=== PATIENT | male | born 1965 | race Hispanic/Latino ===

== ENCOUNTER 2018-08-10 11:51 | Inpatient (IN) | payer BC, OTHER ==
--- NOTE | 2018-08-10 12:36 | ED PDOC ---
Arrival/HPI - General Chief Complaint: Altered Mental Status Historian: Patient, Family - History of Present Illness Narrative History of Present Illness (Text): 08/10/18 12:31 A 53 year old male whose past medical history includes a severe head injury from a fall on May 23, 2017 presents to the emergency room accompanied by family complaining of weakness and progression of mental status changes over the past week. Family states that at the time of the incident, the fall caused the patient to have hemorrhaging to the brain and he was treated at [facility], the closest facility to his injury. Patient then had surgery to place a bone flap on the injury and was placed in the [facility] ICU for 2 months. Patient's family reports patient was then placed in another center called [facility] for 2-3 months where patient still exhibited speech issues and right sided weakness but was able to recover in ambulating and feeding himself. Patient's family notes patient then went home to his family and continued to go to [facility] for regular check ups. Family reports noticing oozing from patient's surgical stitches since March and reports patient had a CT scan performed this past July where doctors noticed an infection prompting the patient to have surgery in [facility] to remove the infection last month. Per family, patient stayed in [facility] for 1 week and was then placed in a [facility] facility where he was administered an IV antibiotic. Family notes that over the past week the patient has been weaker than typical. They feel at times his speech is not at his typical baseline. Patient reports he has had frequent diarrhea and decreased appetite. He denies any abdominal pain. Denies bloody stool. Denies chest pain or shortness of breath. Denies scalp rash or redness. No shakes or chills. Surgeon: Dr. Rodriguez phone #[phone] 08/10/18 14:56 Time/Duration: 1 week Symptom Onset: Gradual Symptom Course: Unchanged Activities at Onset: Light Context: Home Past Medical History - Provider Review Nursing Documentation Reviewed: Yes - Infectious Disease Hx of Infectious Diseases: None - Cardiac Hx Hypertension: Yes - Neurological Other/Comment: BRAIN SUGERY - Psychiatric Hx Substance Use: No - Surgical History Other/Comment: BRAIN SURGERY - Anesthesia Hx Anesthesia: No Hx Anesthesia Reactions: No Hx Malignant Hyperthermia: No Family/Social History - Physician Review Nursing Documentation Reviewed: Yes Family/Social History: Unknown Family HX Smoking Status: Never Smoked Hx Alcohol Use: No Hx Substance Use: No Allergies/Home Meds Allergies/Adverse Reactions: Allergies No Known Allergies Allergy (Verified 08/10/18 12:04) Home Medications: Home Meds Medication Instructions Recorded Confirmed Acetaminophen [Tylenol] 650 mg PO PRN PRN 08/10/18 08/10/18 Atorvastatin [Lipitor] 20 mg PO DAILY 08/10/18 08/10/18 Levetiracetam [Roweepra] 1,000 mg PO 08/10/18 Lisinopril [Zestril] 10 mg PO DAILY 08/10/18 08/10/18 Review of Systems - Review of Systems Systems not reviewed;Unavailable: Other (hx supplemented by family) Constitutional: Fatigue Eyes: absent: Vision Changes ENT: absent: Hearing Changes Respiratory: absent: SOB Cardiovascular: absent: Chest Pain Gastrointestinal: Diarrhea, Appetite Changes (decreased appetite). absent: Abdominal Pain, Nausea, Vomiting, Hematemesis Genitourinary Male: absent: Frequency, Hematuria Musculoskeletal: absent: Back Pain, Neck Pain Skin: absent: Rash Neurological: Focal Weakness (chronic weakness to right upper extremity). absent: Headache Endocrine: absent: Polyuria Hemo/Lymphatic: absent: Easy Bleeding, Easy Bruising Psychiatric: absent: Suicidal Ideation Physical Exam - Physical Exam Narrative Physical Exam (Text): 08/10/18 12:33 Head: Craniotomy deformity chornic to skull. NO erythema or bleeding or drainage noted from scalp. Eyes: PERRL. EOMI. Conjunctivae are not pale. Visual acuity at baseline as reported. ENT: Mucous membranes are dry. No pharyngeal erythema or exudates. Neck: Supple. Full ROM. No JVD. No lymphadenopathy. No meningeal signs. Cardiovascular: Regular rate. Regular rhythm. Systolic murmur. Distal pulses are 2+ and symmetric. Pulmonary/Chest: No evidence of respiratory distress. Clear to auscultation bilaterally. No wheezing, rales or rhonchi. Abdominal: Soft and non-distended. There is no tenderness. No rebound, guarding, or rigidity. No organomegaly. Good bowel sounds. Rectal: foul smelling, brown, hemoccult positive stool Back: No CVA tenderness. Extremities: No edema. No cyanosis. No clubbing. No calf edema. Skin: Skin is warm and dry. No petechiae. No purpura. Neurological: Alert, awake, answers questions. Mild aphasia. Right upper extremity weakness at baseline. Good strength in left upper and bilateral lower extremities. No meningeal signs. Vital Signs Reviewed: Yes Vital Signs Temp Pulse Resp BP Pulse Ox 08/10/18 11:59 97.7 F 71 18 124/59 L 99 Temperature: Afebrile Blood Pressure: Normal Pulse: Regular Respiratory Rate: Normal Appearance: Positive for: Comfortable Pain Distress: None Mental Status: Positive for: other (alert, answers questions appropriately, answers questions) Medical Decision Making ED Course and Treatment: 08/10/18 12:34 Impression: 53 year old male presenting to the emergency room for weakness and gradual change in mental status over the past week. Plan: -- VBG -- Head CT without contrast -- EKG -- Labs -- CBC -- COAGs -- Chest X-ray -- Blood culture -- Urine culture -- Urinalysis -- Reassess and disposition Progress Notes: History obtained from daughter and family members as well as patient. Patient baseline has history of right upper extremity weakness and aphasia. With current neuro exam on stretcher with family present, patient is at baseline. I communicated with patient's covering physician at [facility], Dr. Blunt, and initial treatment plan and history reviewed. On re-exam, patient is noted to deny any pain or discomfort. He is resting comfortably. He notes several episodes of diarrhea "six-seven times a day" for the past several days. He denies abdominal pain although family states that occasionally the patient expresses discomfort. Currently abdomen is soft and nontender. He has been on iv antibiotics recently, differential diagnosis includes colitis, c.diff, dehydration. Cr is elevated. Family and patient unaware of baseline labs. Suspect component of dehydration. IV fluids ordered and patient monitored. As patient's physician is at [facility], patient and family request transfer to [facility]. I discussed labs and imaging with Dr. Blunt, accepts patient for transfer. Discussed with transfer service at [facility] at this time awaiting bed to open for transfer. At 1620 patient noted to have episode of diarrhea that was brown but foul smelling, appeared blood tinged. Hemoccult positive. Initial Hgb noted to be unremarkable although suspect possible component of GI bleeding. CT abdomen/pelvis ordered. Abdomen soft and nontender. Patient with no change in initial mental status. IV fluids continued. 08/10/18 19:[address] Blunt regarding patient's CT and patient's bowel movements and vitals. Given patient's bloody stool and renal failure, as well as currently no beds at [facility], Dr. Blunt recommends admission to [facility]. I discussed this with the patient's power of senior attorney, her daughter, via cell phone and disc ussed patient's ct scan, bloody bowel movements, and communication with Dr. Blunt from [facility]. She is agreeable to admission to [facility]. I discussed case with Dr. Silvestre Armstrong, oncall physician, who accepts admission and requests ICU admission. I have consulted and discussed ct and case with neurology healthcare management consultant Dr. Boston. I have discussed case with gi consult covering for Dr. Evangelista, and po vancomycin and iv metronidazole ordered. Heart rate 90, blood pressure improved to 108/70. - RAD Interpretation Narrative RAD Interpretations (Text): 08/10/18 14:54 Procedure: Head CT Dictator: Cj Marin Impression: Status post large left craniectomy with craniotomy. There is mass effect with midline shift by 11 mm towards the right side but without evidence of downward herniation. No intracranial mass or hemorrhage. Please note that there is no prior examination available for comparison at this time. 08/10/18 15:50 Procedure: Chest X-ray Dictator: Cj Marin Impression: No active disease. Cellar Packer: Radiologist - EKG Interpretation EKG Interpretation (Text): 08/10/18 12:34 EKG: Ordered, reviewed, and independently interpreted the EKG. Rate : 80 BPM Rhythm : NSR Interpretation : No ST-segment elevations or depressions, no T-wave inversions, normal intervals. Interpreted by ED Physician: Yes Type: 12 lead EKG - Scribe Statement The provider has reviewed the documentation as recorded by the An Pascual All medical record entries made by the An were at my direction and personally dictated by me. I have reviewed the chart and agree that the record accurately reflects my personal performance of the history, physical exam, medical decision making, and the department course for this patient. I have also personally directed, reviewed, and agree with the discharge instructions and disposition. Disposition/Present on Arrival - Present on Arrival Any Indicators Present on Arrival: No History of DVT/PE: No History of Uncontrolled Diabetes: No Urinary Catheter: No History of Decub. Ulcer: No History Surgical Site Infection Following: None - Disposition Have Diagnosis and Disposition been Completed?: Yes Diagnosis: Acute renal failure, Altered mental status, Diarrhea, Gastrointestinal bleeding Disposition: HOSPITALIZED Disposition Time: 15:00 Patient Plan: Admission Patient Problems: Current Active Problems Problem Status Onset Acute renal failure Acute Altered mental status Acute Diarrhea Acute Gastrointestinal bleeding Acute Toxic metabolic encephalopathy Acute Traumatic brain injury Chronic Condition: SERIOUS
[2018-08-10 13:00] LABS: VENOUS BLOOD GAS BASE EXCESS -5.1 mmol/L (0.0-2.0); VENOUS BLOOD GAS PO2 27 mm/Hg (30-55); VENOUS BLOOD PH 7.27 (7.32-7.43)
[2018-08-10 13:12] LABS: INR 1.06; PARTIAL THROMBOPLASTIN TIME 34.6 Seconds (26.9-38.3)
[2018-08-10 13:13] LABS: BASO # 0.01 K/mm3 (0.0-2.0); BASO % 0.2 % (0.0-3.0); HEMOGLOBIN 14.4 g/dL (14.0-18.0); LYMPH # 1.1 (1.2-3.4); LYMPH % 18.8 % (22.0-35.0); MEAN CELL VOLUME 81.8 fl (80.0-105.0); MEAN PLATELET VOLUME 10.4 fl (7.0-11.0); MONO # 1.4 (0.1-0.6); MONO % 23.2 % (1.0-6.0); PLATELET COUNT 344 10^3/uL (120.0-450.0); RBC 5.34 10^6/uL (3.5-6.1); RED CELL DISTRIBUTION WIDTH 13.4 % (11.5-14.5); WHITE BLOOD COUNT 5.9 10^3/uL (4.5-11.0)
[2018-08-10 13:19] LABS: ALB/GLOB RATIO 1.4 (1.1-1.8); ALT/SGPT 29 U/L (7-56); AST/SGOT 25 U/L (17-59); BLOOD UREA NITROGEN 33 mg/dL (7-21); CALCIUM 9.6 mg/dL (8.4-10.5); GFR NON-AFRICAN AMERICAN 16
[2018-08-10] MEDS ORDERED: Sodium Chloride 0.9% 500 ML IV STA ×2 (13:27→14:40)
[2018-08-10 13:31] LABS: TROPONIN I < 0.01 ng/mL
[2018-08-10 14:11] LABS: ATYPICAL LYMPHOCYTE 1 % (0.0-0.0); BAND 5 % (0-2); LYMPHOCYTE 20 % (22.0-35.0); MONOCYTE 18 % (1.0-6.0); NEUTROPHIL 54 % (50.0-70.0)
--- NOTE | 2018-08-10 14:16 | CT ---
Date of service: 08/10/2018 PROCEDURE: CT HEAD WITHOUT CONTRAST. HISTORY: ams, hx of brain surgery one year ago COMPARISON: None available. TECHNIQUE: Axial computed tomography images were obtained through the head/brain without intravenous contrast. Radiation dose: Total exam DLP = 841.82 mGy-cm. This CT exam was performed using one or more of the following dose reduction techniques: Automated exposure control, adjustment of the mA and/or kV according to patient size, and/or use of iterative reconstruction technique. FINDINGS: HEMORRHAGE: No intracranial hemorrhage. BRAIN: Status post resection of large portion of left frontal and temporal lobes and small portion of the left parietal lobe. There is encephalomalacia at the edge of the surgical bed. No intracranial mass identified. There is mass effect with resulting midline shift towards the right by approximately 11 mm, consistent with subfalcine herniation. The basilar cisterns are preserved. There is no cerebellar tonsillar herniation. VENTRICLES: No hydrocephalus. CALVARIUM: Large left craniotomy PARANASAL SINUSES: Unremarkable as visualized. No significant inflammatory changes. MASTOID AIR CELLS: Unremarkable as visualized. No inflammatory changes. OTHER FINDINGS: None. IMPRESSION: Status post large left craniectomy with craniotomy. There is mass effect with midline shift by 11 mm towards the right side but without evidence of downward herniation. No intracranial mass or hemorrhage. Please note that there is no prior examination available for comparison at this time.
[2018-08-10] MEDS ORDERED: Sodium Chloride 0.9% 1,000 ML IV SCH (15:30)
--- NOTE | 2018-08-10 15:38 | RAD ---
Date of service: 08/10/2018 PROCEDURE: CHEST RADIOGRAPH, 1 VIEW HISTORY: weakness COMPARISON: None available. FINDINGS: LUNGS: Clear. PLEURA: No pneumothorax or pleural fluid seen. CARDIOVASCULAR: No aortic atherosclerotic calcification present. Normal. OSSEOUS STRUCTURES: No significant abnormalities. VISUALIZED UPPER ABDOMEN: Normal. OTHER FINDINGS: None. IMPRESSION: No active disease.
[2018-08-10 17:15] LABS: PH,URINE 5.5 (4.7-8.0); URINE BILIRUBIN SMALL (NEGATIVE); URINE BLOOD MODERATE (NEGATIVE); URINE GLUCOSE (UA) NEGATIVE (NEGATIVE); URINE LEUKOCYTE ESTERASE NEGATIVE Leu/uL (NEGATIVE); URINE PROTEIN 30 mg/dL (<30 mg/dL); URINE UROBILINOGEN 0.2 E.U./dL (<1 E.U./dL)
--- NOTE | 2018-08-10 17:15 | CT ---
Date of service: 08/10/2018 PROCEDURE: CT Abdomen and Pelvis without intravenous contrast HISTORY: renal failure, hx of abdominal pain, diarrhea COMPARISON: None. TECHNIQUE: Without contrast.. Contrast dose: 0 Radiation dose: Total exam DLP = 677.55 mGy-cm. This CT exam was performed using one or more of the following dose reduction techniques: Automated exposure control, adjustment of the mA and/or kV according to patient size, and/or use of iterative reconstruction technique. FINDINGS: LOWER THORAX: Unremarkable. LIVER: Unremarkable. No gross lesion or ductal dilatation. GALLBLADDER AND BILE DUCTS: Unremarkable. PANCREAS: Unremarkable. No gross lesion or ductal dilatation. SPLEEN: Unremarkable. ADRENALS: Unremarkable. No mass. KIDNEYS AND URETERS: Unremarkable. No hydronephrosis. No solid mass. VASCULATURE: Unremarkable. No aortic aneurysm. There is atherosclerotic calcification of the abdominal aorta. BOWEL: There is mural thickening involving the cecum, ascending colon and hepatic flexure and proximal transverse colon, consistent with nonspecific colitis. This may be infectious or inflammatory etiology. There is no global colitis. No other abnormal bowel loops are identified. There is no bowel obstruction. APPENDIX: Unremarkable. Normal appendix. PERITONEUM: Unremarkable. No free fluid. No free air. LYMPH NODES: Unremarkable. No enlarged lymph nodes. BLADDER: Nondistended REPRODUCTIVE: Normal prostate BONES: No acute fracture. OTHER FINDINGS: None. IMPRESSION: Mural thickening of the right: Including hepatic flexure and proximal transverse colon. Consistent with nonspecific colitis. No additional abnormality.
[2018-08-10 17:16] LABS: URINE APPEARANCE SLIGHT-CLOUDY (CLEAR); URINE COLOR YELLOW (YELLOW)
[2018-08-10 17:25] LABS: URINE CALCIUM OXALATE CRYSTALS FEW /hpf
[2018-08-10] MEDS ORDERED: Sodium Chloride 0.9% 1,000 ML IV STA (17:30)
[2018-08-10] MEDS ORDERED: metroNIDAZOLE IV 500 mg/100 ml 500 MG/100 ML BAG IV ONE (17:59)
[2018-08-10] MEDS ORDERED: Vancomycin 25 MG/ML PO STA (18:55)
--- NOTE | 2018-08-10 20:11 | CARD ---
APPROVED REPORT Date of service: 08/10/2018 EKG Measurement Heart [id number] <Conclusion> Normal sinus rhythm Normal ECG
--- NOTE | 2018-08-10 20:17 | CP.PCM.CON ---
<JoiGuillaume - Last Filed: 08/10/18 21:21> History of Present Illness - History of Present Illness History of Present Illness: Guillaume Tamez PGY2 ICU Consult Note for Dr. Rodriguez Reason for consult: bloody BM and vasovagal Mr. Birch is a 53 year old male whose past medical history includes a severe head injury from a fall (2018) w/ residual expressive aphasia and right side weakness who presented to the emergency room accompanied by family complaining of weakness and progression of mental status changes over the past week. Family notes that over the past week the patient has been weaker than typical. They feel at times his speech is not at his typical baseline. Patient reports he has had frequent diarrhea and decreased appetite. In ED, patient was arranged to be transported to [place] as ED MD discussed with [place]'s neurosurgeon, however, the patient had a large BM that was brown w/ maroon blood streaks while in the ED and became hypotensive, tachycardic and dizzy. At that time, it was decided to keep the patient at [facility] [place] [facility], and ICU was consulted. At the time of our evaluation, the patient's family is not bedside. Patient is a poor historian. He states that at his baseline, he has 6-7 BMs everyday. He has been on antibiotics due to recent hospital admissions, but was not on any at home. He lives at home with his daughter/SHERLEY Valadez in [place]. He denies any abdominal pain, fevers/chills, nausea/vomiting. 12-pt ROS was reviewed and is otherwise unremarkable. PMH: as above PSH: cranial surgeries x2 Meds: reviewed, as per MAR Allergies: NKDA SHx: could not be obtained FHx: unremarkable Review of Systems - Review of Systems All systems: reviewed and no additional remarkable complaints except (as per HPI) Past Patient History - Infectious Disease Hx of Infectious Diseases: None - Past Social History Smoking Status: Never Smoked - CARDIAC Hx Hypertension: Yes - NEUROLOGICAL Other/Comment: BRAIN SUGERY - PSYCHIATRIC Hx Substance Use: No - SURGICAL HISTORY Other/Comment: BRAIN SURGERY - ANESTHESIA Hx Anesthesia: No Hx Anesthesia Reactions: No Hx Malignant Hyperthermia: No Meds Allergies/Adverse Reactions: Allergies Allergy/AdvReac Type Severity Reaction Status Date / Time No Known Allergies Allergy Verified 05/04/19 12:04 - Medications Medications: Current Medications Metronidazole (Flagyl) 500 mg in 100 mls @ 100 mls/hr IVPB Q8 [facility]; Protocol Sodium Chloride (Sodium Chloride 0.9%) 1,000 mls @ 125 mls/hr IV .Q8H [facility] Pantoprazole Sodium (Protonix Inj) 40 mg IVP Q12 [facility] Vancomycin HCl (Vancocin 25 Mg/Ml (Oral Use)) 125 mg PO QID [facility]; Protocol Physical Exam - Constitutional Appears: Non-toxic, No Acute Distress - Head Exam Additional comments: helmet to protect head ED MD evaluated w/o helmet - Eye Exam Eye Exam: Normal appearance, PERRL - ENT Exam ENT Exam: Mucous Membranes Moist, Normal Exam - Neck Exam Neck exam: Positive for: Normal Inspection. Negative for: Tenderness - Respiratory Exam Respiratory Exam: NORMAL BREATHING PATTERN. absent: Respiratory Distress, Stridor - Cardiovascular Exam Cardiovascular Exam: RRR, +S1, +S2 - GI/Abdominal Exam GI & Abdominal Exam: Normal Bowel Sounds, Soft. absent: Distended, Tenderness - Rectal Exam Rectal Exam: Deferred - Extremities Exam Extremities exam: Positive for: normal inspection. Negative for: pedal edema - Neurological Exam Neurological exam: Alert Additional comments: oriented x2 (person and place) - Skin Skin Exam: Normal Color, Warm Results - Vital Signs Recent Vital Signs: Last Vital Signs Temp 97.7 F 08/10/18 11:59 Pulse 72 08/10/18 19:48 Resp 15 08/10/18 19:48 BP 95/56 L 08/10/18 19:48 Pulse Ox 100 08/10/18 19:48 - Labs Result Diagrams: 08/10/18 12:45 08/10/18 12:45 Labs: Laboratory Results - last 24 hr 08/10/18 08/10/18 08/10/18 12:14 12:45 12:45 WBC 5.9 RBC 5.34 Hgb 14.4 Hct 43.7 MCV 81.8 MCH 27.0 MCHC 33.0 RDW 13.4 Plt Count 344 MPV 10.4 Neut % (Auto) 57.8 Lymph % (Auto) 18.8 L [place] % (Auto) 23.2 H Eos % (Auto) 0.0 L Baso % (Auto) 0.2 Lymph # (Auto) 1.1 L [place] # (Auto) 1.4 H Eos # (Auto) 0.0 Baso # (Auto) 0.01 Absolute Neuts (auto) 3.39 Neutrophils % (Manual) 54 Band Neutrophils % 5 H Lymphocytes % (Manual) 20 L Atypical Lymphs % 1 H Monocytes % (Manual) 18 H PT INR APTT pO2 VBG pH VBG pCO2 VBG HCO3 VBG Total CO2 VBG O2 Sat (Calc) VBG Base Excess VBG Potassium Glucose Lactate FiO2 Sodium 143 Potassium 4.7 Chloride 105 Carbon Dioxide 21 Anion Gap 21 H BUN 33 H Creatinine 4.0 H Est GFR ( Amer) 19 Est GFR (Non-Af Amer) 16 POC Glucose (mg/dL) 116 H Random Glucose 98 Calcium 9.6 Magnesium 2.3 H Total Bilirubin 0.3 AST 25 ALT 29 Alkaline Phosphatase 105 Lactate Dehydrogenase 372 Total Creatine Kinase 61 Troponin I < 0.01 Total Protein 8.5 H Albumin 5.0 H Globulin 3.5 Albumin/Globulin Ratio 1.4 Venous Blood Potassium Urine Color Urine Appearance Urine pH Ur Specific [place] Urine Protein Urine Glucose (UA) Urine Ketones Urine Blood Urine Nitrate Urine Bilirubin Urine Urobilinogen Ur Leukocyte Esterase Urine RBC Urine WBC Ur Epithelial Cells Calcium Oxalate Crystal 08/10/18 08/10/18 08/10/18 12:45 12:55 16:30 WBC RBC Hgb Hct MCV MCH MCHC RDW Plt Count MPV Neut % (Auto) Lymph % (Auto) [place] % (Auto) Eos % (Auto) Baso % (Auto) Lymph # (Auto) [place] # (Auto) Eos # (Auto) Baso # (Auto) Absolute Neuts (auto) Neutrophils % (Manual) Band Neutrophils % Lymphocytes % (Manual) Atypical Lymphs % Monocytes % (Manual) PT 12.0 INR 1.06 APTT 34.6 pO2 27 L VBG pH 7.27 L VBG pCO2 48.0 VBG HCO3 22.0 VBG Total CO2 23.5 VBG O2 Sat (Calc) 47.9 VBG Base Excess -5.1 L VBG Potassium 5.1 Glucose 95 Lactate 0.9 FiO2 21.0 Sodium 137.0 Potassium Chloride 108.0 H Carbon Dioxide Anion Gap BUN Creatinine Est GFR ( Amer) Est GFR (Non-Af Amer) POC Glucose (mg/dL) Random Glucose Calcium Magnesium Total Bilirubin AST ALT Alkaline Phosphatase Lactate Dehydrogenase Total Creatine Kinase Troponin I Total Protein Albumin Globulin Albumin/Globulin Ratio Venous Blood Potassium 5.1 Urine Color Yellow Urine Appearance Slight-cloudy Urine pH 5.5 Ur Specific [place] >= 1.030 Urine Protein 30 H Urine Glucose (UA) Negative Urine Ketones Trace H Urine Blood Moderate H Urine Nitrate Negative Urine Bilirubin Small H Urine Urobilinogen 0.2 Ur Leukocyte Esterase Negative Urine RBC 5 - 10 H Urine WBC None Ur Epithelial Cells None Calcium Oxalate Crystal Few 08/10/18 16:41 WBC RBC Hgb Hct MCV MCH MCHC RDW Plt Count MPV Neut % (Auto) Lymph % (Auto) [place] % (Auto) Eos % (Auto) Baso % (Auto) Lymph # (Auto) [place] # (Auto) Eos # (Auto) Baso # (Auto) Absolute Neuts (auto) Neutrophils % (Manual) Band Neutrophils % Lymphocytes % (Manual) Atypical Lymphs % Monocytes % (Manual) PT INR APTT pO2 VBG pH VBG pCO2 VBG HCO3 VBG Total CO2 VBG O2 Sat (Calc) VBG Base Excess VBG Potassium Glucose Lactate FiO2 Sodium Potassium Chloride Carbon Dioxide Anion Gap BUN Creatinine Est GFR ( Amer) Est GFR (Non-Af Amer) POC Glucose (mg/dL) 121 H Random Glucose Calcium Magnesium Total Bilirubin AST ALT Alkaline Phosphatase Lactate Dehydrogenase Total Creatine Kinase Troponin I Total Protein Albumin Globulin Albumin/Globulin Ratio Venous Blood Potassium Urine Color Urine Appearance Urine pH Ur Specific [place] Urine Protein Urine Glucose (UA) Urine Ketones Urine Blood Urine Nitrate Urine Bilirubin Urine Urobilinogen Ur Leukocyte Esterase Urine RBC Urine WBC Ur Epithelial Cells Calcium Oxalate Crystal Assessment & Plan - Assessment and Plan (Free Text) Assessment: 53 year old male whose past medical history includes a severe head injury from a fall (2018) w/ residual expressive aphasia and right side weakness who is admitted for diarrhea and colitis. CT reviewed showing diffuse colitis, likely indicating c.diff colitis given history of extensive recent antibiotic use. Patient is having hypotensive so patient is also at risk for ischemic colitis. Urine is concentrated, so patient's elevated Cr likely indicated pre-renal TONO and Hgb is probably hemoconcentrated. Plan: Neuro - Head CT reviewed; ED discussed findings w/ Dr. [place]'s neurosurgery - at baseline - neurochecks - admit to ICU for monitoring - awaiting neuro recs - cont home dose Keppra Cardio - holding home BP meds - NS @ 125 - maintain MAP > 65 Pulm - O2 PRN - maintain SaO2> 90 GI - CT abd/pelvis reviewed; showing diffuse colitis - cont Protonix IVP q12 - c.diff labs ordered; started empirically on Vanco PO and Flagyl - celiac disease comprehensive panel ordered, which includes ANCA and ASCA to r/o IBD - GI consulted, recs appreciated - NPO Renal - TONO noted, unknown baseline - continue NS for IVF @ 125 - f/u CMP - holding ACEi - avoid nephrotoxins Heme - will repeat CBC to monitor for hematochezia - currently no signs of symptomatic anemia ID - will start empirically on PO vanc and Flagyl - Blood, urine and c.diff cultures sent - maintain normothermia Endo - maintain euglycemia DVT ppx: SCDs GI ppx: protonix Case was reviewed with Dr. Rodriguez <Alycia Rodriguez - Last Filed: 08/11/18 18:44> Meds - Medications Medications: Current Medications Atorvastatin Calcium (Lipitor) 20 mg PO DIN [facility] Last Admin: 08/11/18 17:37 Dose: 20 mg Sodium Chloride (Sodium Chloride 0.9%) 1,000 mls @ 125 mls/hr IV .Q8H [facility] Last Admin: 08/11/18 15:36 Dose: 125 mls/hr Levetiracetam (Keppra) 1,000 mg PO BID [facility] Last Admin: 08/11/18 17:36 Dose: 1,000 mg Lisinopril (Zestril) 10 mg PO DAILY [facility] Last Admin: 08/11/18 09:21 Dose: 10 mg Pantoprazole Sodium (Protonix Inj) 40 mg IVP Q12 [facility] Last Admin: 08/11/18 09:20 Dose: 40 mg Results - Vital Signs Recent Vital Signs: Last Vital Signs Temp 97.2 F L 08/11/18 16:00 Pulse 81 08/11/18 17:40 Resp 21 08/11/18 17:40 BP 98/75 L 08/11/18 17:00 Pulse Ox 100 08/11/18 17:40 - Labs Result Diagrams: 08/11/18 04:40 08/11/18 04:40 Labs: Laboratory Results - last 24 hr 08/10/18 08/10/18 08/10/18 22:00 23:45 23:45 WBC 4.2 L D RBC 4.69 Hgb 12.4 L D Hct 38.4 L MCV 81.9 MCH 26.4 MCHC 32.3 RDW 13.5 Plt Count 260 MPV 10.0 Neut % (Auto) 36.3 L Lymph % (Auto) 30.5 [place] % (Auto) 32.5 H Eos % (Auto) 0.2 L Baso % (Auto) 0.5 Lymph # (Auto) 1.3 [place] # (Auto) 1.4 H Eos # (Auto) 0.0 Baso # (Auto) 0.02 Absolute Neuts (auto) 1.51 PT INR Sodium Potassium Chloride Carbon Dioxide Anion Gap BUN Creatinine Est GFR ( Amer) Est GFR (Non-Af Amer) Random Glucose Hemoglobin A1c Calcium Phosphorus Magnesium Iron 65 TIBC 313 % Saturation 21 Transferrin Ferritin Total Bilirubin AST ALT Alkaline Phosphatase Total Protein Albumin Globulin Albumin/Globulin Ratio Triglycerides Cholesterol LDL Cholesterol Direct HDL Cholesterol Vitamin B12 Folate TSH 3rd Generation Blood Type O POSITIVE Blood Type Confirm Antibody Screen Negative BBK History Checked No verified bt 08/10/18 08/11/18 08/11/18 23:45 04:40 04:40 WBC RBC Hgb Hct MCV MCH MCHC RDW Plt Count MPV Neut % (Auto) Lymph % (Auto) [place] % (Auto) Eos % (Auto) Baso % (Auto) Lymph # (Auto) [place] # (Auto) Eos # (Auto) Baso # (Auto) Absolute Neuts (auto) PT INR Sodium 141 Potassium 4.8 Chloride 111 H Carbon Dioxide 20 L Anion Gap 16 BUN 30 H Creatinine 3.0 H Est GFR ( Amer) 27 Est GFR (Non-Af Amer) 22 Random Glucose 87 Hemoglobin A1c 5.5 Calcium 9.0 Phosphorus Magnesium Iron TIBC % Saturation Transferrin 181.92 L Ferritin Total Bilirubin 0.3 AST 15 L D ALT 21 Alkaline Phosphatase 90 Total Protein 6.8 Albumin 4.0 Globulin 2.9 Albumin/Globulin Ratio 1.4 Triglycerides Cholesterol LDL Cholesterol Direct HDL Cholesterol Vitamin B12 Folate TSH 3rd Generation 2.09 Blood Type Blood Type Confirm Antibody Screen BBK History Checked 08/11/18 08/11/18 08/11/18 04:40 04:40 04:40 WBC 4.0 L RBC 4.75 Hgb 12.7 L Hct 39.1 L MCV 82.3 MCH 26.7 MCHC 32.5 RDW 13.5 Plt Count 250 MPV 10.4 Neut % (Auto) Lymph % (Auto) [place] % (Auto) Eos % (Auto) Baso % (Auto) Lymph # (Auto) [place] # (Auto) Eos # (Auto) Baso # (Auto) Absolute Neuts (auto) PT INR Sodium 143 Potassium 5.0 Chloride 113 H Carbon Dioxide 19 L Anion Gap 17 BUN 29 H Creatinine 2.6 H Est GFR ( Amer) 31 Est GFR (Non-Af Amer) 26 Random Glucose 85 Hemoglobin A1c Calcium 9.0 Phosphorus 4.0 Magnesium 2.2 Iron TIBC % Saturation Transferrin Ferritin 312.0 Total Bilirubin 0.3 AST 15 L ALT 25 Alkaline Phosphatase 92 Total Protein 7.0 Albumin 4.1 Globulin 2.9 Albumin/Globulin Ratio 1.4 Triglycerides 158 Cholesterol 86 L LDL Cholesterol Direct 35 HDL Cholesterol 27 L Vitamin B12 289 Folate 9.3 TSH 3rd Generation Blood Type Blood Type Confirm O POSITIVE Antibody Screen BBK History Checked 08/11/18 04:40 WBC RBC Hgb Hct MCV MCH MCHC RDW Plt Count MPV Neut % (Auto) Lymph % (Auto) [place] % (Auto) Eos % (Auto) Baso % (Auto) Lymph # (Auto) [place] # (Auto) Eos # (Auto) Baso # (Auto) Absolute Neuts (auto) PT 12.7 H INR 1.14 Sodium Potassium Chloride Carbon Dioxide Anion Gap BUN Creatinine Est GFR ( Amer) Est GFR (Non-Af Amer) Random Glucose Hemoglobin A1c Calcium Phosphorus Magnesium Iron TIBC % Saturation Transferrin Ferritin Total Bilirubin AST ALT Alkaline Phosphatase Total Protein Albumin Globulin Albumin/Globulin Ratio Triglycerides Cholesterol LDL Cholesterol Direct HDL Cholesterol Vitamin B12 Folate TSH 3rd Generation Blood Type Blood Type Confirm Antibody Screen BBK History Checked Attending/Attestation - Attestation I have personally seen and examined this patient.: Yes I have fully participated in the care of the patient.: Yes I have reviewed all pertinent clinical information: Yes Notes (Text): 08/11/18 18:43 Seen and examined. Discussed with resident. A&P as above. GIB 2/2 colitis R/ C diff TONO Mgmt as above
[2018-08-10] MEDS: Sodium Chloride 0.9% 1,000 ML IV SCH (22:00)
[2018-08-10] MEDS: metroNIDAZOLE IV 500 mg/100 ml 500 MG/100 ML BAG IVPB SCH (22:57)
[2018-08-10] MEDS: Vancomycin 25 MG/ML PO SCH (23:04)
[2018-08-10 23:16] LABS: IRON 65 ug/dL (45-180)
[2018-08-10 23:25] LABS: % IRON SATURATION 21 % (20-55); TOTAL IRON BINDING CAPACITY 313 ug/dL (261-462)
[2018-08-10 23:43] VITALS: BMI 22.9
[2018-08-10 23:53] LABS: BASO # 0.02 K/mm3 (0.0-2.0); BASO % 0.5 % (0.0-3.0); EOS % 0.2 % (1.5-5.0); LYMPH # 1.3 (1.2-3.4); LYMPH % 30.5 % (22.0-35.0); MEAN CELL VOLUME 81.9 fl (80.0-105.0); MEAN CORPUSCULAR HEMOGLOBIN 26.4 pg (25.0-35.0); MEAN CORPUSCULAR HGB CONC 32.3 g/dl (31.0-37.0); MONO # 1.4 (0.1-0.6); MONO % 32.5 % (1.0-6.0); RBC 4.69 10^6/uL (3.5-6.1); RED CELL DISTRIBUTION WIDTH 13.5 % (11.5-14.5); WHITE BLOOD COUNT 4.2 10^3/uL (4.5-11.0)
[2018-08-11 00:03] LABS: HEMOGLOBIN 12.4 g/dL (14.0-18.0)
[2018-08-11 00:06] LABS: ALB/GLOB RATIO 1.4 (1.1-1.8)
--- NOTE | 2018-08-11 03:30 | HP ---
DATE OF EXAM: 08/10/2018 HISTORY OF PRESENT ILLNESS: I was called down to the ER to see him this evening. He is a 53-year-old white man who comes in to the emergency room complaining of weakness, change in mental status over the past week. He had a past medical history of a severe head injury from a fall which caused him to have a hemorrhagic bleed at [place]. They put a bone flap in. He is still having speech issues, right-sided weakness and there was oozing coming from the surgical stitches in the head, had infection, went back to [place], on IV antibiotics. I believe take out the brain area which is infected and brain surgery. Hypertensive. FAMILY HISTORY: Unknown family history. SOCIAL HISTORY: Nonsmoker, nondrinker, no drugs. ALLERGIES: NO KNOWN DRUG ALLERGIES. MEDICATIONS: He is on Tylenol, Lipitor, levetiracetam 1000 mg, and Zestril. REVIEW OF SYSTEMS: Supplemented by family; he is tired. No acute vision or hearing changes. No shortness of breath. No chest pain. He had some diarrhea. Decreased appetite. No abdominal pain, just weird in the stomach. No problems urinating. No back pain, no neck pain, no rashes. He is just focally weak, chronic weakness in right upper extremity. No problems urinating. No easy bleeding, no easy bruising. No suicidal thoughts. PHYSICAL EXAMINATION: VITAL SIGNS: 97.7 temperature, 71 pulse, 18 respiratory rate, 124/59 blood pressure, 99% O2 sat. HEENT: His head is not normocephalic. 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 He wears a skullcap. Extraocular muscles are intact. Throat is moist. NECK: Supple. No lymphadenopathy. No meningeal signs. HEART: Regular rate. There is systolic murmur 2/6. LUNGS: Decreased breath sounds bilaterally, but clear to auscultation. No wheezes, no rhonchi, no rales. ABDOMEN: Soft, nontender, positive bowel sounds. No guarding, no rebound, no CVA tenderness. Hemoccult positive stool. We will have GI take a look at him. EXTREMITIES: No CVA tenderness. No edema of the extremities. SKIN: Warm and dry. No apparent rashes or ulcers. NEUROLOGIC: He is alert and awake, answers questions, mild aphasia. Good strength in bilateral lower extremities. DIAGNOSTIC DATA: He had multiple tests done. He had a CT scan of the abdomen and pelvis, which showed mural thickening of the right, nonspecific colitis. CT scan of the head shows a surgery, post large left craniectomy with craniotomy. There was a mass effect with midline shift without herniation. No bleed at this time. Chest x-ray: No active disease. EKG is normal sinus rhythm. He had lab tests. Sodium 143, potassium 4.7, BUN is 33, creatinine is 4, quite elevated. GFR 16, sugar is 121, calcium is 9.6. Magnesium 2.3, total bili is 0.3. AST is 25, ALT is 29, alk phos 105. Lactate dehydrogenase is 372. Troponin I is less than 0.01, total protein is 8.5. Lactate is 0.9. He has 1.06 INR, 5.9 white count, 14.4 hemoglobin, 43.7 hematocrit with 344 platelets. The plan was supposed to be transferring him to [facility]. They do not have any beds. We had to put him to intensive care unit. He has a GI bleed, colitis, history of brain surgery, and acute kidney injury versus renal failure. Admitted to intensive care unit. He will have consults with GI, Neuro, Infectious Disease, and Renal. IV fluids, put back on his medications. He will be on vancomycin and metronidazole. He is n.p.o. We will check his labs in the morning. Arvind Armstrong DO MTDJulissa
[2018-08-11 05:02] LABS: INR 1.14; PROTHROMBIN TIME 12.7 SECONDS (9.4-12.5)
[2018-08-11 05:08] LABS: ALB/GLOB RATIO 1.4 (1.1-1.8); ALBUMIN 4.1 g/dL (3.0-4.8)
[2018-08-11] MEDS: Sodium Chloride 0.9% 1,000 ML IV SCH ×3 (05:08→23:30)
[2018-08-11] MEDS: metroNIDAZOLE IV 500 mg/100 ml 500 MG/100 ML BAG IVPB SCH ×2 (05:09→14:19)
[2018-08-11 05:13] LABS: HEMOGLOBIN 12.7 g/dL (14.0-18.0); MEAN CELL VOLUME 82.3 fl (80.0-105.0); MEAN CORPUSCULAR HEMOGLOBIN 26.7 pg (25.0-35.0); MEAN CORPUSCULAR HGB CONC 32.5 g/dl (31.0-37.0); MEAN PLATELET VOLUME 10.4 fl (7.0-11.0); RBC 4.75 10^6/uL (3.5-6.1); RED CELL DISTRIBUTION WIDTH 13.5 % (11.5-14.5)
[2018-08-11] MEDS: Vancomycin 25 MG/ML PO SCH ×2 (09:21→14:20)
--- NOTE | 2018-08-11 10:04 | CP.PCM.CON ---
History of Present Illness - History of Present Illness History of Present Illness: Asked by Dr. Armstrong for a GI consultation on this patient. 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 He reports having multiple (up to 5 episodes) of loose, non-bloody bowel movements daily during this time period with associated mild 3/10 intensity epigastric pain. As a result he feels fatigued and came to hospital for further evaluation, was found to be hypotensive in ER and sent to intensive care unit. He denies nausea, vomiting, fever/chills, weight loss, rectal bleeding, recent travel, sick contacts, or antibiotic use. As per nursing staff, no bowel movements overnight, he had one soft bowel movement this morning. He claims to have had a colonoscopy 4 years ago which was normal as per patient, though he cannot recall where it was performed. Social history: non-smoker, social ETOH use Family history: father (unknown cancer) Review of Systems - Review of Systems Review of Systems: - All other comprehensive 12 point review of systems performed, negative - Constitutional Constitutional: Fatigue, Lethargy - Cardiovascular Cardiovascular: absent: Acrocyanosis, Chest Pain, Chest Pain at Rest, Chest Pain with Activity, Claudication, Diaphoresis, Dyspnea, Dyspnea on Exertion, Edema, Irregular Heart Rhythm, Pain Radiating to Arm/Neck/Jaw, Leg Edema, Leg Ulcers, Lightheadedness, Orthopnea, Palpitations, Paroxysmal Nocturnal Dyspnea, Pedal Edema, Radiating Pain, Rapid Heart Rate, Slow Heart Rate, Syncope, Other - Respiratory Respiratory: absent: Cough, Dyspnea, Hemoptysis, Dyspnea on Exertion, Wheezing, Snoring, Stridor, Pain on Inspiration, Chest Congestion, Excessive Mucous Production, Change in Mucous Color, Pain with Coughing, Other - Gastrointestinal Gastrointestinal: Abdominal Pain, Diarrhea - Musculoskeletal Musculoskeletal: absent: Abnormal Gait, Arthralgias, Atrophy, Back Pain, Deformity, Joint Swelling, Limited Range of Motion, Loss of Height, Muscle Cramps, Muscle Weakness, Myalgias, Neck Pain, Numbness, Radiating Pain into Limb, Stiffness, Tingling, Other - Neurological Neurological: absent: Abnormal Gait, Abnormal Hearing, Abnormal Movements, Abnormal Speech, Behavioral Changes, Burning Sensations, Confusion, Convulsions, Disequilibrium, Dizziness, Numbness, Focal Weakness, Frequent Falls, Headaches, Lack of Coordination, Loss of Vision, Memory Loss, Paresthesias, Radicular Pain, Restless Legs, Sensory Deficit, Syncope, Tingling, Tremor, Vertigo, Weakness, Other Visual Disturbances, Other Past Patient History - Infectious Disease Hx of Infectious Diseases: None - Past Social History Smoking Status: Never Smoked - CARDIAC Hx Hypertension: Yes - PULMONARY Hx Respiratory Disorders: No - NEUROLOGICAL Other/Comment: .traumatic brain injury.BRAIN SUGERY - HEENT Hx HEENT Problems: No - RENAL Hx Chronic Kidney Disease: No - ENDOCRINE/METABOLIC Hx Endocrine Disorders: No - HEMATOLOGICAL/ONCOLOGICAL Hx Blood Disorders: No - INTEGUMENTARY Hx Dermatological Problems: No - MUSCULOSKELETAL/RHEUMATOLOGICAL Hx Falls: Yes - GASTROINTESTINAL Hx Gastrointestinal Disorders: No - GENITOURINARY/GYNECOLOGICAL Hx Genitourinary Disorders: No - PSYCHIATRIC Hx Psychophysiologic Disorder: No Hx Substance Use: No - SURGICAL HISTORY Hx Surgeries: Yes Other/Comment: craniectomy,craniotomy.BRAIN SURGERY - ANESTHESIA Hx Anesthesia: No Hx Anesthesia Reactions: No Hx Malignant Hyperthermia: No Meds Allergies/Adverse Reactions: Allergies Allergy/AdvReac Type Severity Reaction Status Date / Time No Known Allergies Allergy Verified 08/10/18 12:04 - Medications Medications: Current Medications Atorvastatin Calcium (Lipitor) 20 mg PO DIN HARIS Metronidazole (Flagyl) 500 mg in 100 mls @ 100 mls/hr IVPB Q8 [facility]; Protocol Last Admin: 08/11/18 05:09 Dose: 100 mls/hr Sodium Chloride (Sodium Chloride 0.9%) 1,000 mls @ 125 mls/hr IV .Q8H [facility] Last Admin: 08/11/18 05:08 Dose: 125 mls/hr Levetiracetam (Keppra) 1,000 mg PO BID [facility] Last Admin: 08/11/18 09:21 Dose: 1,000 mg Lisinopril (Zestril) 10 mg PO DAILY [facility] Last Admin: 08/11/18 09:21 Dose: 10 mg Pantoprazole Sodium (Protonix Inj) 40 mg IVP Q12 [facility] Last Admin: 08/11/18 09:20 Dose: 40 mg Vancomycin HCl (Vancocin 25 Mg/Ml (Oral Use)) 125 mg PO QID [facility]; Protocol Last Admin: 08/11/18 09:21 Dose: 125 mg Physical Exam - Constitutional Appears: Non-toxic, No Acute Distress - Head Exam Additional comments: + helmet intact - Eye Exam Eye Exam: EOMI, Normal appearance - ENT Exam ENT Exam: Mucous Membranes Moist - Respiratory Exam Respiratory Exam: Clear to Auscultation Bilateral - Cardiovascular Exam Cardiovascular Exam: REGULAR RHYTHM, +S1, +S2 - GI/Abdominal Exam GI & Abdominal Exam: Normal Bowel Sounds, Soft Additional comments: non tender to palpation in four quadrants no palpable hepato/splenomegaly - Extremities Exam Extremities exam: Positive for: normal inspection - Neurological Exam Neurological exam: Alert, CN II-XII Intact, Oriented x3, Reflexes Normal Additional comments: RUE strength 1/5 - Psychiatric Exam Psychiatric exam: Normal Affect, Normal Mood - Skin Skin Exam: Dry, Intact, Normal Color, Warm Results - Vital Signs Recent Vital Signs: Last Vital Signs Temp 97.9 F 08/11/18 08:00 Pulse 78 08/11/18 09:21 Resp 15 08/11/18 05:59 BP 112/60 08/11/18 09:21 Pulse Ox 99 08/11/18 05:59 - Labs Result Diagrams: 08/11/18 04:40 08/11/18 04:40 Labs: Laboratory Results - last 24 hr 08/10/18 08/10/18 08/10/18 12:14 12:45 12:45 WBC 5.9 RBC 5.34 Hgb 14.4 Hct 43.7 MCV 81.8 MCH 27.0 MCHC 33.0 RDW 13.4 Plt Count 344 MPV 10.4 Neut % (Auto) 57.8 Lymph % (Auto) 18.8 L [place] % (Auto) 23.2 H Eos % (Auto) 0.0 L Baso % (Auto) 0.2 Lymph # (Auto) 1.1 L [place] # (Auto) 1.4 H Eos # (Auto) 0.0 Baso # (Auto) 0.01 Absolute Neuts (auto) 3.39 Neutrophils % (Manual) 54 Band Neutrophils % 5 H Lymphocytes % (Manual) 20 L Atypical Lymphs % 1 H Monocytes % (Manual) 18 H PT INR APTT pO2 VBG pH VBG pCO2 VBG HCO3 VBG Total CO2 VBG O2 Sat (Calc) VBG Base Excess VBG Potassium Glucose Lactate FiO2 Sodium 143 Potassium 4.7 Chloride 105 Carbon Dioxide 21 Anion Gap 21 H BUN 33 H Creatinine 4.0 H Est GFR ( Amer) 19 Est GFR (Non-Af Amer) 16 POC Glucose (mg/dL) 116 H Random Glucose 98 Calcium 9.6 Phosphorus Magnesium 2.3 H Iron TIBC % Saturation Total Bilirubin 0.3 AST 25 ALT 29 Alkaline Phosphatase 105 Lactate Dehydrogenase 372 Total Creatine Kinase 61 Troponin I < 0.01 Total Protein 8.5 H Albumin 5.0 H Globulin 3.5 Albumin/Globulin Ratio 1.4 Triglycerides Cholesterol LDL Cholesterol Direct HDL Cholesterol TSH 3rd Generation Venous Blood Potassium Urine Color Urine Appearance Urine pH Ur Specific [place] Urine Protein Urine Glucose (UA) Urine Ketones Urine Blood Urine Nitrate Urine Bilirubin Urine Urobilinogen Ur Leukocyte Esterase Urine RBC Urine WBC Ur Epithelial Cells Calcium Oxalate Crystal Blood Type Blood Type Confirm Antibody Screen BBK History Checked 08/10/18 08/10/18 08/10/18 12:45 12:55 16:30 WBC RBC Hgb Hct MCV MCH MCHC RDW Plt Count MPV Neut % (Auto) Lymph % (Auto) [place] % (Auto) Eos % (Auto) Baso % (Auto) Lymph # (Auto) [place] # (Auto) Eos # (Auto) Baso # (Auto) Absolute Neuts (auto) Neutrophils % (Manual) Band Neutrophils % Lymphocytes % (Manual) Atypical Lymphs % Monocytes % (Manual) PT 12.0 INR 1.06 APTT 34.6 pO2 27 L VBG pH 7.27 L VBG pCO2 48.0 VBG HCO3 22.0 VBG Total CO2 23.5 VBG O2 Sat (Calc) 47.9 VBG Base Excess -5.1 L VBG Potassium 5.1 Glucose 95 Lactate 0.9 FiO2 21.0 Sodium 137.0 Potassium Chloride 108.0 H Carbon Dioxide Anion Gap BUN Creatinine Est GFR ( Amer) Est GFR (Non-Af Amer) POC Glucose (mg/dL) Random Glucose Calcium Phosphorus Magnesium Iron TIBC % Saturation Total Bilirubin AST ALT Alkaline Phosphatase Lactate Dehydrogenase Total Creatine Kinase Troponin I Total Protein Albumin Globulin Albumin/Globulin Ratio Triglycerides Cholesterol LDL Cholesterol Direct HDL Cholesterol TSH 3rd Generation Venous Blood Potassium 5.1 Urine Color Yellow Urine Appearance Slight-cloudy Urine pH 5.5 Ur Specific [place] >= 1.030 Urine Protein 30 H Urine Glucose (UA) Negative Urine Ketones Trace H Urine Blood Moderate H Urine Nitrate Negative Urine Bilirubin Small H Urine Urobilinogen 0.2 Ur Leukocyte Esterase Negative Urine RBC 5 - 10 H Urine WBC None Ur Epithelial Cells None Calcium Oxalate Crystal Few Blood Type Blood Type Confirm Antibody Screen BBK History Checked 08/10/18 08/10/18 08/10/18 16:41 22:00 23:45 WBC RBC Hgb Hct MCV MCH MCHC RDW Plt Count MPV Neut % (Auto) Lymph % (Auto) [place] % (Auto) Eos % (Auto) Baso % (Auto) Lymph # (Auto) [place] # (Auto) Eos # (Auto) Baso # (Auto) Absolute Neuts (auto) Neutrophils % (Manual) Band Neutrophils % Lymphocytes % (Manual) Atypical Lymphs % Monocytes % (Manual) PT INR APTT pO2 VBG pH VBG pCO2 VBG HCO3 VBG Total CO2 VBG O2 Sat (Calc) VBG Base Excess VBG Potassium Glucose Lactate FiO2 Sodium Potassium Chloride Carbon Dioxide Anion Gap BUN Creatinine Est GFR ( Amer) Est GFR (Non-Af Amer) POC Glucose (mg/dL) 121 H Random Glucose Calcium Phosphorus Magnesium Iron 65 TIBC 313 % Saturation 21 Total Bilirubin AST ALT Alkaline Phosphatase Lactate Dehydrogenase Total Creatine Kinase Troponin I Total Protein Albumin Globulin Albumin/Globulin Ratio Triglycerides Cholesterol LDL Cholesterol Direct HDL Cholesterol TSH 3rd Generation Venous Blood Potassium Urine Color Urine Appearance Urine pH Ur Specific [place] Urine Protein Urine Glucose (UA) Urine Ketones Urine Blood Urine Nitrate Urine Bilirubin Urine Urobilinogen Ur Leukocyte Esterase Urine RBC Urine WBC Ur Epithelial Cells Calcium Oxalate Crystal Blood Type O POSITIVE Blood Type Confirm Antibody Screen Negative BBK History Checked No verified bt 08/10/18 08/10/18 08/11/18 23:45 23:45 04:40 WBC 4.2 L D RBC 4.69 Hgb 12.4 L D Hct 38.4 L MCV 81.9 MCH 26.4 MCHC 32.3 RDW 13.5 Plt Count 260 MPV 10.0 Neut % (Auto) 36.3 L Lymph % (Auto) 30.5 [place] % (Auto) 32.5 H Eos % (Auto) 0.2 L Baso % (Auto) 0.5 Lymph # (Auto) 1.3 [place] # (Auto) 1.4 H Eos # (Auto) 0.0 Baso # (Auto) 0.02 Absolute Neuts (auto) 1.51 Neutrophils % (Manual) Band Neutrophils % Lymphocytes % (Manual) Atypical Lymphs % Monocytes % (Manual) PT INR APTT pO2 VBG pH VBG pCO2 VBG HCO3 VBG Total CO2 VBG O2 Sat (Calc) VBG Base Excess VBG Potassium Glucose Lactate FiO2 Sodium 141 Potassium 4.8 Chloride 111 H Carbon Dioxide 20 L Anion Gap 16 BUN 30 H Creatinine 3.0 H Est GFR ( Amer) 27 Est GFR (Non-Af Amer) 22 POC Glucose (mg/dL) Random Glucose 87 Calcium 9.0 Phosphorus Magnesium Iron TIBC % Saturation Total Bilirubin 0.3 AST 15 L D ALT 21 Alkaline Phosphatase 90 Lactate Dehydrogenase Total Creatine Kinase Troponin I Total Protein 6.8 Albumin 4.0 Globulin 2.9 Albumin/Globulin Ratio 1.4 Triglycerides Cholesterol LDL Cholesterol Direct HDL Cholesterol TSH 3rd Generation 2.09 Venous Blood Potassium Urine Color Urine Appearance Urine pH Ur Specific [place] Urine Protein Urine Glucose (UA) Urine Ketones Urine Blood Urine Nitrate Urine Bilirubin Urine Urobilinogen Ur Leukocyte Esterase Urine RBC Urine WBC Ur Epithelial Cells Calcium Oxalate Crystal Blood Type Blood Type Confirm Antibody Screen BBK History Checked 08/11/18 08/11/18 08/11/18 04:40 04:40 04:40 WBC 4.0 L RBC 4.75 Hgb 12.7 L Hct 39.1 L MCV 82.3 MCH 26.7 MCHC 32.5 RDW 13.5 Plt Count 250 MPV 10.4 Neut % (Auto) Lymph % (Auto) [place] % (Auto) Eos % (Auto) Baso % (Auto) Lymph # (Auto) [place] # (Auto) Eos # (Auto) Baso # (Auto) Absolute Neuts (auto) Neutrophils % (Manual) Band Neutrophils % Lymphocytes % (Manual) Atypical Lymphs % Monocytes % (Manual) PT INR APTT pO2 VBG pH VBG pCO2 VBG HCO3 VBG Total CO2 VBG O2 Sat (Calc) VBG Base Excess VBG Potassium Glucose Lactate FiO2 Sodium 143 Potassium 5.0 Chloride 113 H Carbon Dioxide 19 L Anion Gap 17 BUN 29 H Creatinine 2.6 H Est GFR ( Amer) 31 Est GFR (Non-Af Amer) 26 POC Glucose (mg/dL) Random Glucose 85 Calcium 9.0 Phosphorus 4.0 Magnesium 2.2 Iron TIBC % Saturation Total Bilirubin 0.3 AST 15 L ALT 25 Alkaline Phosphatase 92 Lactate Dehydrogenase Total Creatine Kinase Troponin I Total Protein 7.0 Albumin 4.1 Globulin 2.9 Albumin/Globulin Ratio 1.4 Triglycerides 158 Cholesterol 86 L LDL Cholesterol Direct 35 HDL Cholesterol 27 L TSH 3rd Generation Venous Blood Potassium Urine Color Urine Appearance Urine pH Ur Specific [place] Urine Protein Urine Glucose (UA) Urine Ketones Urine Blood Urine Nitrate Urine Bilirubin Urine Urobilinogen Ur Leukocyte Esterase Urine RBC Urine WBC Ur Epithelial Cells Calcium Oxalate Crystal Blood Type Blood Type Confirm O POSITIVE Antibody Screen BBK History Checked 08/11/18 04:40 WBC RBC Hgb Hct MCV MCH MCHC RDW Plt Count MPV Neut % (Auto) Lymph % (Auto) [place] % (Auto) Eos % (Auto) Baso % (Auto) Lymph # (Auto) [place] # (Auto) Eos # (Auto) Baso # (Auto) Absolute Neuts (auto) Neutrophils % (Manual) Band Neutrophils % Lymphocytes % (Manual) Atypical Lymphs % Monocytes % (Manual) PT 12.7 H INR 1.14 APTT pO2 VBG pH VBG pCO2 VBG HCO3 VBG Total CO2 VBG O2 Sat (Calc) VBG Base Excess VBG Potassium Glucose Lactate FiO2 Sodium Potassium Chloride Carbon Dioxide Anion Gap BUN Creatinine Est GFR ( Amer) Est GFR (Non-Af Amer) POC Glucose (mg/dL) Random Glucose Calcium Phosphorus Magnesium Iron TIBC % Saturation Total Bilirubin AST ALT Alkaline Phosphatase Lactate Dehydrogenase Total Creatine Kinase Troponin I Total Protein Albumin Globulin Albumin/Globulin Ratio Triglycerides Cholesterol LDL Cholesterol Direct HDL Cholesterol TSH 3rd Generation Venous Blood Potassium Urine Color Urine Appearance Urine pH Ur Specific [place] Urine Protein Urine Glucose (UA) Urine Ketones Urine Blood Urine Nitrate Urine Bilirubin Urine Urobilinogen Ur Leukocyte Esterase Urine RBC Urine WBC Ur Epithelial Cells Calcium Oxalate Crystal Blood Type Blood Type Confirm Antibody Screen BBK History Checked Assessment & Plan - Assessment and Plan (Free Text) Assessment: History of TBI with RUE weakness, expressive aphasia Hyperlipidemia HTN Diarrhea - colitis Acute renal insufficiency CT imaging reviewed by me showing right sided colon inflammation from cecum to transverse colon Plan: - Clear liquid diet as tolerated - Continue with IVF hydration, supportive care, monitor creatinine - Awaiting results of stool studies - Continue with antibiotic therapy - Patient would benefit from outpatient elective colonoscopy 4-6 weeks following resolution of acute colitis. Will continue to monitor patient clinical course.
[2018-08-11 12:10] LABS: TRANSFERRIN 181.92 mg/dL (206-381)
--- NOTE | 2018-08-11 12:10 | CP.CCUPN ---
<Richi Swain - Last Filed: 08/11/18 12:23> CCU Subjective - Physician Review Events Since Last Encounter (Free Text): 08/11/18 12:02 no acute events overnight Subjective (Free Text): 08/11/18 12:10 pt seen and examined this morning, no new complaints CCU Objective - Vital Signs / Intake & Output Vital Signs (Last 4 hours): Vital Signs Pulse BP 08/11/18 09:21 78 112/60 Intake and Output (Last 8hrs): Intake & Output 08/10/18 08/11/18 08/11/18 22:59 06:59 14:59 Intake Total 1225 Output Total 100 Balance 1125 Weight 169 lb 4.8 oz Intake: IV 1225 Left Antecubital 1225 Output: Urine 100 Urine, Voided 100 Other: Voiding Method Urinal - Physical Exam Physical Exam Limitations: Negative for: Altered Mental Status Head: Positive for: Atraumatic, Normocephalic Pupils: Positive for: PERRL Extroacular Muscles: Positive for: EOMI Mouth: Positive for: Moist Mucous Membranes Neck: Positive for: Normal Range of Motion Respiratory/Chest: Positive for: Clear to Auscultation, Accessory Muscle Use. Negative for: Good Air Exchange, Respiratory Distress Cardiovascular: Positive for: Regular Rate and Rhythm, Normal S1, S2 Abdomen: Positive for: Normal Bowel Sounds. Negative for: Tenderness, Distention Upper Extremity: Negative for: Normal Inspection Lower Extremity: Negative for: Normal Inspection Skin: Positive for: Warm, Dry Psychiatric: Positive for: Alert, Oriented x 3 - Medications Active Medications: Active Medications Generic Name Dose Route Start Last Admin Trade Name Duncanq PRN Reason Stop Dose Admin Atorvastatin Calcium 20 mg 08/11/18 17:00 Lipitor PO DIN HARIS Metronidazole 500 mg in 100 mls @ 100 mls/hr 08/10/18 22:00 08/11/18 05:09 Flagyl IVPB 100 mls/hr Q8 HARIS Administration Protocol Sodium Chloride 1,000 mls @ 125 mls/hr 08/10/18 20:15 08/11/18 05:08 Sodium Chloride 0.9% IV 125 mls/hr .Q8H HARIS Administration Levetiracetam 1,000 mg 08/11/18 10:00 08/11/18 09:21 Keppra PO 1,000 mg BID HARIS Administration Lisinopril 10 mg 08/11/18 10:00 08/11/18 09:21 Zestril PO 10 mg DAILY HARIS Administration Pantoprazole Sodium 40 mg 08/10/18 22:00 08/11/18 09:20 Protonix Inj IVP 40 mg Q12 HARIS Administration Vancomycin HCl 125 mg 08/10/18 22:00 08/11/18 09:21 Vancocin 25 Mg/Ml (Oral Use) PO 125 mg QID HARIS Administration Protocol - Patient Studies Lab Studies: Microbiology Studies 08/10/18 16:30 Urine Culture - Final Urine Random >100,000 CFU/ML. MULTIPLE SPECIES. SUGGEST REPEAT SPECIMEN. Lab Studies 08/11/18 08/11/18 08/11/18 Range/Units 04:40 04:40 04:40 WBC 4.0 L (4.5-11.0) 10^3/uL RBC 4.75 (3.5-6.1) 10^6/uL Hgb 12.7 L (14.0-18.0) g/dL Hct 39.1 L (42.0-52.0) % MCV 82.3 (80.0-105.0) fl MCH 26.7 (25.0-35.0) pg MCHC 32.5 (31.0-37.0) g/dl RDW 13.5 (11.5-14.5) % Plt Count 250 (120.0-450.0) 10^3/uL MPV 10.4 (7.0-11.0) fl Neut % (Auto) (50.0-68.0) % Lymph % (Auto) (22.0-35.0) % Bureau % (Auto) (1.0-6.0) % Eos % (Auto) (1.5-5.0) % Baso % (Auto) (0.0-3.0) % Lymph # (Auto) (1.2-3.4) Bureau # (Auto) (0.1-0.6) Eos # (Auto) (0.0-0.7) Baso # (Auto) (0.0-2.0) K/mm3 Absolute Neuts (auto) (1.4-6.5) Neutrophils % (Manual) (50.0-70.0) % Band Neutrophils % (0-2) % Lymphocytes % (Manual) (22.0-35.0) % Atypical Lymphs % (0.0-0.0) % Monocytes % (Manual) (1.0-6.0) % PT 12.7 H (9.4-12.5) SECONDS INR 1.14 APTT (26.9-38.3) Seconds pO2 (30-55) mm/Hg VBG pH (7.32-7.43) VBG pCO2 (40-60) VBG HCO3 (21-28) mmol/l VBG Total CO2 (22-28) mmol.L VBG O2 Sat (Calc) (40-65) % VBG Base Excess (0.0-2.0) mmol/L VBG Potassium (3.6-5.2) mmol/L Glucose (75-110) mg/dl Lactate (0.7-2.1) mmol/L FiO2 % Sodium (132-148) mmol/L Potassium (3.6-5.0) mmol/L Chloride (98-107) mmol/L Carbon Dioxide (21-33) mmol/L Anion Gap (10-20) BUN (7-21) mg/dL Creatinine (0.8-1.5) mg/dl Est GFR ( Amer) Est GFR (Non-Af Amer) POC Glucose (mg/dL) (65-110) mg/dL Random Glucose (70-110) mg/dL Calcium (8.4-10.5) mg/dL Phosphorus (2.5-4.5) mg/dL Magnesium (1.7-2.2) mg/dL Iron (45-180) ug/dL TIBC (261-462) ug/dL % Saturation (20-55) % Total Bilirubin (0.2-1.3) mg/dL AST (17-59) U/L ALT (7-56) U/L Alkaline Phosphatase (38-126) U/L Lactate Dehydrogenase (333-699) U/L Total Creatine Kinase (35-230) U/L Troponin I ng/mL Total Protein (5.8-8.3) g/dL Albumin (3.0-4.8) g/dL Globulin gm/dL Albumin/Globulin Ratio (1.1-1.8) Triglycerides (35-160) mg/dL Cholesterol (130-200) mg/dL LDL Cholesterol Direct (0-129) mg/dL HDL Cholesterol (29-60) mg/dL TSH 3rd Generation (0.46-4.68) mIU/mL Venous Blood Potassium (3.6-5.2) mmol/L Urine Color (YELLOW) Urine Appearance (CLEAR) Urine pH (4.7-8.0) Ur Specific Malcolm (1.005-1.035) Urine Protein (<30 mg/dL) mg/dL Urine Glucose (UA) (NEGATIVE) mg/dL Urine Ketones (NEGATIVE) mg/dL Urine Blood (NEGATIVE) Urine Nitrate (NEGATIVE) Urine Bilirubin (NEGATIVE) Urine Urobilinogen (<1 E.U./dL) E.U./dL Ur Leukocyte Esterase (NEGATIVE) Toni/uL Urine RBC (0-2) /hpf Urine WBC (0-6) /hpf Ur Epithelial Cells (0-5) /hpf Calcium Oxalate Crystal (NONE) /hpf Blood Type Blood Type Confirm O POSITIVE Antibody Screen BBK History Checked 08/11/18 08/11/18 08/10/18 Range/Units 04:40 04:40 23:45 WBC (4.5-11.0) 10^3/uL RBC (3.5-6.1) 10^6/uL Hgb (14.0-18.0) g/dL Hct (42.0-52.0) % MCV (80.0-105.0) fl MCH (25.0-35.0) pg MCHC (31.0-37.0) g/dl RDW (11.5-14.5) % Plt Count (120.0-450.0) 10^3/uL MPV (7.0-11.0) fl Neut % (Auto) (50.0-68.0) % Lymph % (Auto) (22.0-35.0) % Bureau % (Auto) (1.0-6.0) % Eos % (Auto) (1.5-5.0) % Baso % (Auto) (0.0-3.0) % Lymph # (Auto) (1.2-3.4) Bureau # (Auto) (0.1-0.6) Eos # (Auto) (0.0-0.7) Baso # (Auto) (0.0-2.0) K/mm3 Absolute Neuts (auto) (1.4-6.5) Neutrophils % (Manual) (50.0-70.0) % Band Neutrophils % (0-2) % Lymphocytes % (Manual) (22.0-35.0) % Atypical Lymphs % (0.0-0.0) % Monocytes % (Manual) (1.0-6.0) % PT (9.4-12.5) SECONDS INR APTT (26.9-38.3) Seconds pO2 (30-55) mm/Hg VBG pH (7.32-7.43) VBG pCO2 (40-60) VBG HCO3 (21-28) mmol/l VBG Total CO2 (22-28) mmol.L VBG O2 Sat (Calc) (40-65) % VBG Base Excess (0.0-2.0) mmol/L VBG Potassium (3.6-5.2) mmol/L Glucose (75-110) mg/dl Lactate (0.7-2.1) mmol/L FiO2 % Sodium 143 141 (132-148) mmol/L Potassium 5.0 4.8 (3.6-5.0) mmol/L Chloride 113 H 111 H (98-107) mmol/L Carbon Dioxide 19 L 20 L (21-33) mmol/L Anion Gap 17 16 (10-20) BUN 29 H 30 H (7-21) mg/dL Creatinine 2.6 H 3.0 H (0.8-1.5) mg/dl Est GFR ( Amer) 31 27 Est GFR (Non-Af Amer) 26 22 POC Glucose (mg/dL) (65-110) mg/dL Random Glucose 85 87 (70-110) mg/dL Calcium 9.0 9.0 (8.4-10.5) mg/dL Phosphorus 4.0 (2.5-4.5) mg/dL Magnesium 2.2 (1.7-2.2) mg/dL Iron (45-180) ug/dL TIBC (261-462) ug/dL % Saturation (20-55) % Total Bilirubin 0.3 0.3 (0.2-1.3) mg/dL AST 15 L 15 L D (17-59) U/L ALT 25 21 (7-56) U/L Alkaline Phosphatase 92 90 (38-126) U/L Lactate Dehydrogenase (333-699) U/L Total Creatine Kinase (35-230) U/L Troponin I ng/mL Total Protein 7.0 6.8 (5.8-8.3) g/dL Albumin 4.1 4.0 (3.0-4.8) g/dL Globulin 2.9 2.9 gm/dL Albumin/Globulin Ratio 1.4 1.4 (1.1-1.8) Triglycerides 158 (35-160) mg/dL Cholesterol 86 L (130-200) mg/dL LDL Cholesterol Direct 35 (0-129) mg/dL HDL Cholesterol 27 L (29-60) mg/dL TSH 3rd Generation 2.09 (0.46-4.68) mIU/mL Venous Blood Potassium (3.6-5.2) mmol/L Urine Color (YELLOW) Urine Appearance (CLEAR) Urine pH (4.7-8.0) Ur Specific Malcolm (1.005-1.035) Urine Protein (<30 mg/dL) mg/dL Urine Glucose (UA) (NEGATIVE) mg/dL Urine Ketones (NEGATIVE) mg/dL Urine Blood (NEGATIVE) Urine Nitrate (NEGATIVE) Urine Bilirubin (NEGATIVE) Urine Urobilinogen (<1 E.U./dL) E.U./dL Ur Leukocyte Esterase (NEGATIVE) Toni/uL Urine RBC (0-2) /hpf Urine WBC (0-6) /hpf Ur Epithelial Cells (0-5) /hpf Calcium Oxalate Crystal (NONE) /hpf Blood Type Blood Type Confirm Antibody Screen BBK History Checked 08/10/18 08/10/18 08/10/18 Range/Units 23:45 23:45 22:00 WBC 4.2 L D (4.5-11.0) 10^3/uL RBC 4.69 (3.5-6.1) 10^6/uL Hgb 12.4 L D (14.0-18.0) g/dL Hct 38.4 L (42.0-52.0) % MCV 81.9 (80.0-105.0) fl MCH 26.4 (25.0-35.0) pg MCHC 32.3 (31.0-37.0) g/dl RDW 13.5 (11.5-14.5) % Plt Count 260 (120.0-450.0) 10^3/uL MPV 10.0 (7.0-11.0) fl Neut % (Auto) 36.3 L (50.0-68.0) % Lymph % (Auto) 30.5 (22.0-35.0) % Bureau % (Auto) 32.5 H (1.0-6.0) % Eos % (Auto) 0.2 L (1.5-5.0) % Baso % (Auto) 0.5 (0.0-3.0) % Lymph # (Auto) 1.3 (1.2-3.4) Bureau # (Auto) 1.4 H (0.1-0.6) Eos # (Auto) 0.0 (0.0-0.7) Baso # (Auto) 0.02 (0.0-2.0) K/mm3 Absolute Neuts (auto) 1.51 (1.4-6.5) Neutrophils % (Manual) (50.0-70.0) % Band Neutrophils % (0-2) % Lymphocytes % (Manual) (22.0-35.0) % Atypical Lymphs % (0.0-0.0) % Monocytes % (Manual) (1.0-6.0) % PT (9.4-12.5) SECONDS INR APTT (26.9-38.3) Seconds pO2 (30-55) mm/Hg VBG pH (7.32-7.43) VBG pCO2 (40-60) VBG HCO3 (21-28) mmol/l VBG Total CO2 (22-28) mmol.L VBG O2 Sat (Calc) (40-65) % VBG Base Excess (0.0-2.0) mmol/L VBG Potassium (3.6-5.2) mmol/L Glucose (75-110) mg/dl Lactate (0.7-2.1) mmol/L FiO2 % Sodium (132-148) mmol/L Potassium (3.6-5.0) mmol/L Chloride (98-107) mmol/L Carbon Dioxide (21-33) mmol/L Anion Gap (10-20) BUN (7-21) mg/dL Creatinine (0.8-1.5) mg/dl Est GFR ( Amer) Est GFR (Non-Af Amer) POC Glucose (mg/dL) (65-110) mg/dL Random Glucose (70-110) mg/dL Calcium (8.4-10.5) mg/dL Phosphorus (2.5-4.5) mg/dL Magnesium (1.7-2.2) mg/dL Iron 65 (45-180) ug/dL TIBC 313 (261-462) ug/dL % Saturation 21 (20-55) % Total Bilirubin (0.2-1.3) mg/dL AST (17-59) U/L ALT (7-56) U/L Alkaline Phosphatase (38-126) U/L Lactate Dehydrogenase (333-699) U/L Total Creatine Kinase (35-230) U/L Troponin I ng/mL Total Protein (5.8-8.3) g/dL Albumin (3.0-4.8) g/dL Globulin gm/dL Albumin/Globulin Ratio (1.1-1.8) Triglycerides (35-160) mg/dL Cholesterol (130-200) mg/dL LDL Cholesterol Direct (0-129) mg/dL HDL Cholesterol (29-60) mg/dL TSH 3rd Generation (0.46-4.68) mIU/mL Venous Blood Potassium (3.6-5.2) mmol/L Urine Color (YELLOW) Urine Appearance (CLEAR) Urine pH (4.7-8.0) Ur Specific Malcolm (1.005-1.035) Urine Protein (<30 mg/dL) mg/dL Urine Glucose (UA) (NEGATIVE) mg/dL Urine Ketones (NEGATIVE) mg/dL Urine Blood (NEGATIVE) Urine Nitrate (NEGATIVE) Urine Bilirubin (NEGATIVE) Urine Urobilinogen (<1 E.U./dL) E.U./dL Ur Leukocyte Esterase (NEGATIVE) Toni/uL Urine RBC (0-2) /hpf Urine WBC (0-6) /hpf Ur Epithelial Cells (0-5) /hpf Calcium Oxalate Crystal (NONE) /hpf Blood Type O POSITIVE Blood Type Confirm Antibody Screen Negative BBK History Checked No verified bt 08/10/18 08/10/18 08/10/18 Range/Units 16:41 16:30 12:55 WBC (4.5-11.0) 10^3/uL RBC (3.5-6.1) 10^6/uL Hgb (14.0-18.0) g/dL Hct (42.0-52.0) % MCV (80.0-105.0) fl MCH (25.0-35.0) pg MCHC (31.0-37.0) g/dl RDW (11.5-14.5) % Plt Count (120.0-450.0) 10^3/uL MPV (7.0-11.0) fl Neut % (Auto) (50.0-68.0) % Lymph % (Auto) (22.0-35.0) % Bureau % (Auto) (1.0-6.0) % Eos % (Auto) (1.5-5.0) % Baso % (Auto) (0.0-3.0) % Lymph # (Auto) (1.2-3.4) Bureau # (Auto) (0.1-0.6) Eos # (Auto) (0.0-0.7) Baso # (Auto) (0.0-2.0) K/mm3 Absolute Neuts (auto) (1.4-6.5) Neutrophils % (Manual) (50.0-70.0) % Band Neutrophils % (0-2) % Lymphocytes % (Manual) (22.0-35.0) % Atypical Lymphs % (0.0-0.0) % Monocytes % (Manual) (1.0-6.0) % PT (9.4-12.5) SECONDS INR APTT (26.9-38.3) Seconds pO2 27 L (30-55) mm/Hg VBG pH 7.27 L (7.32-7.43) VBG pCO2 48.0 (40-60) VBG HCO3 22.0 (21-28) mmol/l VBG Total CO2 23.5 (22-28) mmol.L VBG O2 Sat (Calc) 47.9 (40-65) % VBG Base Excess -5.1 L (0.0-2.0) mmol/L VBG Potassium 5.1 (3.6-5.2) mmol/L Glucose 95 (75-110) mg/dl Lactate 0.9 (0.7-2.1) mmol/L FiO2 21.0 % Sodium 137.0 (132-148) mmol/L Potassium (3.6-5.0) mmol/L Chloride 108.0 H (98-107) mmol/L Carbon Dioxide (21-33) mmol/L Anion Gap (10-20) BUN (7-21) mg/dL Creatinine (0.8-1.5) mg/dl Est GFR ( Amer) Est GFR (Non-Af Amer) POC Glucose (mg/dL) 121 H (65-110) mg/dL Random Glucose (70-110) mg/dL Calcium (8.4-10.5) mg/dL Phosphorus (2.5-4.5) mg/dL Magnesium (1.7-2.2) mg/dL Iron (45-180) ug/dL TIBC (261-462) ug/dL % Saturation (20-55) % Total Bilirubin (0.2-1.3) mg/dL AST (17-59) U/L ALT (7-56) U/L Alkaline Phosphatase (38-126) U/L Lactate Dehydrogenase (333-699) U/L Total Creatine Kinase (35-230) U/L Troponin I ng/mL Total Protein (5.8-8.3) g/dL Albumin (3.0-4.8) g/dL Globulin gm/dL Albumin/Globulin Ratio (1.1-1.8) Triglycerides (35-160) mg/dL Cholesterol (130-200) mg/dL LDL Cholesterol Direct (0-129) mg/dL HDL Cholesterol (29-60) mg/dL TSH 3rd Generation (0.46-4.68) mIU/mL Venous Blood Potassium 5.1 (3.6-5.2) mmol/L Urine Color Yellow (YELLOW) Urine Appearance Slight-cloudy (CLEAR) Urine pH 5.5 (4.7-8.0) Ur Specific Malcolm >= 1.030 (1.005-1.035) Urine Protein 30 H (<30 mg/dL) mg/dL Urine Glucose (UA) Negative (NEGATIVE) mg/dL Urine Ketones Trace H (NEGATIVE) mg/dL Urine Blood Moderate H (NEGATIVE) Urine Nitrate Negative (NEGATIVE) Urine Bilirubin Small H (NEGATIVE) Urine Urobilinogen 0.2 (<1 E.U./dL) E.U./dL Ur Leukocyte Esterase Negative (NEGATIVE) Toni/uL Urine RBC 5 - 10 H (0-2) /hpf Urine WBC None (0-6) /hpf Ur Epithelial Cells None (0-5) /hpf Calcium Oxalate Crystal Few (NONE) /hpf Blood Type Blood Type Confirm Antibody Screen BBK History Checked 08/10/18 08/10/18 08/10/18 Range/Units 12:45 12:45 12:45 WBC 5.9 (4.5-11.0) 10^3/uL RBC 5.34 (3.5-6.1) 10^6/uL Hgb 14.4 (14.0-18.0) g/dL Hct 43.7 (42.0-52.0) % MCV 81.8 (80.0-105.0) fl MCH 27.0 (25.0-35.0) pg MCHC 33.0 (31.0-37.0) g/dl RDW 13.4 (11.5-14.5) % Plt Count 344 (120.0-450.0) 10^3/uL MPV 10.4 (7.0-11.0) fl Neut % (Auto) 57.8 (50.0-68.0) % Lymph % (Auto) 18.8 L (22.0-35.0) % Bureau % (Auto) 23.2 H (1.0-6.0) % Eos % (Auto) 0.0 L (1.5-5.0) % Baso % (Auto) 0.2 (0.0-3.0) % Lymph # (Auto) 1.1 L (1.2-3.4) Bureau # (Auto) 1.4 H (0.1-0.6) Eos # (Auto) 0.0 (0.0-0.7) Baso # (Auto) 0.01 (0.0-2.0) K/mm3 Absolute Neuts (auto) 3.39 (1.4-6.5) Neutrophils % (Manual) 54 (50.0-70.0) % Band Neutrophils % 5 H (0-2) % Lymphocytes % (Manual) 20 L (22.0-35.0) % Atypical Lymphs % 1 H (0.0-0.0) % Monocytes % (Manual) 18 H (1.0-6.0) % PT 12.0 (9.4-12.5) SECONDS INR 1.06 APTT 34.6 (26.9-38.3) Seconds pO2 (30-55) mm/Hg VBG pH (7.32-7.43) VBG pCO2 (40-60) VBG HCO3 (21-28) mmol/l VBG Total CO2 (22-28) mmol.L VBG O2 Sat (Calc) (40-65) % VBG Base Excess (0.0-2.0) mmol/L VBG Potassium (3.6-5.2) mmol/L Glucose (75-110) mg/dl Lactate (0.7-2.1) mmol/L FiO2 % Sodium 143 (132-148) mmol/L Potassium 4.7 (3.6-5.0) mmol/L Chloride 105 (98-107) mmol/L Carbon Dioxide 21 (21-33) mmol/L Anion Gap 21 H (10-20) BUN 33 H (7-21) mg/dL Creatinine 4.0 H (0.8-1.5) mg/dl Est GFR ( Amer) 19 Est GFR (Non-Af Amer) 16 POC Glucose (mg/dL) (65-110) mg/dL Random Glucose 98 (70-110) mg/dL Calcium 9.6 (8.4-10.5) mg/dL Phosphorus (2.5-4.5) mg/dL Magnesium 2.3 H (1.7-2.2) mg/dL Iron (45-180) ug/dL TIBC (261-462) ug/dL % Saturation (20-55) % Total Bilirubin 0.3 (0.2-1.3) mg/dL AST 25 (17-59) U/L ALT 29 (7-56) U/L Alkaline Phosphatase 105 (38-126) U/L Lactate Dehydrogenase 372 (333-699) U/L Total Creatine Kinase 61 (35-230) U/L Troponin I < 0.01 ng/mL Total Protein 8.5 H (5.8-8.3) g/dL Albumin 5.0 H (3.0-4.8) g/dL Globulin 3.5 gm/dL Albumin/Globulin Ratio 1.4 (1.1-1.8) Triglycerides (35-160) mg/dL Cholesterol (130-200) mg/dL LDL Cholesterol Direct (0-129) mg/dL HDL Cholesterol (29-60) mg/dL TSH 3rd Generation (0.46-4.68) mIU/mL Venous Blood Potassium (3.6-5.2) mmol/L Urine Color (YELLOW) Urine Appearance (CLEAR) Urine pH (4.7-8.0) Ur Specific Malcolm (1.005-1.035) Urine Protein (<30 mg/dL) mg/dL Urine Glucose (UA) (NEGATIVE) mg/dL Urine Ketones (NEGATIVE) mg/dL Urine Blood (NEGATIVE) Urine Nitrate (NEGATIVE) Urine Bilirubin (NEGATIVE) Urine Urobilinogen (<1 E.U./dL) E.U./dL Ur Leukocyte Esterase (NEGATIVE) Toni/uL Urine RBC (0-2) /hpf Urine WBC (0-6) /hpf Ur Epithelial Cells (0-5) /hpf Calcium Oxalate Crystal (NONE) /hpf Blood Type Blood Type Confirm Antibody Screen BBK History Checked 08/10/18 Range/Units 12:14 WBC (4.5-11.0) 10^3/uL RBC (3.5-6.1) 10^6/uL Hgb (14.0-18.0) g/dL Hct (42.0-52.0) % MCV (80.0-105.0) fl MCH (25.0-35.0) pg MCHC (31.0-37.0) g/dl RDW (11.5-14.5) % Plt Count (120.0-450.0) 10^3/uL MPV (7.0-11.0) fl Neut % (Auto) (50.0-68.0) % Lymph % (Auto) (22.0-35.0) % Bureau % (Auto) (1.0-6.0) % Eos % (Auto) (1.5-5.0) % Baso % (Auto) (0.0-3.0) % Lymph # (Auto) (1.2-3.4) Bureau # (Auto) (0.1-0.6) Eos # (Auto) (0.0-0.7) Baso # (Auto) (0.0-2.0) K/mm3 Absolute Neuts (auto) (1.4-6.5) Neutrophils % (Manual) (50.0-70.0) % Band Neutrophils % (0-2) % Lymphocytes % (Manual) (22.0-35.0) % Atypical Lymphs % (0.0-0.0) % Monocytes % (Manual) (1.0-6.0) % PT (9.4-12.5) SECONDS INR APTT (26.9-38.3) Seconds pO2 (30-55) mm/Hg VBG pH (7.32-7.43) VBG pCO2 (40-60) VBG HCO3 (21-28) mmol/l VBG Total CO2 (22-28) mmol.L VBG O2 Sat (Calc) (40-65) % VBG Base Excess (0.0-2.0) mmol/L VBG Potassium (3.6-5.2) mmol/L Glucose (75-110) mg/dl Lactate (0.7-2.1) mmol/L FiO2 % Sodium (132-148) mmol/L Potassium (3.6-5.0) mmol/L Chloride (98-107) mmol/L Carbon Dioxide (21-33) mmol/L Anion Gap (10-20) BUN (7-21) mg/dL Creatinine (0.8-1.5) mg/dl Est GFR ( Amer) Est GFR (Non-Af Amer) POC Glucose (mg/dL) 116 H (65-110) mg/dL Random Glucose (70-110) mg/dL Calcium (8.4-10.5) mg/dL Phosphorus (2.5-4.5) mg/dL Magnesium (1.7-2.2) mg/dL Iron (45-180) ug/dL TIBC (261-462) ug/dL % Saturation (20-55) % Total Bilirubin (0.2-1.3) mg/dL AST (17-59) U/L ALT (7-56) U/L Alkaline Phosphatase (38-126) U/L Lactate Dehydrogenase (333-699) U/L Total Creatine Kinase (35-230) U/L Troponin I ng/mL Total Protein (5.8-8.3) g/dL Albumin (3.0-4.8) g/dL Globulin gm/dL Albumin/Globulin Ratio (1.1-1.8) Triglycerides (35-160) mg/dL Cholesterol (130-200) mg/dL LDL Cholesterol Direct (0-129) mg/dL HDL Cholesterol (29-60) mg/dL TSH 3rd Generation (0.46-4.68) mIU/mL Venous Blood Potassium (3.6-5.2) mmol/L Urine Color (YELLOW) Urine Appearance (CLEAR) Urine pH (4.7-8.0) Ur Specific Malcolm (1.005-1.035) Urine Protein (<30 mg/dL) mg/dL Urine Glucose (UA) (NEGATIVE) mg/dL Urine Ketones (NEGATIVE) mg/dL Urine Blood (NEGATIVE) Urine Nitrate (NEGATIVE) Urine Bilirubin (NEGATIVE) Urine Urobilinogen (<1 E.U./dL) E.U./dL Ur Leukocyte Esterase (NEGATIVE) Toni/uL Urine RBC (0-2) /hpf Urine WBC (0-6) /hpf Ur Epithelial Cells (0-5) /hpf Calcium Oxalate Crystal (NONE) /hpf Blood Type Blood Type Confirm Antibody Screen BBK History Checked Laboratory Results - last 24 hr 08/10/18 08/10/18 08/10/18 12:14 12:45 12:45 WBC 5.9 RBC 5.34 Hgb 14.4 Hct 43.7 MCV 81.8 MCH 27.0 MCHC 33.0 RDW 13.4 Plt Count 344 MPV 10.4 Neut % (Auto) 57.8 Lymph % (Auto) 18.8 L Bureau % (Auto) 23.2 H Eos % (Auto) 0.0 L Baso % (Auto) 0.2 Lymph # (Auto) 1.1 L Bureau # (Auto) 1.4 H Eos # (Auto) 0.0 Baso # (Auto) 0.01 Absolute Neuts (auto) 3.39 Neutrophils % (Manual) 54 Band Neutrophils % 5 H Lymphocytes % (Manual) 20 L Atypical Lymphs % 1 H Monocytes % (Manual) 18 H PT INR APTT pO2 VBG pH VBG pCO2 VBG HCO3 VBG Total CO2 VBG O2 Sat (Calc) VBG Base Excess VBG Potassium Glucose Lactate FiO2 Sodium 143 Potassium 4.7 Chloride 105 Carbon Dioxide 21 Anion Gap 21 H BUN 33 H Creatinine 4.0 H Est GFR ( Amer) 19 Est GFR (Non-Af Amer) 16 POC Glucose (mg/dL) 116 H Random Glucose 98 Calcium 9.6 Phosphorus Magnesium 2.3 H Iron TIBC % Saturation Total Bilirubin 0.3 AST 25 ALT 29 Alkaline Phosphatase 105 Lactate Dehydrogenase 372 Total Creatine Kinase 61 Troponin I < 0.01 Total Protein 8.5 H Albumin 5.0 H Globulin 3.5 Albumin/Globulin Ratio 1.4 Triglycerides Cholesterol LDL Cholesterol Direct HDL Cholesterol TSH 3rd Generation Venous Blood Potassium Urine Color Urine Appearance Urine pH Ur Specific Malcolm Urine Protein Urine Glucose (UA) Urine Ketones Urine Blood Urine Nitrate Urine Bilirubin Urine Urobilinogen Ur Leukocyte Esterase Urine RBC Urine WBC Ur Epithelial Cells Calcium Oxalate Crystal Blood Type Blood Type Confirm Antibody Screen BBK History Checked 08/10/18 08/10/18 08/10/18 12:45 12:55 16:30 WBC RBC Hgb Hct MCV MCH MCHC RDW Plt Count MPV Neut % (Auto) Lymph % (Auto) Bureau % (Auto) Eos % (Auto) Baso % (Auto) Lymph # (Auto) Bureau # (Auto) Eos # (Auto) Baso # (Auto) Absolute Neuts (auto) Neutrophils % (Manual) Band Neutrophils % Lymphocytes % (Manual) Atypical Lymphs % Monocytes % (Manual) PT 12.0 INR 1.06 APTT 34.6 pO2 27 L VBG pH 7.27 L VBG pCO2 48.0 VBG HCO3 22.0 VBG Total CO2 23.5 VBG O2 Sat (Calc) 47.9 VBG Base Excess -5.1 L VBG Potassium 5.1 Glucose 95 Lactate 0.9 FiO2 21.0 Sodium 137.0 Potassium Chloride 108.0 H Carbon Dioxide Anion Gap BUN Creatinine Est GFR ( Amer) Est GFR (Non-Af Amer) POC Glucose (mg/dL) Random Glucose Calcium Phosphorus Magnesium Iron TIBC % Saturation Total Bilirubin AST ALT Alkaline Phosphatase Lactate Dehydrogenase Total Creatine Kinase Troponin I Total Protein Albumin Globulin Albumin/Globulin Ratio Triglycerides Cholesterol LDL Cholesterol Direct HDL Cholesterol TSH 3rd Generation Venous Blood Potassium 5.1 Urine Color Yellow Urine Appearance Slight-cloudy Urine pH 5.5 Ur Specific Malcolm >= 1.030 Urine Protein 30 H Urine Glucose (UA) Negative Urine Ketones Trace H Urine Blood Moderate H Urine Nitrate Negative Urine Bilirubin Small H Urine Urobilinogen 0.2 Ur Leukocyte Esterase Negative Urine RBC 5 - 10 H Urine WBC None Ur Epithelial Cells None Calcium Oxalate Crystal Few Blood Type Blood Type Confirm Antibody Screen BBK History Checked 08/10/18 08/10/18 08/10/18 16:41 22:00 23:45 WBC RBC Hgb Hct MCV MCH MCHC RDW Plt Count MPV Neut % (Auto) Lymph % (Auto) Bureau % (Auto) Eos % (Auto) Baso % (Auto) Lymph # (Auto) Bureau # (Auto) Eos # (Auto) Baso # (Auto) Absolute Neuts (auto) Neutrophils % (Manual) Band Neutrophils % Lymphocytes % (Manual) Atypical Lymphs % Monocytes % (Manual) PT INR APTT pO2 VBG pH VBG pCO2 VBG HCO3 VBG Total CO2 VBG O2 Sat (Calc) VBG Base Excess VBG Potassium Glucose Lactate FiO2 Sodium Potassium Chloride Carbon Dioxide Anion Gap BUN Creatinine Est GFR ( Amer) Est GFR (Non-Af Amer) POC Glucose (mg/dL) 121 H Random Glucose Calcium Phosphorus Magnesium Iron 65 TIBC 313 % Saturation 21 Total Bilirubin AST ALT Alkaline Phosphatase Lactate Dehydrogenase Total Creatine Kinase Troponin I Total Protein Albumin Globulin Albumin/Globulin Ratio Triglycerides Cholesterol LDL Cholesterol Direct HDL Cholesterol TSH 3rd Generation Venous Blood Potassium Urine Color Urine Appearance Urine pH Ur Specific Malcolm Urine Protein Urine Glucose (UA) Urine Ketones Urine Blood Urine Nitrate Urine Bilirubin Urine Urobilinogen Ur Leukocyte Esterase Urine RBC Urine WBC Ur Epithelial Cells Calcium Oxalate Crystal Blood Type O POSITIVE Blood Type Confirm Antibody Screen Negative BBK History Checked No verified bt 08/10/18 08/10/18 08/11/18 23:45 23:45 04:40 WBC 4.2 L D RBC 4.69 Hgb 12.4 L D Hct 38.4 L MCV 81.9 MCH 26.4 MCHC 32.3 RDW 13.5 Plt Count 260 MPV 10.0 Neut % (Auto) 36.3 L Lymph % (Auto) 30.5 Bureau % (Auto) 32.5 H Eos % (Auto) 0.2 L Baso % (Auto) 0.5 Lymph # (Auto) 1.3 Bureau # (Auto) 1.4 H Eos # (Auto) 0.0 Baso # (Auto) 0.02 Absolute Neuts (auto) 1.51 Neutrophils % (Manual) Band Neutrophils % Lymphocytes % (Manual) Atypical Lymphs % Monocytes % (Manual) PT INR APTT pO2 VBG pH VBG pCO2 VBG HCO3 VBG Total CO2 VBG O2 Sat (Calc) VBG Base Excess VBG Potassium Glucose Lactate FiO2 Sodium 141 Potassium 4.8 Chloride 111 H Carbon Dioxide 20 L Anion Gap 16 BUN 30 H Creatinine 3.0 H Est GFR ( Amer) 27 Est GFR (Non-Af Amer) 22 POC Glucose (mg/dL) Random Glucose 87 Calcium 9.0 Phosphorus Magnesium Iron TIBC % Saturation Total Bilirubin 0.3 AST 15 L D ALT 21 Alkaline Phosphatase 90 Lactate Dehydrogenase Total Creatine Kinase Troponin I Total Protein 6.8 Albumin 4.0 Globulin 2.9 Albumin/Globulin Ratio 1.4 Triglycerides Cholesterol LDL Cholesterol Direct HDL Cholesterol TSH 3rd Generation 2.09 Venous Blood Potassium Urine Color Urine Appearance Urine pH Ur Specific Malcolm Urine Protein Urine Glucose (UA) Urine Ketones Urine Blood Urine Nitrate Urine Bilirubin Urine Urobilinogen Ur Leukocyte Esterase Urine RBC Urine WBC Ur Epithelial Cells Calcium Oxalate Crystal Blood Type Blood Type Confirm Antibody Screen BBK History Checked 08/11/18 08/11/18 08/11/18 04:40 04:40 04:40 WBC 4.0 L RBC 4.75 Hgb 12.7 L Hct 39.1 L MCV 82.3 MCH 26.7 MCHC 32.5 RDW 13.5 Plt Count 250 MPV 10.4 Neut % (Auto) Lymph % (Auto) Bureau % (Auto) Eos % (Auto) Baso % (Auto) Lymph # (Auto) Bureau # (Auto) Eos # (Auto) Baso # (Auto) Absolute Neuts (auto) Neutrophils % (Manual) Band Neutrophils % Lymphocytes % (Manual) Atypical Lymphs % Monocytes % (Manual) PT INR APTT pO2 VBG pH VBG pCO2 VBG HCO3 VBG Total CO2 VBG O2 Sat (Calc) VBG Base Excess VBG Potassium Glucose Lactate FiO2 Sodium 143 Potassium 5.0 Chloride 113 H Carbon Dioxide 19 L Anion Gap 17 BUN 29 H Creatinine 2.6 H Est GFR ( Amer) 31 Est GFR (Non-Af Amer) 26 POC Glucose (mg/dL) Random Glucose 85 Calcium 9.0 Phosphorus 4.0 Magnesium 2.2 Iron TIBC % Saturation Total Bilirubin 0.3 AST 15 L ALT 25 Alkaline Phosphatase 92 Lactate Dehydrogenase Total Creatine Kinase Troponin I Total Protein 7.0 Albumin 4.1 Globulin 2.9 Albumin/Globulin Ratio 1.4 Triglycerides 158 Cholesterol 86 L LDL Cholesterol Direct 35 HDL Cholesterol 27 L TSH 3rd Generation Venous Blood Potassium Urine Color Urine Appearance Urine pH Ur Specific Malcolm Urine Protein Urine Glucose (UA) Urine Ketones Urine Blood Urine Nitrate Urine Bilirubin Urine Urobilinogen Ur Leukocyte Esterase Urine RBC Urine WBC Ur Epithelial Cells Calcium Oxalate Crystal Blood Type Blood Type Confirm O POSITIVE Antibody Screen BBK History Checked 08/11/18 04:40 WBC RBC Hgb Hct MCV MCH MCHC RDW Plt Count MPV Neut % (Auto) Lymph % (Auto) Bureau % (Auto) Eos % (Auto) Baso % (Auto) Lymph # (Auto) Bureau # (Auto) Eos # (Auto) Baso # (Auto) Absolute Neuts (auto) Neutrophils % (Manual) Band Neutrophils % Lymphocytes % (Manual) Atypical Lymphs % Monocytes % (Manual) PT 12.7 H INR 1.14 APTT pO2 VBG pH VBG pCO2 VBG HCO3 VBG Total CO2 VBG O2 Sat (Calc) VBG Base Excess VBG Potassium Glucose Lactate FiO2 Sodium Potassium Chloride Carbon Dioxide Anion Gap BUN Creatinine Est GFR ( Amer) Est GFR (Non-Af Amer) POC Glucose (mg/dL) Random Glucose Calcium Phosphorus Magnesium Iron TIBC % Saturation Total Bilirubin AST ALT Alkaline Phosphatase Lactate Dehydrogenase Total Creatine Kinase Troponin I Total Protein Albumin Globulin Albumin/Globulin Ratio Triglycerides Cholesterol LDL Cholesterol Direct HDL Cholesterol TSH 3rd Generation Venous Blood Potassium Urine Color Urine Appearance Urine pH Ur Specific Malcolm Urine Protein Urine Glucose (UA) Urine Ketones Urine Blood Urine Nitrate Urine Bilirubin Urine Urobilinogen Ur Leukocyte Esterase Urine RBC Urine WBC Ur Epithelial Cells Calcium Oxalate Crystal Blood Type Blood Type Confirm Antibody Screen BBK History Checked Radiology Impressions: Radiology Impressions Chest X-Ray 08/10/18 12:34 IMPRESSION: No active disease. Head CT 08/10/18 12:34 IMPRESSION: Status post large left craniectomy with craniotomy. There is mass effect with midline shift by 11 mm towards the right side but without evidence of downward herniation. No intracranial mass or hemorrhage. Please note that there is no prior examination available for comparison at this time. Abdomen/Pelvis CT 08/10/18 15:55 IMPRESSION: Mural thickening of the right: Including hepatic flexure and proximal transverse colon. Consistent with nonspecific colitis. No additional abnormality. 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 CT shows diffuse colitis, likely indicating c.diff colitis given history of extensive recent antibiotic use. Plan: Neuro - Keppra - Head CT shows s/p left craniotomy, mass effect 11mm shift - Neuro consulted, Dr Boston Cardio - holding home BP meds - maintain MAP > 65 Pulm - O2 PRN - maintain SaO2> 90 GI - Protonix - c.diff labs ordered; - Vanco PO and Flagyl - GI consulted, recs appreciated - CT abd/pelvis reviewed; showing diffuse colitis Renal - TONO noted - avoid nephrotoxins Heme/ Onc - monitor H/H ID - will start empirically on PO vanc and Flagyl - Blood, urine and c.diff cultures sent - maintain normothermia Endo - maintain euglycemia Dispo: transfer pt to tele Pt seen, examined, assessment and plan discussed with Dr Cortez Swain PGY1 - Date & Time Date: 08/11/18 Time: 12:12 <Jose Roberto Toro - Last Filed: 08/11/18 16:59> CCU Objective - Vital Signs / Intake & Output Vital Signs (Last 4 hours): Vital Signs Temp Pulse Resp BP Pulse Ox 08/11/18 16:20 70 14 100 08/11/18 16:10 72 15 100 08/11/18 16:00 97.2 F L 71 15 101/58 L 100 08/11/18 15:50 71 14 100 08/11/18 15:40 82 13 100 08/11/18 15:30 74 15 100 08/11/18 15:20 73 15 100 08/11/18 15:10 72 14 100 08/11/18 15:00 79 17 103/56 L 100 08/11/18 14:50 79 18 100 08/11/18 14:40 77 17 100 08/11/18 14:30 78 15 100 08/11/18 14:20 76 17 100 08/11/18 14:10 84 7 L 100 08/11/18 14:07 80 16 104/73 98 08/11/18 14:04 79 08/11/18 14:03 80 08/11/18 13:30 81 16 100 08/11/18 13:20 77 15 100 08/11/18 13:10 82 17 99 08/11/18 13:00 80 16 113/63 99 Intake and Output (Last 8hrs): Intake & Output 08/11/18 08/11/18 08/11/18 06:59 14:59 22:59 Intake Total 1225 Output Total 100 Balance 1125 Weight 169 lb 4.8 oz Intake: IV 1225 Left Antecubital 1225 Output: Urine 100 Urine, Voided 100 Other: Voiding Method Urinal - Medications Active Medications: Active Medications Generic Name Dose Route Start Last Admin Trade Name Freq PRN Reason Stop Dose Admin Atorvastatin Calcium 20 mg 08/11/18 17:00 Lipitor PO DIN HAIRS Sodium Chloride 1,000 mls @ 125 mls/hr 08/10/18 20:15 08/11/18 05:08 Sodium Chloride 0.9% IV 125 mls/hr .Q8H HARIS Administration Levetiracetam 1,000 mg 08/11/18 10:00 08/11/18 09:21 Keppra PO 1,000 mg BID HARIS Administration Lisinopril 10 mg 08/11/18 10:00 08/11/18 09:21 Zestril PO 10 mg DAILY HARIS Administration Pantoprazole Sodium 40 mg 08/10/18 22:00 08/11/18 09:20 Protonix Inj IVP 40 mg Q12 HARIS Administration - Patient Studies Lab Studies: Microbiology Studies 08/10/18 12:15 Blood Culture - Preliminary Blood NO GROWTH AFTER 24 HOURS 08/10/18 12:45 Blood Culture - Preliminary Blood NO GROWTH AFTER 24 HOURS 08/10/18 16:30 C. difficile Antigen & Toxins A,B - Final Stool 08/10/18 16:30 Urine Culture - Final Urine Random >100,000 CFU/ML. MULTIPLE SPECIES. SUGGEST REPEAT SPECIMEN. Lab Studies 08/11/18 08/11/18 08/11/18 Range/Units 04:40 04:40 04:40 WBC 4.0 L (4.5-11.0) 10^3/uL RBC 4.75 (3.5-6.1) 10^6/uL Hgb 12.7 L (14.0-18.0) g/dL Hct 39.1 L (42.0-52.0) % MCV 82.3 (80.0-105.0) fl MCH 26.7 (25.0-35.0) pg MCHC 32.5 (31.0-37.0) g/dl RDW 13.5 (11.5-14.5) % Plt Count 250 (120.0-450.0) 10^3/uL MPV 10.4 (7.0-11.0) fl Neut % (Auto) (50.0-68.0) % Lymph % (Auto) (22.0-35.0) % Bureau % (Auto) (1.0-6.0) % Eos % (Auto) (1.5-5.0) % Baso % (Auto) (0.0-3.0) % Lymph # (Auto) (1.2-3.4) Bureau # (Auto) (0.1-0.6) Eos # (Auto) (0.0-0.7) Baso # (Auto) (0.0-2.0) K/mm3 Absolute Neuts (auto) (1.4-6.5) PT 12.7 H (9.4-12.5) SECONDS INR 1.14 Sodium (132-148) mmol/L Potassium (3.6-5.0) mmol/L Chloride (98-107) mmol/L Carbon Dioxide (21-33) mmol/L Anion Gap (10-20) BUN (7-21) mg/dL Creatinine (0.8-1.5) mg/dl Est GFR ( Amer) Est GFR (Non-Af Amer) POC Glucose (mg/dL) (65-110) mg/dL Random Glucose (70-110) mg/dL Hemoglobin A1c (4.2-6.5) % Calcium (8.4-10.5) mg/dL Phosphorus (2.5-4.5) mg/dL Magnesium (1.7-2.2) mg/dL Iron (45-180) ug/dL TIBC (261-462) ug/dL % Saturation (20-55) % Transferrin (206-381) mg/dL Ferritin ng/mL Total Bilirubin (0.2-1.3) mg/dL AST (17-59) U/L ALT (7-56) U/L Alkaline Phosphatase (38-126) U/L Total Protein (5.8-8.3) g/dL Albumin (3.0-4.8) g/dL Globulin gm/dL Albumin/Globulin Ratio (1.1-1.8) Triglycerides (35-160) mg/dL Cholesterol (130-200) mg/dL LDL Cholesterol Direct (0-129) mg/dL HDL Cholesterol (29-60) mg/dL Vitamin B12 (239-931) pg/mL Folate ng/mL TSH 3rd Generation (0.46-4.68) mIU/mL Urine Color (YELLOW) Urine Appearance (CLEAR) Urine pH (4.7-8.0) Ur Specific Malcolm (1.005-1.035) Urine Protein (<30 mg/dL) mg/dL Urine Glucose (UA) (NEGATIVE) mg/dL Urine Ketones (NEGATIVE) mg/dL Urine Blood (NEGATIVE) Urine Nitrate (NEGATIVE) Urine Bilirubin (NEGATIVE) Urine Urobilinogen (<1 E.U./dL) E.U./dL Ur Leukocyte Esterase (NEGATIVE) Toni/uL Urine RBC (0-2) /hpf Urine WBC (0-6) /hpf Ur Epithelial Cells (0-5) /hpf Calcium Oxalate Crystal (NONE) /hpf Blood Type Blood Type Confirm O POSITIVE Antibody Screen BBK History Checked 08/11/18 08/11/18 08/11/18 Range/Units 04:40 04:40 04:40 WBC (4.5-11.0) 10^3/uL RBC (3.5-6.1) 10^6/uL Hgb (14.0-18.0) g/dL Hct (42.0-52.0) % MCV (80.0-105.0) fl MCH (25.0-35.0) pg MCHC (31.0-37.0) g/dl RDW (11.5-14.5) % Plt Count (120.0-450.0) 10^3/uL MPV (7.0-11.0) fl Neut % (Auto) (50.0-68.0) % Lymph % (Auto) (22.0-35.0) % Bureau % (Auto) (1.0-6.0) % Eos % (Auto) (1.5-5.0) % Baso % (Auto) (0.0-3.0) % Lymph # (Auto) (1.2-3.4) Bureau # (Auto) (0.1-0.6) Eos # (Auto) (0.0-0.7) Baso # (Auto) (0.0-2.0) K/mm3 Absolute Neuts (auto) (1.4-6.5) PT (9.4-12.5) SECONDS INR Sodium 143 (132-148) mmol/L Potassium 5.0 (3.6-5.0) mmol/L Chloride 113 H (98-107) mmol/L Carbon Dioxide 19 L (21-33) mmol/L Anion Gap 17 (10-20) BUN 29 H (7-21) mg/dL Creatinine 2.6 H (0.8-1.5) mg/dl Est GFR ( Amer) 31 Est GFR (Non-Af Amer) 26 POC Glucose (mg/dL) (65-110) mg/dL Random Glucose 85 (70-110) mg/dL Hemoglobin A1c 5.5 (4.2-6.5) % Calcium 9.0 (8.4-10.5) mg/dL Phosphorus 4.0 (2.5-4.5) mg/dL Magnesium 2.2 (1.7-2.2) mg/dL Iron (45-180) ug/dL TIBC (261-462) ug/dL % Saturation (20-55) % Transferrin 181.92 L (206-381) mg/dL Ferritin 312.0 ng/mL Total Bilirubin 0.3 (0.2-1.3) mg/dL AST 15 L (17-59) U/L ALT 25 (7-56) U/L Alkaline Phosphatase 92 (38-126) U/L Total Protein 7.0 (5.8-8.3) g/dL Albumin 4.1 (3.0-4.8) g/dL Globulin 2.9 gm/dL Albumin/Globulin Ratio 1.4 (1.1-1.8) Triglycerides 158 (35-160) mg/dL Cholesterol 86 L (130-200) mg/dL LDL Cholesterol Direct 35 (0-129) mg/dL HDL Cholesterol 27 L (29-60) mg/dL Vitamin B12 289 (239-931) pg/mL Folate 9.3 ng/mL TSH 3rd Generation 2.09 (0.46-4.68) mIU/mL Urine Color (YELLOW) Urine Appearance (CLEAR) Urine pH (4.7-8.0) Ur Specific Malcolm (1.005-1.035) Urine Protein (<30 mg/dL) mg/dL Urine Glucose (UA) (NEGATIVE) mg/dL Urine Ketones (NEGATIVE) mg/dL Urine Blood (NEGATIVE) Urine Nitrate (NEGATIVE) Urine Bilirubin (NEGATIVE) Urine Urobilinogen (<1 E.U./dL) E.U./dL Ur Leukocyte Esterase (NEGATIVE) Toni/uL Urine RBC (0-2) /hpf Urine WBC (0-6) /hpf Ur Epithelial Cells (0-5) /hpf Calcium Oxalate Crystal (NONE) /hpf Blood Type Blood Type Confirm Antibody Screen BBK History Checked 08/10/18 08/10/18 08/10/18 Range/Units 23:45 23:45 23:45 WBC 4.2 L D (4.5-11.0) 10^3/uL RBC 4.69 (3.5-6.1) 10^6/uL Hgb 12.4 L D (14.0-18.0) g/dL Hct 38.4 L (42.0-52.0) % MCV 81.9 (80.0-105.0) fl MCH 26.4 (25.0-35.0) pg MCHC 32.3 (31.0-37.0) g/dl RDW 13.5 (11.5-14.5) % Plt Count 260 (120.0-450.0) 10^3/uL MPV 10.0 (7.0-11.0) fl Neut % (Auto) 36.3 L (50.0-68.0) % Lymph % (Auto) 30.5 (22.0-35.0) % Bureau % (Auto) 32.5 H (1.0-6.0) % Eos % (Auto) 0.2 L (1.5-5.0) % Baso % (Auto) 0.5 (0.0-3.0) % Lymph # (Auto) 1.3 (1.2-3.4) Bureau # (Auto) 1.4 H (0.1-0.6) Eos # (Auto) 0.0 (0.0-0.7) Baso # (Auto) 0.02 (0.0-2.0) K/mm3 Absolute Neuts (auto) 1.51 (1.4-6.5) PT (9.4-12.5) SECONDS INR Sodium 141 (132-148) mmol/L Potassium 4.8 (3.6-5.0) mmol/L Chloride 111 H (98-107) mmol/L Carbon Dioxide 20 L (21-33) mmol/L Anion Gap 16 (10-20) BUN 30 H (7-21) mg/dL Creatinine 3.0 H (0.8-1.5) mg/dl Est GFR ( Amer) 27 Est GFR (Non-Af Amer) 22 POC Glucose (mg/dL) (65-110) mg/dL Random Glucose 87 (70-110) mg/dL Hemoglobin A1c (4.2-6.5) % Calcium 9.0 (8.4-10.5) mg/dL Phosphorus (2.5-4.5) mg/dL Magnesium (1.7-2.2) mg/dL Iron (45-180) ug/dL TIBC (261-462) ug/dL % Saturation (20-55) % Transferrin (206-381) mg/dL Ferritin ng/mL Total Bilirubin 0.3 (0.2-1.3) mg/dL AST 15 L D (17-59) U/L ALT 21 (7-56) U/L Alkaline Phosphatase 90 (38-126) U/L Total Protein 6.8 (5.8-8.3) g/dL Albumin 4.0 (3.0-4.8) g/dL Globulin 2.9 gm/dL Albumin/Globulin Ratio 1.4 (1.1-1.8) Triglycerides (35-160) mg/dL Cholesterol (130-200) mg/dL LDL Cholesterol Direct (0-129) mg/dL HDL Cholesterol (29-60) mg/dL Vitamin B12 (239-931) pg/mL Folate ng/mL TSH 3rd Generation (0.46-4.68) mIU/mL Urine Color (YELLOW) Urine Appearance (CLEAR) Urine pH (4.7-8.0) Ur Specific Malcolm (1.005-1.035) Urine Protein (<30 mg/dL) mg/dL Urine Glucose (UA) (NEGATIVE) mg/dL Urine Ketones (NEGATIVE) mg/dL Urine Blood (NEGATIVE) Urine Nitrate (NEGATIVE) Urine Bilirubin (NEGATIVE) Urine Urobilinogen (<1 E.U./dL) E.U./dL Ur Leukocyte Esterase (NEGATIVE) Toni/uL Urine RBC (0-2) /hpf Urine WBC (0-6) /hpf Ur Epithelial Cells (0-5) /hpf Calcium Oxalate Crystal (NONE) /hpf Blood Type O POSITIVE Blood Type Confirm Antibody Screen Negative BBK History Checked No verified bt 08/10/18 08/10/18 08/10/18 Range/Units 22:00 16:41 16:30 WBC (4.5-11.0) 10^3/uL RBC (3.5-6.1) 10^6/uL Hgb (14.0-18.0) g/dL Hct (42.0-52.0) % MCV (80.0-105.0) fl MCH (25.0-35.0) pg MCHC (31.0-37.0) g/dl RDW (11.5-14.5) % Plt Count (120.0-450.0) 10^3/uL MPV (7.0-11.0) fl Neut % (Auto) (50.0-68.0) % Lymph % (Auto) (22.0-35.0) % Bureau % (Auto) (1.0-6.0) % Eos % (Auto) (1.5-5.0) % Baso % (Auto) (0.0-3.0) % Lymph # (Auto) (1.2-3.4) Bureau # (Auto) (0.1-0.6) Eos # (Auto) (0.0-0.7) Baso # (Auto) (0.0-2.0) K/mm3 Absolute Neuts (auto) (1.4-6.5) PT (9.4-12.5) SECONDS INR Sodium (132-148) mmol/L Potassium (3.6-5.0) mmol/L Chloride (98-107) mmol/L Carbon Dioxide (21-33) mmol/L Anion Gap (10-20) BUN (7-21) mg/dL Creatinine (0.8-1.5) mg/dl Est GFR ( Amer) Est GFR (Non-Af Amer) POC Glucose (mg/dL) 121 H (65-110) mg/dL Random Glucose (70-110) mg/dL Hemoglobin A1c (4.2-6.5) % Calcium (8.4-10.5) mg/dL Phosphorus (2.5-4.5) mg/dL Magnesium (1.7-2.2) mg/dL Iron 65 (45-180) ug/dL TIBC 313 (261-462) ug/dL % Saturation 21 (20-55) % Transferrin (206-381) mg/dL Ferritin ng/mL Total Bilirubin (0.2-1.3) mg/dL AST (17-59) U/L ALT (7-56) U/L Alkaline Phosphatase (38-126) U/L Total Protein (5.8-8.3) g/dL Albumin (3.0-4.8) g/dL Globulin gm/dL Albumin/Globulin Ratio (1.1-1.8) Triglycerides (35-160) mg/dL Cholesterol (130-200) mg/dL LDL Cholesterol Direct (0-129) mg/dL HDL Cholesterol (29-60) mg/dL Vitamin B12 (239-931) pg/mL Folate ng/mL TSH 3rd Generation (0.46-4.68) mIU/mL Urine Color Yellow (YELLOW) Urine Appearance Slight-cloudy (CLEAR) Urine pH 5.5 (4.7-8.0) Ur Specific Malcolm >= 1.030 (1.005-1.035) Urine Protein 30 H (<30 mg/dL) mg/dL Urine Glucose (UA) Negative (NEGATIVE) mg/dL Urine Ketones Trace H (NEGATIVE) mg/dL Urine Blood Moderate H (NEGATIVE) Urine Nitrate Negative (NEGATIVE) Urine Bilirubin Small H (NEGATIVE) Urine Urobilinogen 0.2 (<1 E.U./dL) E.U./dL Ur Leukocyte Esterase Negative (NEGATIVE) Toni/uL Urine RBC 5 - 10 H (0-2) /hpf Urine WBC None (0-6) /hpf Ur Epithelial Cells None (0-5) /hpf Calcium Oxalate Crystal Few (NONE) /hpf Blood Type Blood Type Confirm Antibody Screen BBK History Checked Laboratory Results - last 24 hr 08/10/18 08/10/18 08/10/18 16:30 16:41 22:00 WBC RBC Hgb Hct MCV MCH MCHC RDW Plt Count MPV Neut % (Auto) Lymph % (Auto) Bureau % (Auto) Eos % (Auto) Baso % (Auto) Lymph # (Auto) Bureau # (Auto) Eos # (Auto) Baso # (Auto) Absolute Neuts (auto) PT INR Sodium Potassium Chloride Carbon Dioxide Anion Gap BUN Creatinine Est GFR ( Amer) Est GFR (Non-Af Amer) POC Glucose (mg/dL) 121 H Random Glucose Hemoglobin A1c Calcium Phosphorus Magnesium Iron 65 TIBC 313 % Saturation 21 Transferrin Ferritin Total Bilirubin AST ALT Alkaline Phosphatase Total Protein Albumin Globulin Albumin/Globulin Ratio Triglycerides Cholesterol LDL Cholesterol Direct HDL Cholesterol Vitamin B12 Folate TSH 3rd Generation Urine Color Yellow Urine Appearance Slight-cloudy Urine pH 5.5 Ur Specific Malcolm >= 1.030 Urine Protein 30 H Urine Glucose (UA) Negative Urine Ketones Trace H Urine Blood Moderate H Urine Nitrate Negative Urine Bilirubin Small H Urine Urobilinogen 0.2 Ur Leukocyte Esterase Negative Urine RBC 5 - 10 H Urine WBC None Ur Epithelial Cells None Calcium Oxalate Crystal Few Blood Type Blood Type Confirm Antibody Screen BBK History Checked 08/10/18 08/10/18 08/10/18 23:45 23:45 23:45 WBC 4.2 L D RBC 4.69 Hgb 12.4 L D Hct 38.4 L MCV 81.9 MCH 26.4 MCHC 32.3 RDW 13.5 Plt Count 260 MPV 10.0 Neut % (Auto) 36.3 L Lymph % (Auto) 30.5 Bureau % (Auto) 32.5 H Eos % (Auto) 0.2 L Baso % (Auto) 0.5 Lymph # (Auto) 1.3 Bureau # (Auto) 1.4 H Eos # (Auto) 0.0 Baso # (Auto) 0.02 Absolute Neuts (auto) 1.51 PT INR Sodium 141 Potassium 4.8 Chloride 111 H Carbon Dioxide 20 L Anion Gap 16 BUN 30 H Creatinine 3.0 H Est GFR ( Amer) 27 Est GFR (Non-Af Amer) 22 POC Glucose (mg/dL) Random Glucose 87 Hemoglobin A1c Calcium 9.0 Phosphorus Magnesium Iron TIBC % Saturation Transferrin Ferritin Total Bilirubin 0.3 AST 15 L D ALT 21 Alkaline Phosphatase 90 Total Protein 6.8 Albumin 4.0 Globulin 2.9 Albumin/Globulin Ratio 1.4 Triglycerides Cholesterol LDL Cholesterol Direct HDL Cholesterol Vitamin B12 Folate TSH 3rd Generation Urine Color Urine Appearance Urine pH Ur Specific Malcolm Urine Protein Urine Glucose (UA) Urine Ketones Urine Blood Urine Nitrate Urine Bilirubin Urine Urobilinogen Ur Leukocyte Esterase Urine RBC Urine WBC Ur Epithelial Cells Calcium Oxalate Crystal Blood Type O POSITIVE Blood Type Confirm Antibody Screen Negative BBK History Checked No verified bt 08/11/18 08/11/18 08/11/18 04:40 04:40 04:40 WBC RBC Hgb Hct MCV MCH MCHC RDW Plt Count MPV Neut % (Auto) Lymph % (Auto) Bureau % (Auto) Eos % (Auto) Baso % (Auto) Lymph # (Auto) Bureau # (Auto) Eos # (Auto) Baso # (Auto) Absolute Neuts (auto) PT INR Sodium 143 Potassium 5.0 Chloride 113 H Carbon Dioxide 19 L Anion Gap 17 BUN 29 H Creatinine 2.6 H Est GFR ( Amer) 31 Est GFR (Non-Af Amer) 26 POC Glucose (mg/dL) Random Glucose 85 Hemoglobin A1c 5.5 Calcium 9.0 Phosphorus 4.0 Magnesium 2.2 Iron TIBC % Saturation Transferrin 181.92 L Ferritin 312.0 Total Bilirubin 0.3 AST 15 L ALT 25 Alkaline Phosphatase 92 Total Protein 7.0 Albumin 4.1 Globulin 2.9 Albumin/Globulin Ratio 1.4 Triglycerides 158 Cholesterol 86 L LDL Cholesterol Direct 35 HDL Cholesterol 27 L Vitamin B12 289 Folate 9.3 TSH 3rd Generation 2.09 Urine Color Urine Appearance Urine pH Ur Specific Malcolm Urine Protein Urine Glucose (UA) Urine Ketones Urine Blood Urine Nitrate Urine Bilirubin Urine Urobilinogen Ur Leukocyte Esterase Urine RBC Urine WBC Ur Epithelial Cells Calcium Oxalate Crystal Blood Type Blood Type Confirm Antibody Screen BBK History Checked 08/11/18 08/11/18 08/11/18 04:40 04:40 04:40 WBC 4.0 L RBC 4.75 Hgb 12.7 L Hct 39.1 L MCV 82.3 MCH 26.7 MCHC 32.5 RDW 13.5 Plt Count 250 MPV 10.4 Neut % (Auto) Lymph % (Auto) Bureau % (Auto) Eos % (Auto) Baso % (Auto) Lymph # (Auto) Bureau # (Auto) Eos # (Auto) Baso # (Auto) Absolute Neuts (auto) PT 12.7 H INR 1.14 Sodium Potassium Chloride Carbon Dioxide Anion Gap BUN Creatinine Est GFR ( Amer) Est GFR (Non-Af Amer) POC Glucose (mg/dL) Random Glucose Hemoglobin A1c Calcium Phosphorus Magnesium Iron TIBC % Saturation Transferrin Ferritin Total Bilirubin AST ALT Alkaline Phosphatase Total Protein Albumin Globulin Albumin/Globulin Ratio Triglycerides Cholesterol LDL Cholesterol Direct HDL Cholesterol Vitamin B12 Folate TSH 3rd Generation Urine Color Urine Appearance Urine pH Ur Specific Malcolm Urine Protein Urine Glucose (UA) Urine Ketones Urine Blood Urine Nitrate Urine Bilirubin Urine Urobilinogen Ur Leukocyte Esterase Urine RBC Urine WBC Ur Epithelial Cells Calcium Oxalate Crystal Blood Type Blood Type Confirm O POSITIVE Antibody Screen BBK History Checked Radiology Impressions: Radiology Impressions Abdomen/Pelvis CT 08/10/18 15:55 IMPRESSION: Mural thickening of the right: Including hepatic flexure and proximal transverse colon. Consistent with nonspecific colitis. No additional abnormality. Critical Care Progress Note - Nutrition Nutrition: Nutrition Category Date Time Status Liquid Diet [DIET] Diets 08/11/18 Lunch Ordered Attending/Attestation - Attestation I have personally seen and examined this patient.: Yes I have fully participated in the care of the patient.: Yes I have reviewed all pertinent clinical information: Yes Notes (Text): 08/11/18 16:[address] Toro note
[2018-08-11 12:58] LABS: FOLATE 9.3 ng/mL
--- NOTE | 2018-08-11 13:03 | CP.PCM.CON ---
History of Present Illness - History of Present Illness History of Present Illness: Neurology Consultation Note: Consult requested by Dr. Armstrong Mr. Birch is a 53-year-old man with a past medical history of severe t raumatic brain injury requiring left frontal/temporal craniectomy for decompression in 2018. He continues to have the skull defect and has not had cranioplasty. He wears a helmet for protection. For the past several weeks, he has had diarrhea and was apparently becoming less interactive. As a result of the TBI, the patient does have right side weakness and expressive aphasia. There is concern that the patient has developed infectious diarrhea and while in the ED he had a bowel movement that appeared to have some blood products. The patient was rehydrated and appears to be better today. He is on Keppra 1000 mg BID for seizure prophylaxis and was started on vancomycin and metronidazole for suspected C. diff colitis. Neurology was consulted to assist with the management and care. Review of Systems - Review of Systems Systems not reviewed;Unavailable: Altered Mental Status Past Patient History - Infectious Disease Hx of Infectious Diseases: None - Past Social History Smoking Status: Never Smoked - CARDIAC Hx Hypertension: Yes - PULMONARY Hx Respiratory Disorders: No - NEUROLOGICAL Other/Comment: .traumatic brain injury.BRAIN SUGERY - HEENT Hx HEENT Problems: No - RENAL Hx Chronic Kidney Disease: No - ENDOCRINE/METABOLIC Hx Endocrine Disorders: No - HEMATOLOGICAL/ONCOLOGICAL Hx Blood Disorders: No - INTEGUMENTARY Hx Dermatological Problems: No - MUSCULOSKELETAL/RHEUMATOLOGICAL Hx Falls: Yes - GASTROINTESTINAL Hx Gastrointestinal Disorders: No - GENITOURINARY/GYNECOLOGICAL Hx Genitourinary Disorders: No - PSYCHIATRIC Hx Psychophysiologic Disorder: No Hx Substance Use: No - SURGICAL HISTORY Hx Surgeries: Yes Other/Comment: craniectomy,craniotomy.BRAIN SURGERY - ANESTHESIA Hx Anesthesia: No Hx Anesthesia Reactions: No Hx Malignant Hyperthermia: No Meds Allergies/Adverse Reactions: Allergies Allergy/AdvReac Type Severity Reaction Status Date / Time No Known Allergies Allergy Verified 08/10/18 12:04 - Medications Medications: Current Medications Atorvastatin Calcium (Lipitor) 20 mg PO DIN [facility] Metronidazole (Flagyl) 500 mg in 100 mls @ 100 mls/hr IVPB Q8 [facility]; Protocol Last Admin: 08/11/18 05:09 Dose: 100 mls/hr Sodium Chloride (Sodium Chloride 0.9%) 1,000 mls @ 125 mls/hr IV .Q8H [facility] Last Admin: 08/11/18 05:08 Dose: 125 mls/hr Levetiracetam (Keppra) 1,000 mg PO BID [facility] Last Admin: 08/11/18 09:21 Dose: 1,000 mg Lisinopril (Zestril) 10 mg PO DAILY [facility] Last Admin: 08/11/18 09:21 Dose: 10 mg Pantoprazole Sodium (Protonix Inj) 40 mg IVP Q12 [facility] Last Admin: 08/11/18 09:20 Dose: 40 mg Vancomycin HCl (Vancocin 25 Mg/Ml (Oral Use)) 125 mg PO QID [facility]; Protocol Last Admin: 08/11/18 09:21 Dose: 125 mg Physical Exam - Constitutional Appears: Well - Head Exam Additional comments: left frontal/temporal skull defect noted. - Eye Exam Eye Exam: EOMI, Normal appearance, PERRL Pupil Exam: NORMAL ACCOMODATION, PERRL - ENT Exam ENT Exam: Mucous Membranes Moist, Normal Exam - Neck Exam Neck exam: Positive for: Normal Inspection - Respiratory Exam Respiratory Exam: Clear to Auscultation Bilateral, NORMAL BREATHING PATTERN - Cardiovascular Exam Cardiovascular Exam: REGULAR RHYTHM, +S1, +S2 - GI/Abdominal Exam GI & Abdominal Exam: Normal Bowel Sounds, Soft. absent: Tenderness - Extremities Exam Extremities exam: Positive for: normal inspection - Back Exam Back exam: NORMAL INSPECTION - Neurological Exam Neurological exam: Alert, CN II-XII Intact, Reflexes Normal Additional comments: Productive and receptive aphasia, right side hemiplegia, worse in RUE (0/5) and RLE (3/5). - Psychiatric Exam Psychiatric exam: Normal Affect, Normal Mood - Skin Skin Exam: Dry, Intact, Normal Color, Warm Results - Vital Signs Recent Vital Signs: Last Vital Signs Temp 97.9 F 08/11/18 08:00 Pulse 78 08/11/18 09:21 Resp 15 08/11/18 05:59 BP 112/60 08/11/18 09:21 Pulse Ox 99 08/11/18 05:59 - Labs Result Diagrams: 08/11/18 04:40 08/11/18 04:40 Labs: Laboratory Results - last 24 hr 08/10/18 08/10/18 08/10/18 12:45 12:45 12:45 WBC 5.9 RBC 5.34 Hgb 14.4 Hct 43.7 MCV 81.8 MCH 27.0 MCHC 33.0 RDW 13.4 Plt Count 344 MPV 10.4 Neut % (Auto) 57.8 Lymph % (Auto) 18.8 L [place] % (Auto) 23.2 H Eos % (Auto) 0.0 L Baso % (Auto) 0.2 Lymph # (Auto) 1.1 L [place] # (Auto) 1.4 H Eos # (Auto) 0.0 Baso # (Auto) 0.01 Absolute Neuts (auto) 3.39 Neutrophils % (Manual) 54 Band Neutrophils % 5 H Lymphocytes % (Manual) 20 L Atypical Lymphs % 1 H Monocytes % (Manual) 18 H PT 12.0 INR 1.06 APTT 34.6 pO2 VBG pH VBG pCO2 VBG HCO3 VBG Total CO2 VBG O2 Sat (Calc) VBG Base Excess VBG Potassium Glucose Lactate FiO2 Sodium 143 Potassium 4.7 Chloride 105 Carbon Dioxide 21 Anion Gap 21 H BUN 33 H Creatinine 4.0 H Est GFR ( Amer) 19 Est GFR (Non-Af Amer) 16 POC Glucose (mg/dL) Random Glucose 98 Hemoglobin A1c Calcium 9.6 Phosphorus Magnesium 2.3 H Iron TIBC % Saturation Transferrin Ferritin Total Bilirubin 0.3 AST 25 ALT 29 Alkaline Phosphatase 105 Lactate Dehydrogenase 372 Total Creatine Kinase 61 Troponin I < 0.01 Total Protein 8.5 H Albumin 5.0 H Globulin 3.5 Albumin/Globulin Ratio 1.4 Triglycerides Cholesterol LDL Cholesterol Direct HDL Cholesterol TSH 3rd Generation Venous Blood Potassium Urine Color Urine Appearance Urine pH Ur Specific [place] Urine Protein Urine Glucose (UA) Urine Ketones Urine Blood Urine Nitrate Urine Bilirubin Urine Urobilinogen Ur Leukocyte Esterase Urine RBC Urine WBC Ur Epithelial Cells Calcium Oxalate Crystal Blood Type Blood Type Confirm Antibody Screen BBK History Checked 08/10/18 08/10/18 08/10/18 12:55 16:30 16:41 WBC RBC Hgb Hct MCV MCH MCHC RDW Plt Count MPV Neut % (Auto) Lymph % (Auto) [place] % (Auto) Eos % (Auto) Baso % (Auto) Lymph # (Auto) [place] # (Auto) Eos # (Auto) Baso # (Auto) Absolute Neuts (auto) Neutrophils % (Manual) Band Neutrophils % Lymphocytes % (Manual) Atypical Lymphs % Monocytes % (Manual) PT INR APTT pO2 27 L VBG pH 7.27 L VBG pCO2 48.0 VBG HCO3 22.0 VBG Total CO2 23.5 VBG O2 Sat (Calc) 47.9 VBG Base Excess -5.1 L VBG Potassium 5.1 Glucose 95 Lactate 0.9 FiO2 21.0 Sodium 137.0 Potassium Chloride 108.0 H Carbon Dioxide Anion Gap BUN Creatinine Est GFR ( Amer) Est GFR (Non-Af Amer) POC Glucose (mg/dL) 121 H Random Glucose Hemoglobin A1c Calcium Phosphorus Magnesium Iron TIBC % Saturation Transferrin Ferritin Total Bilirubin AST ALT Alkaline Phosphatase Lactate Dehydrogenase Total Creatine Kinase Troponin I Total Protein Albumin Globulin Albumin/Globulin Ratio Triglycerides Cholesterol LDL Cholesterol Direct HDL Cholesterol TSH 3rd Generation Venous Blood Potassium 5.1 Urine Color Yellow Urine Appearance Slight-cloudy Urine pH 5.5 Ur Specific [place] >= 1.030 Urine Protein 30 H Urine Glucose (UA) Negative Urine Ketones Trace H Urine Blood Moderate H Urine Nitrate Negative Urine Bilirubin Small H Urine Urobilinogen 0.2 Ur Leukocyte Esterase Negative Urine RBC 5 - 10 H Urine WBC None Ur Epithelial Cells None Calcium Oxalate Crystal Few Blood Type Blood Type Confirm Antibody Screen BBK History Checked 08/10/18 08/10/18 08/10/18 22:00 23:45 23:45 WBC 4.2 L D RBC 4.69 Hgb 12.4 L D Hct 38.4 L MCV 81.9 MCH 26.4 MCHC 32.3 RDW 13.5 Plt Count 260 MPV 10.0 Neut % (Auto) 36.3 L Lymph % (Auto) 30.5 [place] % (Auto) 32.5 H Eos % (Auto) 0.2 L Baso % (Auto) 0.5 Lymph # (Auto) 1.3 [place] # (Auto) 1.4 H Eos # (Auto) 0.0 Baso # (Auto) 0.02 Absolute Neuts (auto) 1.51 Neutrophils % (Manual) Band Neutrophils % Lymphocytes % (Manual) Atypical Lymphs % Monocytes % (Manual) PT INR APTT pO2 VBG pH VBG pCO2 VBG HCO3 VBG Total CO2 VBG O2 Sat (Calc) VBG Base Excess VBG Potassium Glucose Lactate FiO2 Sodium Potassium Chloride Carbon Dioxide Anion Gap BUN Creatinine Est GFR ( Amer) Est GFR (Non-Af Amer) POC Glucose (mg/dL) Random Glucose Hemoglobin A1c Calcium Phosphorus Magnesium Iron 65 TIBC 313 % Saturation 21 Transferrin Ferritin Total Bilirubin AST ALT Alkaline Phosphatase Lactate Dehydrogenase Total Creatine Kinase Troponin I Total Protein Albumin Globulin Albumin/Globulin Ratio Triglycerides Cholesterol LDL Cholesterol Direct HDL Cholesterol TSH 3rd Generation Venous Blood Potassium Urine Color Urine Appearance Urine pH Ur Specific [place] Urine Protein Urine Glucose (UA) Urine Ketones Urine Blood Urine Nitrate Urine Bilirubin Urine Urobilinogen Ur Leukocyte Esterase Urine RBC Urine WBC Ur Epithelial Cells Calcium Oxalate Crystal Blood Type O POSITIVE Blood Type Confirm Antibody Screen Negative BBK History Checked No verified bt 08/10/18 08/11/18 08/11/18 23:45 04:40 04:40 WBC RBC Hgb Hct MCV MCH MCHC RDW Plt Count MPV Neut % (Auto) Lymph % (Auto) [place] % (Auto) Eos % (Auto) Baso % (Auto) Lymph # (Auto) [place] # (Auto) Eos # (Auto) Baso # (Auto) Absolute Neuts (auto) Neutrophils % (Manual) Band Neutrophils % Lymphocytes % (Manual) Atypical Lymphs % Monocytes % (Manual) PT INR APTT pO2 VBG pH VBG pCO2 VBG HCO3 VBG Total CO2 VBG O2 Sat (Calc) VBG Base Excess VBG Potassium Glucose Lactate FiO2 Sodium 141 Potassium 4.8 Chloride 111 H Carbon Dioxide 20 L Anion Gap 16 BUN 30 H Creatinine 3.0 H Est GFR ( Amer) 27 Est GFR (Non-Af Amer) 22 POC Glucose (mg/dL) Random Glucose 87 Hemoglobin A1c 5.5 Calcium 9.0 Phosphorus Magnesium Iron TIBC % Saturation Transferrin 181.92 L Ferritin Total Bilirubin 0.3 AST 15 L D ALT 21 Alkaline Phosphatase 90 Lactate Dehydrogenase Total Creatine Kinase Troponin I Total Protein 6.8 Albumin 4.0 Globulin 2.9 Albumin/Globulin Ratio 1.4 Triglycerides Cholesterol LDL Cholesterol Direct HDL Cholesterol TSH 3rd Generation 2.09 Venous Blood Potassium Urine Color Urine Appearance Urine pH Ur Specific [place] Urine Protein Urine Glucose (UA) Urine Ketones Urine Blood Urine Nitrate Urine Bilirubin Urine Urobilinogen Ur Leukocyte Esterase Urine RBC Urine WBC Ur Epithelial Cells Calcium Oxalate Crystal Blood Type Blood Type Confirm Antibody Screen BBK History Checked 08/11/18 08/11/18 08/11/18 04:40 04:40 04:40 WBC 4.0 L RBC 4.75 Hgb 12.7 L Hct 39.1 L MCV 82.3 MCH 26.7 MCHC 32.5 RDW 13.5 Plt Count 250 MPV 10.4 Neut % (Auto) Lymph % (Auto) [place] % (Auto) Eos % (Auto) Baso % (Auto) Lymph # (Auto) [place] # (Auto) Eos # (Auto) Baso # (Auto) Absolute Neuts (auto) Neutrophils % (Manual) Band Neutrophils % Lymphocytes % (Manual) Atypical Lymphs % Monocytes % (Manual) PT INR APTT pO2 VBG pH VBG pCO2 VBG HCO3 VBG Total CO2 VBG O2 Sat (Calc) VBG Base Excess VBG Potassium Glucose Lactate FiO2 Sodium 143 Potassium 5.0 Chloride 113 H Carbon Dioxide 19 L Anion Gap 17 BUN 29 H Creatinine 2.6 H Est GFR ( Amer) 31 Est GFR (Non-Af Amer) 26 POC Glucose (mg/dL) Random Glucose 85 Hemoglobin A1c Calcium 9.0 Phosphorus 4.0 Magnesium 2.2 Iron TIBC % Saturation Transferrin Ferritin 312.0 Total Bilirubin 0.3 AST 15 L ALT 25 Alkaline Phosphatase 92 Lactate Dehydrogenase Total Creatine Kinase Troponin I Total Protein 7.0 Albumin 4.1 Globulin 2.9 Albumin/Globulin Ratio 1.4 Triglycerides 158 Cholesterol 86 L LDL Cholesterol Direct 35 HDL Cholesterol 27 L TSH 3rd Generation Venous Blood Potassium Urine Color Urine Appearance Urine pH Ur Specific [place] Urine Protein Urine Glucose (UA) Urine Ketones Urine Blood Urine Nitrate Urine Bilirubin Urine Urobilinogen Ur Leukocyte Esterase Urine RBC Urine WBC Ur Epithelial Cells Calcium Oxalate Crystal Blood Type Blood Type Confirm O POSITIVE Antibody Screen BBK History Checked 08/11/18 04:40 WBC RBC Hgb Hct MCV MCH MCHC RDW Plt Count MPV Neut % (Auto) Lymph % (Auto) [place] % (Auto) Eos % (Auto) Baso % (Auto) Lymph # (Auto) [place] # (Auto) Eos # (Auto) Baso # (Auto) Absolute Neuts (auto) Neutrophils % (Manual) Band Neutrophils % Lymphocytes % (Manual) Atypical Lymphs % Monocytes % (Manual) PT 12.7 H INR 1.14 APTT pO2 VBG pH VBG pCO2 VBG HCO3 VBG Total CO2 VBG O2 Sat (Calc) VBG Base Excess VBG Potassium Glucose Lactate FiO2 Sodium Potassium Chloride Carbon Dioxide Anion Gap BUN Creatinine Est GFR ( Amer) Est GFR (Non-Af Amer) POC Glucose (mg/dL) Random Glucose Hemoglobin A1c Calcium Phosphorus Magnesium Iron TIBC % Saturation Transferrin Ferritin Total Bilirubin AST ALT Alkaline Phosphatase Lactate Dehydrogenase Total Creatine Kinase Troponin I Total Protein Albumin Globulin Albumin/Globulin Ratio Triglycerides Cholesterol LDL Cholesterol Direct HDL Cholesterol TSH 3rd Generation Venous Blood Potassium Urine Color Urine Appearance Urine pH Ur Specific [place] Urine Protein Urine Glucose (UA) Urine Ketones Urine Blood Urine Nitrate Urine Bilirubin Urine Urobilinogen Ur Leukocyte Esterase Urine RBC Urine WBC Ur Epithelial Cells Calcium Oxalate Crystal Blood Type Blood Type Confirm Antibody Screen BBK History Checked Assessment & Plan (1) Toxic metabolic encephalopathy Assessment and Plan: Continue treatment of the underlying infection and dehydration. The patient appears to be improving. There are no new changes on the CT head. He has a craniotomy and there is no significant herniation noted. Clinically, the patient is doing well from a neurological perspective considering his history. Thank you for this consultation. Status: Acute (2) Traumatic brain injury Assessment and Plan: The CT head shows expected outcome from hemicraniectomy with depression of the cortex to below the remaining skull and no significant herniation. Follow-up with [facility] for cranioplasty based on their recommendation. Status: Chronic
--- NOTE | 2018-08-11 13:45 | CP.PCM.CON ---
History of Present Illness - History of Present Illness History of Present Illness: RENAL HPI: 53 year old male PMH of head injury/bleed from fall who presented to ER w/ weakness and change in mentals status over the past week. He was a poor historian but per family - frequent diarrhea and dec appetite. He had a large maroon colored stool in ER w/ hypotension and tachycardia and so was admitted to ICU for further evaluation. He is unaware of any history of CKd. He was found to have TONO which is now improving ros: limited as pt was not aware of many of medical problems PMH: head injury and as below PSH: cranial surgeries x2 Meds: as below Allergies: NKDA SHx: pt unable to tell FHx: no reported esrd per pt labs and imaging as above pe: VS as below gen: nad sclera: anicteric op: clear neck: supple CV: +S1+s2 no rub lungs: cta b/l abd: soft + bowle sounds no organomegaly ext: no edema neuro: follows commands psych: flat skin no rash labs and imaging reviewed imp: ARF/ colitis/ Acidosis/ Anemia/ hypotension TONO - improving at this point. b/l renal function clear yet agree w/ fluids . likely prerenal from hypotensive event will monitor hco3 monitor h and h bp is improved f/u GI and neuro. Past Patient History - Infectious Disease Hx of Infectious Diseases: None - Past Social History Smoking Status: Never Smoked - CARDIAC Hx Hypertension: Yes - PULMONARY Hx Respiratory Disorders: No - NEUROLOGICAL Other/Comment: .traumatic brain injury.BRAIN SUGERY - HEENT Hx HEENT Problems: No - RENAL Hx Chronic Kidney Disease: No - ENDOCRINE/METABOLIC Hx Endocrine Disorders: No - HEMATOLOGICAL/ONCOLOGICAL Hx Blood Disorders: No - INTEGUMENTARY Hx Dermatological Problems: No - MUSCULOSKELETAL/RHEUMATOLOGICAL Hx Falls: Yes - GASTROINTESTINAL Hx Gastrointestinal Disorders: No - GENITOURINARY/GYNECOLOGICAL Hx Genitourinary Disorders: No - PSYCHIATRIC Hx Psychophysiologic Disorder: No Hx Substance Use: No - SURGICAL HISTORY Hx Surgeries: Yes Other/Comment: craniectomy,craniotomy.BRAIN SURGERY - ANESTHESIA Hx Anesthesia: No Hx Anesthesia Reactions: No Hx Malignant Hyperthermia: No Meds Allergies/Adverse Reactions: Allergies Allergy/AdvReac Type Severity Reaction Status Date / Time No Known Allergies Allergy Verified 08/10/18 12:04 - Medications Medications: Current Medications Atorvastatin Calcium (Lipitor) 20 mg PO DIN [facility] Metronidazole (Flagyl) 500 mg in 100 mls @ 100 mls/hr IVPB Q8 [facility]; Protocol Last Admin: 08/11/18 05:09 Dose: 100 mls/hr Sodium Chloride (Sodium Chloride 0.9%) 1,000 mls @ 125 mls/hr IV .Q8H [facility] Last Admin: 08/11/18 05:08 Dose: 125 mls/hr Levetiracetam (Keppra) 1,000 mg PO BID [facility] Last Admin: 08/11/18 09:21 Dose: 1,000 mg Lisinopril (Zestril) 10 mg PO DAILY [facility] Last Admin: 08/11/18 09:21 Dose: 10 mg Pantoprazole Sodium (Protonix Inj) 40 mg IVP Q12 [facility] Last Admin: 08/11/18 09:20 Dose: 40 mg Vancomycin HCl (Vancocin 25 Mg/Ml (Oral Use)) 125 mg PO QID [facility]; Protocol Last Admin: 08/11/18 09:21 Dose: 125 mg Results - Vital Signs Recent Vital Signs: Last Vital Signs Temp 97.9 F 08/11/18 08:00 Pulse 78 08/11/18 09:21 Resp 15 08/11/18 05:59 BP 112/60 08/11/18 09:21 Pulse Ox 99 08/11/18 05:59 - Labs Result Diagrams: 08/11/18 04:40 08/11/18 04:40 Labs: Laboratory Results - last 24 hr 08/10/18 08/10/18 08/10/18 12:45 16:30 16:41 WBC RBC Hgb Hct MCV MCH MCHC RDW Plt Count MPV Neut % (Auto) Lymph % (Auto) [place] % (Auto) Eos % (Auto) Baso % (Auto) Lymph # (Auto) [place] # (Auto) Eos # (Auto) Baso # (Auto) Absolute Neuts (auto) Neutrophils % (Manual) 54 Band Neutrophils % 5 H Lymphocytes % (Manual) 20 L Atypical Lymphs % 1 H Monocytes % (Manual) 18 H PT INR Sodium Potassium Chloride Carbon Dioxide Anion Gap BUN Creatinine Est GFR ( Amer) Est GFR (Non-Af Amer) POC Glucose (mg/dL) 121 H Random Glucose Hemoglobin A1c Calcium Phosphorus Magnesium Iron TIBC % Saturation Transferrin Ferritin Total Bilirubin AST ALT Alkaline Phosphatase Total Protein Albumin Globulin Albumin/Globulin Ratio Triglycerides Cholesterol LDL Cholesterol Direct HDL Cholesterol Vitamin B12 Folate TSH 3rd Generation Urine Color Yellow Urine Appearance Slight-cloudy Urine pH 5.5 Ur Specific [employer] >= 1.030 Urine Protein 30 H Urine Glucose (UA) Negative Urine Ketones Trace H Urine Blood Moderate H Urine Nitrate Negative Urine Bilirubin Small H Urine Urobilinogen 0.2 Ur Leukocyte Esterase Negative Urine RBC 5 - 10 H Urine WBC None Ur Epithelial Cells None Calcium Oxalate Crystal Few Blood Type Blood Type Confirm Antibody Screen BBK History Checked 08/10/18 08/10/18 08/10/18 22:00 23:45 23:45 WBC 4.2 L D RBC 4.69 Hgb 12.4 L D Hct 38.4 L MCV 81.9 MCH 26.4 MCHC 32.3 RDW 13.5 Plt Count 260 MPV 10.0 Neut % (Auto) 36.3 L Lymph % (Auto) 30.5 [place] % (Auto) 32.5 H Eos % (Auto) 0.2 L Baso % (Auto) 0.5 Lymph # (Auto) 1.3 [place] # (Auto) 1.4 H Eos # (Auto) 0.0 Baso # (Auto) 0.02 Absolute Neuts (auto) 1.51 Neutrophils % (Manual) Band Neutrophils % Lymphocytes % (Manual) Atypical Lymphs % Monocytes % (Manual) PT INR Sodium Potassium Chloride Carbon Dioxide Anion Gap BUN Creatinine Est GFR ( Amer) Est GFR (Non-Af Amer) POC Glucose (mg/dL) Random Glucose Hemoglobin A1c Calcium Phosphorus Magnesium Iron 65 TIBC 313 % Saturation 21 Transferrin Ferritin Total Bilirubin AST ALT Alkaline Phosphatase Total Protein Albumin Globulin Albumin/Globulin Ratio Triglycerides Cholesterol LDL Cholesterol Direct HDL Cholesterol Vitamin B12 Folate TSH 3rd Generation Urine Color Urine Appearance Urine pH Ur Specific [employer] Urine Protein Urine Glucose (UA) Urine Ketones Urine Blood Urine Nitrate Urine Bilirubin Urine Urobilinogen Ur Leukocyte Esterase Urine RBC Urine WBC Ur Epithelial Cells Calcium Oxalate Crystal Blood Type O POSITIVE Blood Type Confirm Antibody Screen Negative BBK History Checked No verified bt 08/10/18 08/11/18 08/11/18 23:45 04:40 04:40 WBC RBC Hgb Hct MCV MCH MCHC RDW Plt Count MPV Neut % (Auto) Lymph % (Auto) [place] % (Auto) Eos % (Auto) Baso % (Auto) Lymph # (Auto) [place] # (Auto) Eos # (Auto) Baso # (Auto) Absolute Neuts (auto) Neutrophils % (Manual) Band Neutrophils % Lymphocytes % (Manual) Atypical Lymphs % Monocytes % (Manual) PT INR Sodium 141 Potassium 4.8 Chloride 111 H Carbon Dioxide 20 L Anion Gap 16 BUN 30 H Creatinine 3.0 H Est GFR ( Amer) 27 Est GFR (Non-Af Amer) 22 POC Glucose (mg/dL) Random Glucose 87 Hemoglobin A1c 5.5 Calcium 9.0 Phosphorus Magnesium Iron TIBC % Saturation Transferrin 181.92 L Ferritin Total Bilirubin 0.3 AST 15 L D ALT 21 Alkaline Phosphatase 90 Total Protein 6.8 Albumin 4.0 Globulin 2.9 Albumin/Globulin Ratio 1.4 Triglycerides Cholesterol LDL Cholesterol Direct HDL Cholesterol Vitamin B12 Folate TSH 3rd Generation 2.09 Urine Color Urine Appearance Urine pH Ur Specific [employer] Urine Protein Urine Glucose (UA) Urine Ketones Urine Blood Urine Nitrate Urine Bilirubin Urine Urobilinogen Ur Leukocyte Esterase Urine RBC Urine WBC Ur Epithelial Cells Calcium Oxalate Crystal Blood Type Blood Type Confirm Antibody Screen BBK History Checked 08/11/18 08/11/18 08/11/18 04:40 04:40 04:40 WBC 4.0 L RBC 4.75 Hgb 12.7 L Hct 39.1 L MCV 82.3 MCH 26.7 MCHC 32.5 RDW 13.5 Plt Count 250 MPV 10.4 Neut % (Auto) Lymph % (Auto) [place] % (Auto) Eos % (Auto) Baso % (Auto) Lymph # (Auto) [place] # (Auto) Eos # (Auto) Baso # (Auto) Absolute Neuts (auto) Neutrophils % (Manual) Band Neutrophils % Lymphocytes % (Manual) Atypical Lymphs % Monocytes % (Manual) PT INR Sodium 143 Potassium 5.0 Chloride 113 H Carbon Dioxide 19 L Anion Gap 17 BUN 29 H Creatinine 2.6 H Est GFR ( Amer) 31 Est GFR (Non-Af Amer) 26 POC Glucose (mg/dL) Random Glucose 85 Hemoglobin A1c Calcium 9.0 Phosphorus 4.0 Magnesium 2.2 Iron TIBC % Saturation Transferrin Ferritin 312.0 Total Bilirubin 0.3 AST 15 L ALT 25 Alkaline Phosphatase 92 Total Protein 7.0 Albumin 4.1 Globulin 2.9 Albumin/Globulin Ratio 1.4 Triglycerides 158 Cholesterol 86 L LDL Cholesterol Direct 35 HDL Cholesterol 27 L Vitamin B12 289 Folate 9.3 TSH 3rd Generation Urine Color Urine Appearance Urine pH Ur Specific [employer] Urine Protein Urine Glucose (UA) Urine Ketones Urine Blood Urine Nitrate Urine Bilirubin Urine Urobilinogen Ur Leukocyte Esterase Urine RBC Urine WBC Ur Epithelial Cells Calcium Oxalate Crystal Blood Type Blood Type Confirm O POSITIVE Antibody Screen BBK History Checked 08/11/18 04:40 WBC RBC Hgb Hct MCV MCH MCHC RDW Plt Count MPV Neut % (Auto) Lymph % (Auto) [place] % (Auto) Eos % (Auto) Baso % (Auto) Lymph # (Auto) [place] # (Auto) Eos # (Auto) Baso # (Auto) Absolute Neuts (auto) Neutrophils % (Manual) Band Neutrophils % Lymphocytes % (Manual) Atypical Lymphs % Monocytes % (Manual) PT 12.7 H INR 1.14 Sodium Potassium Chloride Carbon Dioxide Anion Gap BUN Creatinine Est GFR ( Amer) Est GFR (Non-Af Amer) POC Glucose (mg/dL) Random Glucose Hemoglobin A1c Calcium Phosphorus Magnesium Iron TIBC % Saturation Transferrin Ferritin Total Bilirubin AST ALT Alkaline Phosphatase Total Protein Albumin Globulin Albumin/Globulin Ratio Triglycerides Cholesterol LDL Cholesterol Direct HDL Cholesterol Vitamin B12 Folate TSH 3rd Generation Urine Color Urine Appearance Urine pH Ur Specific [employer] Urine Protein Urine Glucose (UA) Urine Ketones Urine Blood Urine Nitrate Urine Bilirubin Urine Urobilinogen Ur Leukocyte Esterase Urine RBC Urine WBC Ur Epithelial Cells Calcium Oxalate Crystal Blood Type Blood Type Confirm Antibody Screen BBK History Checked
--- NOTE | 2018-08-11 16:49 | CON ---
DATE OF CONSULTATION: 08/11/2018 HISTORY OF PRESENT ILLNESS: This is a 53-year-old gentleman with history of traumatic brain injury, status post residual right upper extremity weakness, expressive aphasia, hypertension, who presented to the hospital with failure to thrive, progressive weakness, and diarrhea for the past week. He reports nonbloody loose bowel movement up to 5 BM a day over the last week. He also mentioned that he has some epigastric abdominal pain of lower intensity without radiation to any other part of the body, dull in nature, about 4/10. As his symptoms did not go away and he felt more weak every day, he came to [facility] for further management and medical advice. In the emergency room, he was found to be hypotensive and admitted to ICU for hypovolemic shock. No fever, no chills, no sweats, no nausea, and no vomiting. Of note, the patient did have colonoscopy 4 years ago, which as per the patient was without significant findings. Of note, in the emergency room, the patient had blood work, which revealed no lactic acidosis as well as no troponin leak, and after initial fluid resuscitation, his acute kidney injury substantially improved. 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 HOME MEDICATIONS: Tylenol, lisinopril, Lipitor, levetiracetam. FAMILY HISTORY: Noncontributory. SOCIAL HISTORY: No alcohol or illicit drug abuse. No tobacco smoking. REVIEW OF SYSTEMS: Review of 12 organ system other than mentioned in history of present illness is negative. PHYSICAL EXAMINATION: VITAL SIGNS: Temperature 97.9, heart rate 78, blood pressure 112/60, oxygen saturation 99% on room air. HEENT: ENT: Head and neck, atraumatic. LUNGS: Clear to auscultation bilaterally. HEART: Regular rhythm and rate, S1 and S2 normal. ABDOMEN: Soft, nontender, nondistended. MUSCULOSKELETAL: No C/C/E. NEURO: The patient moves all extremities spontaneously. SKIN: Moist. PSYCH: The patient is alert, awake, and oriented x3. LABORATORY DATA: Sodium 143, potassium 5, chloride 113, BUN 29, creatinine 2.6, down from 3, glucose 85, AST 15, ALT 25, total bilirubin 0.3. WBC 4, hemoglobin 12.7, platelet count 215. VBG yesterday showed lactic acid 0.9. INR 1.14. CURRENT MEDICATIONS: Lipitor, Protonix, normal saline at 125 mL/hour, vancomycin p.o., Flagyl, Keppra. CAT scan of the abdomen and pelvis revealed mural thickening of the right including hepatic flexure and proximal transverse colon consistent with nonspecific colitis, no additional abnormality. Head CT showed status post large left craniectomy with craniotomy. There is a mass effect with midline shift by 11 mm toward the right side, but without evidence of downward herniation, no intracranial mass or hemorrhage, no prior examination available for comparison at this time. ASSESSMENT AND PLAN: This is a 53-year-old gentleman, who presented to [facility] out of concern for hypovolemic shock. However, he quickly responded to IV fluids, and his acute kidney injury substantially improved. He did not have lactic acidosis, chest pain, or troponin leak. It appears that he is fluid resuscitated. I agree with vancomycin p.o. and Flagyl IV, septic workup including stool for Clostridium difficile, blood culture, urine culture and procal. GI consult is appreciated. We will get Neurology evaluation for putting forth plan related to his CT scan findings, which likely chronic and relate to prior traumatic brain injury. The patient however is alert, awake, and oriented, moving all extremities spontaneously and on command. We will continue with deep venous thrombosis and gastrointestinal prophylaxis, okay to downgrade to telemetry. ccm time 40 min Jose Roberto Toro MD [facility]
[2018-08-12 06:26] LABS: HEMOGLOBIN 11.7 g/dL (14.0-18.0); MEAN CELL VOLUME 81.5 fl (80.0-105.0); MEAN CORPUSCULAR HEMOGLOBIN 26.4 pg (25.0-35.0); MEAN CORPUSCULAR HGB CONC 32.4 g/dl (31.0-37.0); MEAN PLATELET VOLUME 9.9 fl (7.0-11.0); RBC 4.43 10^6/uL (3.5-6.1); RED CELL DISTRIBUTION WIDTH 13.5 % (11.5-14.5); WHITE BLOOD COUNT 4.3 10^3/uL (4.5-11.0)
[2018-08-12 06:49] LABS: ALB/GLOB RATIO 1.3 (1.1-1.8); ALBUMIN 3.4 g/dL (3.0-4.8); ALT/SGPT 21 U/L (7-56); AST/SGOT 13 U/L (17-59); BLOOD UREA NITROGEN 17 mg/dL (7-21); CALCIUM 8.6 mg/dL (8.4-10.5); GFR NON-AFRICAN AMERICAN 58
--- NOTE | 2018-08-12 09:03 | PN ---
DATE: 08/11/2018 SUBJECTIVE: I saw him in Intensive Care Unit, bed 3. He is sitting up in bed. He is actually much better than yesterday. He is talking better, the speech is better, he is more appropriate looking at me. No acute complaints of chest pain or shortness of breath. No abdominal pain. No pain. He almost feels like he is back to normal he tells me. His bowels are also moving a little bit better. OBJECTIVE: VITAL SIGNS: He has 97.9 temperature, 78 pulse, 112/60 blood pressure, 15 respiratory rate, 99% O2 sat on room air. HEENT: His head has a craniotomy with much of the skull is missing, that is why he wears a helmet. He is looking at me much better today than yesterday. Speech is a little bit better than yesterday. Throat is moist. NECK: Supple. HEART: Regular rate. LUNGS: Decreased breath sounds. ABDOMEN: Soft, positive bowel sounds. EXTREMITIES: No edema. MEDICATIONS: He is currently on Flagyl IV, Keppra, Lipitor, Protonix, IV fluids, vancomycin p.o. and Zestril. LABORATORY DATA: He has a 4 white count, 12.7 hemoglobin, 39.1 hematocrit with 250 platelets. Lactate was 0.9. His sodium is 143, potassium is 5, BUN is down to 29, creatinine is down to 2.6, GFR is up to 26, better, sugar is 85, hemoglobin A1c is 5.5, calcium 9, phosphorous 4, magnesium 2.2, iron 65. He has a total bili of 0.3, AST of 50, ALT of 25, alk phos 92, total protein is 7, triglycerides 158. TSH is 2.09. Urine was negative. ASSESSMENT AND PLAN: He has consults with GI, Renal, Infectious Disease and Neurology. Await their visit to the patient and their opinion need if he is improving. We will continue aggressive treatment and care on Rocco Lara. We will check his labs tomorrow, get him out of bed to chair. Arvind Armstrong DO [facility] # [id number] [facility]
[2018-08-12] MEDS: Sodium Chloride 0.9% 1,000 ML IV SCH ×3 (09:07→22:12)
--- NOTE | 2018-08-12 09:16 | CON ---
DATE: 08/11/2018 LOCATION: The patient is in bed, was seen earlier today in room 129, bed 3. CHIEF COMPLAINT: Change in mental status times several days. HISTORY OF PRESENT ILLNESS: This is a 53-year-old male with progression of mental status, worsening in the past one week. The patient had a fall, had a , however, in the last few days, he has been having a weakness and worsening of his mental status. This morning, he is able to answer questions somewhat; however, his speech is limited. He appears to be comfortable. He understands the questions. There have been no fevers reported. No chills reported. No chest pain or shortness of breath. No headaches are reported. PAST MEDICAL HISTORY: Significant for hyperlipidemia and hypertension. PAST SURGICAL HISTORY: There is [employer] surgery. ALLERGIES: THE PATIENT HAS NO KNOWN ALLERGIES. MEDICATIONS: At home revealed; Tylenol, Lipitor, levetiracetam. PHYSICAL EXAMINATION GENERAL: The patient is bed, nontoxic, appears to be comfortable. VITAL SIGNS: Temperature of 97.9, heart rate of 71, respiratory rate of 15, it was up to 36 earlier today, and blood pressure is 112/60. HEENT: Unremarkable. NECK: Supple. LUNGS: Decreased breath sounds. HEART: Normal S1 and S2. ABDOMEN: Soft and nontender. LABORATORY DATA: Noted. Reveals the white count of 4 and a hemoglobin of 12. Microbiology is negative. The stool for C. difficile is a negative toxin. Urine culture has mixed organisms. The patient had a chest x-ray, which was negative. CT scan of the abdomen which is consistent with colitis. The patient's creatinine is also 5.9. REVIEW OF ORDERS: Dr. Saleem Mackay's note is reviewed. Dr. Mert Boston's consultation is also reviewed. It states that the patient had a left frontal temporal craniotomy with a decompression in 2018 for an occult defect and has not had cranioplasty and a helmet for protection. Neurology assessment is toxic metabolic encephalopathy. Dr. Evangelista's consultation is also reviewed. It appears that the patient has diarrhea for the past as well. ASSESSMENT AND PLAN: A 53-year-old male who has had a craniotomy in 2018 and with hypertension, hyperlipidemia that was felt secondary to a head injury now admitted with a change of mental status and toxic metabolic encephalopathy with acute kidney injury, diarrhea, with negative blood cultures, negative chest x-ray, negative clostridium difficile, and negative urine analysis. No obvious source for infection. The patient is currently on Flagyl. The p.o. vancomycin will be discontinued since the clostridium difficile antigen and toxin are both negative. It is possible to have intracranial infection; however, at this point, without any fevers. The patient does not appear to toxic, we will discontinue the clostridium difficile therapy and watch the patient off of antibiotics. We will also discontinue the Flagyl. I will follow closely with you. We will order a HIV test because of disease. Haider Pimentel MD
--- NOTE | 2018-08-12 11:26 | CP.PCM.PN ---
<LesliebetzySabas mariscal - Last Filed: 08/12/18 11:22> Subjective - Date & Time of Evaluation Date of Evaluation: 08/12/18 Time of Evaluation: 07:45 - Subjective Subjective: PGY6 GI Fellow Progress Note Patient seen and examined bedside this morning. The patient states that he is feeling well and has no pain presently. Discussed case with nursing; passed solid stool today after one looser stool last night. No events overnight. 12 system ROS performed and negative except where stated Objective - Vital Signs/Intake and Output Vital Signs (last 24 hours): Temp Pulse Resp BP Pulse Ox 98.6 F 73 13 106/62 98 08/12/18 08:00 08/12/18 10:00 08/12/18 10:00 08/12/18 07:00 08/12/18 07:00 Intake and Output: 08/12/18 08/12/18 06:59 18:59 Intake Total 1600 Output Total 300 Balance 1300 - Medications Medications: Current Medications Atorvastatin Calcium (Lipitor) [address] [facility] Last Admin: 08/11/18 17:37 Dose: 20 mg Sodium Chloride (Sodium Chloride 0.9%) 1,000 mls @ 125 mls/hr IV .Q8H [facility] Last Admin: 08/12/18 09:07 Dose: 125 mls/hr Levetiracetam (Keppra) 1,[address] [facility] Last Admin: 08/12/18 09:07 Dose: 1,000 mg Lisinopril (Zestril) [address] [facility] Last Admin: 08/11/18 09:21 Dose: 10 mg Pantoprazole Sodium (Protonix Inj) [address] [facility] Last Admin: 08/12/18 09:07 Dose: 40 mg - Labs Labs: 08/12/18 05:18 08/12/18 05:18 PT 12.7 SECONDS (9.4-12.5) H 08/11/18 04:40 INR 1.14 08/11/18 04:40 APTT 34.6 Seconds (26.9-38.3) 08/10/18 12:45 - Constitutional Appears: Non-toxic, No Acute Distress, Other (pt wearing helmet) - Eye Exam Eye Exam: EOMI, PERRL - ENT Exam ENT Exam: Mucous Membranes Moist - Respiratory Exam Respiratory Exam: Clear to Ausculation Bilateral. absent: Rales, Rhonchi, Wheezes - Cardiovascular Exam Cardiovascular Exam: RRR, +S1, +S2 - GI/Abdominal Exam GI & Abdominal Exam: Soft, Normal Bowel Sounds. absent: Distended, Firm, Guarding, Rigid, Tenderness, Mass, Organomegaly - Extremities Exam Extremities Exam: Normal Inspection. absent: Pedal Edema - Neurological Exam Neurological Exam: Alert, Awake, Oriented x3 - Psychiatric Exam Psychiatric exam: Normal Affect, Normal Mood - Skin Skin Exam: Dry, Warm Assessment and Plan - Assessment and Plan (Free Text) Assessment: Patient is a 53yo male with PMHx significant for TBI with resultant expressive aphasia, HTN, hyperlipidemia who presented to the ED with altered mental status and diarrhea. -Acute colitis - cecum to transverse -TONO -HTN Plan: -C diff negative -TONO improved -Advance diet to altered GI diet, lactose free -Encourage ongoing antibiotic coverage for 7-10 days total for right sided colitis -Patient will benefit from colonoscopy in 6-8 weeks, once acute colitis resolved for further evaluation -OK for D/C from GI standpoint if tolerating diet <Mina Evangelista - Last Filed: 08/12/18 11:42> Objective - Vital Signs/Intake and Output Vital Signs (last 24 hours): Temp Pulse Resp BP Pulse Ox 98.6 F 73 13 106/62 98 08/12/18 08:00 08/12/18 10:00 08/12/18 10:00 08/12/18 07:00 08/12/18 07:00 Intake and Output: 08/12/18 08/12/18 06:59 18:59 Intake Total 1600 Output Total 300 Balance 1300 - Medications Medications: Current Medications Atorvastatin Calcium (Lipitor) [address] [facility] Last Admin: 08/11/18 17:37 Dose: 20 mg Sodium Chloride (Sodium Chloride 0.9%) 1,000 mls @ 125 mls/hr IV .Q8H [facility] Last Admin: 08/12/18 09:07 Dose: 125 mls/hr Levetiracetam (Keppra) 1,[address] [facility] Last Admin: 08/12/18 09:07 Dose: 1,000 mg Lisinopril (Zestril) [address] [facility] Last Admin: 08/11/18 09:21 Dose: 10 mg Pantoprazole Sodium (Protonix Inj) 40 mg IVP Q12 [facility] Last Admin: 08/12/18 09:07 Dose: 40 mg - Labs Labs: 08/12/18 05:18 08/12/18 05:18 PT 12.7 SECONDS (9.4-12.5) H 08/11/18 04:40 INR 1.14 08/11/18 04:40 APTT 34.6 Seconds (26.9-38.3) 08/10/18 12:45 Attending/Attestation - Attestation I have fully participated in the care of the patient.: Yes I have reviewed all pertinent clinical information, including history, physical exam and plan: Yes Notes (Text): 08/12/18 11:40 TBI, expressive aphasia HTN Acute renal insufficiency Diarrhea - colitis - Advance diet slowly as tolerated - Continue with antibiotic therapy to complete 14 day course - Awaiting stool study results - Creatinine improved, continue to monitor - Patient would benefit from outpatient colonoscopy evaluation 6-8 weeks following resolution of acute symptoms. Office contact information provided to patient, will sign off case. Please reconsult as necessary, thank you.
--- NOTE | 2018-08-12 11:46 | CP.PCM.PN ---
Subjective - Date & Time of Evaluation Date of Evaluation: 08/12/18 Time of Evaluation: 11:41 - Subjective Subjective: Nephrology Consultation Note Assessment: Stable Acute Kidney Injury (N17.9) likely due to GI fluid loss, hypotension: improved acute colitis hx of traumatic brain injury s/p craniotomy hx of HTN and hyperlipidemia metabolic acidosis Plan No acute need for renal replacement therapy at this time. Hypertension control with meds as ordered. Maintain hemodynamics stable. Avoid hypotension. Patient not on ACEI/ARB due to recent TONO Monitor Input/Output, daily weights and renal function with basic metabolic panel will lower IVF rate. will add sodium bicarb 650 bid Dose meds/antibiotics for improved GFR. Avoid fleets enema/magnesium based laxatives. Avoid nephrotoxins/NSAIDs/ iodinated contrast (unless needed emergently) Glycemic control Further work up for as per primary team Thanks for allowing me to participate in care of your patient. Will follow patient with you. Please call if any Qs. has d/w team Dr Raul Aguilar Office: [phone] Subjective: Noted events overnight. Patients feels okay. Denies chest pain, palpitation, shortness of breath, leg swelling. All other negative Physical Examination: General Appearance: Comfortable, in no acute respiratory distress, co-operative . Vitals reviewed and noted as below Head; wearing protective helmet ENT: no ulcers no thrush. Tongue is midline. Oropharynx: no rash or ulcers. EYES: Pupils are equal, round and reactive to light accommodation. Eye muscles and extraocular movement intact. Sclera is anicteric. Neck; supple no lymphadenopathy, no thyromegaly or bruit Lungs: Normal respiratory rate/effort. Breath sounds bilateral equal and clear Heart: Normal rate. s1s2 normal. No rub or gallop. Extremities: no edema. No varicose veins Neurological: Patient is alert, awake and oriented to person, place and time. has expressive aphasia Skin: Warm and dry. Normal turgor. No rash. Palpitation: Normal elasticity for age Abdomen: Abdomen is soft. Bowel sounds +. There is no abdominal tenderness, no guarding/rigidity no organomegaly Psych: normal insight and normal affect/mood MSK: no joint tenderness or swelling. Digits and nails normal, no deformity : kidney or bladder not palpable Labs/imaging reviewed. Past medical history, past surgical history, family history, social history, allergy reviewed and noted as below Family hx: no hx of CKD. Rest non-contributory Objective - Vital Signs/Intake and Output Vital Signs (last 24 hours): Temp Pulse Resp BP Pulse Ox 98.6 F 73 13 106/62 98 08/12/18 08:00 08/12/18 10:00 08/12/18 10:00 08/12/18 07:00 08/12/18 07:00 Intake and Output: 08/12/18 08/12/18 06:59 18:59 Intake Total 1600 Output Total 300 Balance 1300 - Medications Medications: Current Medications Atorvastatin Calcium (Lipitor) 20 mg PO DIN [facility] Last Admin: 08/11/18 17:37 Dose: 20 mg Sodium Chloride (Sodium Chloride 0.9%) 1,000 mls @ 125 mls/hr IV .Q8H [facility] Last Admin: 08/12/18 09:07 Dose: 125 mls/hr Levetiracetam (Keppra) 1,000 mg PO BID [facility] Last Admin: 08/12/18 09:07 Dose: 1,000 mg Lisinopril (Zestril) 10 mg PO DAILY [facility] Last Admin: 08/11/18 09:21 Dose: 10 mg Pantoprazole Sodium (Protonix Inj) 40 mg IVP Q12 [facility] Last Admin: 08/12/18 09:07 Dose: 40 mg - Labs Labs: 08/12/18 05:18 08/12/18 05:18 PT 12.7 SECONDS (9.4-12.5) H 08/11/18 04:40 INR 1.14 08/11/18 04:40 APTT 34.6 Seconds (26.9-38.3) 08/10/18 12:45
--- NOTE | 2018-08-12 11:58 | CP.PCM.CON ---
<Lucas Recio - Last Filed: 08/12/18 16:53> History of Present Illness - History of Present Illness History of Present Illness: Infectious Disease consult: 53-year-old male with past medical history of TBI with residual aphasia, and right-sided weakness presents to the ED with failure to thrive and weakness. As per prior chart and family patient has been more lethargic over the past week. They also stated that his speech is not at his baseline although he has aphasia. There was also complains of frequent diarrhea along with decreased appetite. Upon arriving to the ED patient did have a maroon color bowel movement and subsequently became hypotensive, tachycardic and dizzy. CT of the abdomen was performed and showed right-sided possible colitis. Infectious disease was consulted for IV antibiotics. 12 point ROS performed and negative other than stated above PMH: as above PSH: cranial surgeries x2 Meds: as per MAR Allergies: NKDA SHx: unobtainable FHx: denies Review of Systems - Review of Systems All systems: reviewed and no additional remarkable complaints except Past Patient History - Infectious Disease Hx of Infectious Diseases: None - Past Social History Smoking Status: Never Smoked - CARDIAC Hx Hypertension: Yes - PULMONARY Hx Respiratory Disorders: No - NEUROLOGICAL Other/Comment: .traumatic brain injury.BRAIN SUGERY - HEENT Hx HEENT Problems: No - RENAL Hx Chronic Kidney Disease: No - ENDOCRINE/METABOLIC Hx Endocrine Disorders: No - HEMATOLOGICAL/ONCOLOGICAL Hx Blood Disorders: No - INTEGUMENTARY Hx Dermatological Problems: No - MUSCULOSKELETAL/RHEUMATOLOGICAL Hx Falls: Yes - GASTROINTESTINAL Hx Gastrointestinal Disorders: No - GENITOURINARY/GYNECOLOGICAL Hx Genitourinary Disorders: No - PSYCHIATRIC Hx Psychophysiologic Disorder: No Hx Substance Use: No - SURGICAL HISTORY Hx Surgeries: Yes Other/Comment: craniectomy,craniotomy.BRAIN SURGERY - ANESTHESIA Hx Anesthesia: No Hx Anesthesia Reactions: No Hx Malignant Hyperthermia: No Meds Allergies/Adverse Reactions: Allergies Allergy/AdvReac Type Severity Reaction Status Date / Time No Known Allergies Allergy Verified 08/10/18 12:04 - Medications Medications: Current Medications Atorvastatin Calcium (Lipitor) 20 mg PO DIN [facility] Last Admin: 08/11/18 17:37 Dose: 20 mg Sodium Chloride (Sodium Chloride 0.9%) 1,000 mls @ 75 mls/hr IV .[id number] [facility] Stop: 08/14/18 11:46 Levetiracetam (Keppra) 1,000 mg PO BID [facility] Last Admin: 08/12/18 09:07 Dose: 1,000 mg Lisinopril (Zestril) 10 mg PO DAILY [facility] Last Admin: 08/11/18 09:21 Dose: 10 mg Pantoprazole Sodium (Protonix Inj) 40 mg IVP Q12 [facility] Last Admin: 08/12/18 09:07 Dose: 40 mg Physical Exam - Constitutional Appears: No Acute Distress - Head Exam Head Exam: ATRAUMATIC, NORMOCEPHALIC - Eye Exam Eye Exam: EOMI, PERRL - ENT Exam ENT Exam: Mucous Membranes Moist - Respiratory Exam Respiratory Exam: Clear to Auscultation Bilateral. absent: Rales, Wheezes - Cardiovascular Exam Cardiovascular Exam: REGULAR RHYTHM, +S1, +S2 - GI/Abdominal Exam GI & Abdominal Exam: Normal Bowel Sounds, Soft. absent: Tenderness - Extremities Exam Extremities exam: Negative for: calf tenderness, pedal edema - Neurological Exam Neurological exam: Alert, CN II-XII Intact, Oriented x3 - Psychiatric Exam Psychiatric exam: Normal Mood - Skin Skin Exam: Dry, Warm Results - Vital Signs Recent Vital Signs: Last Vital Signs Temp 98.6 F 08/12/18 08:00 Pulse 73 08/12/18 10:00 Resp 13 08/12/18 10:00 BP 106/62 08/12/18 07:00 Pulse Ox 98 08/12/18 07:00 - Labs Result Diagrams: 08/12/18 05:18 08/12/18 05:18 Labs: Laboratory Results - last 24 hr 08/11/18 08/11/18 08/11/18 04:40 04:40 04:40 WBC RBC Hgb Hct MCV MCH MCHC RDW Plt Count MPV Sodium Potassium Chloride Carbon Dioxide Anion Gap BUN Creatinine Est GFR ( Amer) Est GFR (Non-Af Amer) Random Glucose Hemoglobin A1c 5.5 Calcium Transferrin 181.92 L Ferritin 312.0 Total Bilirubin AST ALT Alkaline Phosphatase Total Protein Albumin Globulin Albumin/Globulin Ratio Vitamin B12 289 Folate 9.3 08/12/18 08/12/18 05:18 05:18 WBC 4.3 L RBC 4.43 Hgb 11.7 L Hct 36.1 L MCV 81.5 MCH 26.4 MCHC 32.4 RDW 13.5 Plt Count 230 MPV 9.9 Sodium 143 Potassium 4.5 Chloride 114 H Carbon Dioxide 18 L Anion Gap 15 BUN 17 Creatinine 1.3 Est GFR ( Amer) > 60 Est GFR (Non-Af Amer) 58 Random Glucose 84 Hemoglobin A1c Calcium 8.6 Transferrin Ferritin Total Bilirubin 0.2 AST 13 L ALT 21 Alkaline Phosphatase 74 Total Protein 6.0 Albumin 3.4 Globulin 2.6 Albumin/Globulin Ratio 1.3 Vitamin B12 Folate Assessment & Plan - Assessment and Plan (Free Text) Assessment: 1. Sepsis secondary to R sided possible colitis 2. Acute renal insufficiency 3. Traumatic brain injury with residual right upper extremity weakness and aphasia 4. Hypertension 5. Diarrhea CT of the abdomen showed right-sided colitis D/c vancomycin and Flagyl as the c diff is neg, will monitor off abx Septic work-up including C. difficile has been negative Follow-up with gastroenterology recommendations Follow-up with neurology recommendations Await stool cultures Cont to monitor for any changes Case and plan to be reviewed and discussed with Dr. Pimentel. <Haider Pimentel - Last Filed: 08/12/18 16:55> Meds - Medications Medications: Current Medications Atorvastatin Calcium (Lipitor) 20 mg PO DIN [facility] Last Admin: 08/11/18 17:37 Dose: 20 mg Sodium Chloride (Sodium Chloride 0.9%) 1,000 mls @ 75 mls/hr IV .[id number] [facility] Stop: 08/14/18 11:46 Levetiracetam (Keppra) 1,000 mg PO BID [facility] Last Admin: 08/12/18 09:07 Dose: 1,000 mg Lisinopril (Zestril) 10 mg PO DAILY [facility] Last Admin: 08/11/18 09:21 Dose: 10 mg Pantoprazole Sodium (Protonix Ec Tab) 40 mg PO Q12 [facility] Results - Vital Signs Recent Vital Signs: Last Vital Signs Temp 98.8 F 08/12/18 12:00 Pulse 65 08/12/18 12:00 Resp 14 08/12/18 11:01 BP 116/69 08/12/18 12:00 Pulse Ox 100 08/12/18 12:00 - Labs Result Diagrams: 08/12/18 05:18 08/12/18 05:18 Labs: Laboratory Results - last 24 hr 05/08/2508/12/18 08/12/18 04:40 05:18 05:18 WBC 4.3 L RBC 4.43 Hgb 11.7 L Hct 36.1 L MCV 81.5 MCH 26.4 MCHC 32.4 RDW 13.5 Plt Count 230 MPV 9.9 Sodium 143 Potassium 4.5 Chloride 114 H Carbon Dioxide 18 L Anion Gap 15 BUN 17 Creatinine 1.3 Est GFR ( Amer) > 60 Est GFR (Non-Af Amer) 58 Random Glucose 84 Calcium 8.6 Total Bilirubin 0.2 AST 13 L ALT 21 Alkaline Phosphatase 74 Total Protein 6.0 Albumin 3.4 Globulin 2.6 Albumin/Globulin Ratio 1.3 IgA 122 Tiss Transglutamin IgA 1 Celiac Disease Interp See note Attending/Attestation - Attestation I have personally seen and examined this patient.: Yes I have fully participated in the care of the patient.: Yes I have reviewed all pertinent clinical information: Yes
[2018-08-12] MEDS: Pantoprazole 40 mg EC Tab PO SCH (22:11)
--- NOTE | 2018-08-13 02:43 | DS ---
HISTORY OF PRESENT ILLNESS: He is doing much better. He is clinically improved. He is talking much better, feeling much better. MEDICATIONS: He is on Keppra, Lipitor, Protonix, IV fluids, and Zestril. He is actually on liquid diet. I am waiting for GI to increase his diet, also GI stopped his Flagyl and Cipro, so he is off of antibiotics. Infectious Disease did not see him. PHYSICAL EXAMINATION: VITAL SIGNS: 98.6 temp, 73 pulse, 106/52 blood pressure, 22 respiratory rate, and 98% O2 sat. HEENT: Head is atraumatic and normocephalic. HEART: Regular rate. LUNGS: Decreased breath sounds. ABDOMEN: Soft. EXTREMITIES: No edema. Right-sided weakness. LABORATORY DATA: He has a white count of 4.3, hemoglobin of 11.7, hematocrit of 36.1, and platelets of 230. INR is 1.14. He has sodium 143, potassium 4.5, BUN is down to 17, which is great, creatinine is down to 1.3 which is great, and GFR is 58. Kidneys are much improved. Sugar is 84. Calcium is 8.6. Total bili is 0.2, AST is 13, ALT is 21, alk phos is 24, and total protein is 6. ASSESSMENT AND PLAN: He had gastrointestinal bleed, colitis, history of brain surgery, and acute kidney injury. I am hoping I could possibly discharge him today. I am waiting for physical therapy to recommend what their thoughts are and if everything is okay hopefully could discharge him later, if not, we will make a decision definitely improved. Arvind Armstrong DO MTDJulissa
[2018-08-13] MEDS: Sodium Chloride 0.9% 1,000 ML IV SCH (05:29)
[2018-08-13 07:56] LABS: BLOOD UREA NITROGEN 12 mg/dL (7-21); CALCIUM 8.3 mg/dL (8.4-10.5); GFR NON-AFRICAN AMERICAN > 60
[2018-08-13] MEDS: Pantoprazole 40 mg EC Tab PO SCH ×2 (10:20→22:21)
--- NOTE | 2018-08-13 12:07 | CP.PCM.PN ---
Subjective - Date & Time of Evaluation Date of Evaluation: 08/13/18 Time of Evaluation: 12:06 - Subjective Subjective: Nephrology Consultation Note Assessment: Stable Acute Kidney Injury (N17.9) likely due to GI fluid loss, hypotension: improved acute colitis hx of traumatic brain injury s/p craniotomy hx of HTN and hyperlipidemia metabolic acidosis Plan No acute need for renal replacement therapy at this time. Hypertension control with meds as ordered. Maintain hemodynamics stable. Avoid hypotension. Patient not on ACEI/ARB due to recent TONO and low BP Monitor Input/Output, daily weights and renal function with basic metabolic panel will add sodium bicarb 650 bid Dose meds/antibiotics for improved GFR. Avoid nephrotoxins/NSAIDs/ iodinated c ontrast (unless needed emergently) Glycemic control Further work up for as per primary team Thanks for allowing me to participate in care of your patient. Will follow patient with you. Please call if any Qs. has d/w team Dr Raul Aguilar Office: [phone] Subjective: Noted events overnight. Patients feels okay. Denies chest pain, palpitation, shortness of breath, leg swelling. All other negative Physical Examination: General Appearance: Comfortable, in no acute respiratory distress, co-operative . Vitals reviewed and noted as below Head; wearing protective helmet ENT: no ulcers no thrush. Tongue is midline. Oropharynx: no rash or ulcers. EYES: Pupils are equal, round and reactive to light accommodation. Eye muscles and extraocular movement intact. Sclera is anicteric. Neck; supple no lymphadenopathy, no thyromegaly or bruit Lungs: Normal respiratory rate/effort. Breath sounds bilateral equal and clear Heart: Normal rate. s1s2 normal. No rub or gallop. Extremities: no edema. No varicose veins Neurological: Patient is alert, awake and oriented to person, place and time. has expressive aphasia Skin: Warm and dry. Normal turgor. No rash. Palpitation: Normal elasticity for age Abdomen: Abdomen is soft. Bowel sounds +. There is no abdominal tenderness, no guarding/rigidity no organomegaly Psych: normal insight and normal affect/mood MSK: no joint tenderness or swelling. Digits and nails normal, no deformity : kidney or bladder not palpable Labs/imaging reviewed. Past medical history, past surgical history, family history, social history, allergy reviewed and noted as below Family hx: no hx of CKD. Rest non-contributory Objective - Vital Signs/Intake and Output Vital Signs (last 24 hours): Temp Pulse Resp BP Pulse Ox 98.1 F 87 20 105/67 97 08/13/18 06:00 08/13/18 06:00 08/13/18 06:00 08/13/18 06:00 08/13/18 06:00 Intake and Output: 08/13/18 08/13/18 06:59 18:59 Intake Total 1020 Balance 1020 - Medications Medications: Current Medications Atorvastatin Calcium (Lipitor) 20 mg PO DIN [facility] Last Admin: 08/12/18 17:30 Dose: 20 mg Levetiracetam (Keppra) 1,000 mg PO BID [facility] Last Admin: 08/13/18 10:20 Dose: 1,000 mg Lisinopril (Zestril) 10 mg PO DAILY [facility] Last Admin: 08/11/18 09:21 Dose: 10 mg Pantoprazole Sodium (Protonix Ec Tab) 40 mg PO Q12 [facility] Last Admin: 08/13/18 10:20 Dose: 40 mg - Labs Labs: 08/12/18 05:18 08/13/18 07:00 PT 12.7 SECONDS (9.4-12.5) H 08/11/18 04:40 INR 1.14 08/11/18 04:40 APTT 34.6 Seconds (26.9-38.3) 08/10/18 12:45
--- NOTE | 2018-08-13 23:07 | PN ---
DATE: 08/13/2018 SUBJECTIVE: The patient is in bed, in no acute distress, nontoxic. PHYSICAL EXAMINATION: VITAL SIGNS: Temperature is 98, blood pressure is 120/70, respiratory rate of 20, heart rate of 87. HEENT: Unremarkable. NECK: Supple. LUNGS: Have decreased breath sounds. HEART: Normal S1, S2. ABDOMEN: Soft. LABORATORY EXAMINATION: Reveals a white count of 4.3, hemoglobin is 11. is noted. Immunology is noted. Serology is reviewed. Microbiology reveals the blood cultures have no growth and urine cultures with multiple specimen species contamination. C. difficile antigen and toxin are negative. Review of orders reveals the patient to be off of antibiotics. 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 The patient has not had any fevers during this hospitalization. The patient's white count is normal. There is no evidence of infection at this time. We will await for stool cultures and off of antibiotics. Haider Pimentel MD
--- NOTE | 2018-08-14 03:18 | DS ---
HISTORY OF PRESENT ILLNESS: He is resting comfortably in his room. He is doing much better. He is improved greatly. MEDICATIONS: He is on Keppra, Lipitor, Protonix, IV fluids, and Zestril. PHYSICAL EXAMINATION: VITAL SIGNS: 98.1 temp, 87 pulse, 105/67 blood pressure, 20 respiratory rate, and 97% O2 sat on room air. HEENT: Head is traumatic. He has got a helmet on because of his traumatic brain injury and surgery. He is alert. He is talking a little bit each day better and better. HEART: Regular rate. LUNGS: Decreased breath sounds. ABDOMEN: Soft. EXTREMITIES: No edema. Physical Therapy saw him and states he needed [facility]. I was hoping may be [facility] or [facility] has other plans for him. LABORATORY DATA: He has a 4.3 white count, 11.7 hemoglobin, and 230 platelets. He has a sodium 142, potassium 4.3, BUN is 12, creatinine 1.2 better, GFR is 60, sugar is 92, calcium is 8.3, phosphorous 2.8, and magnesium 1.6. AST is 13, ALT is 21, and alk phos is 74. TSH 2.09. Folate was 9.3 and vitamin B12 was 289. ASSESSMENT AND PLAN: He did well while he is here, I am hoping for discharge today. He can eat now. He came in with a colitis type of pictures and altered GI hepatic diet and I called in case management to help us with discharge to [facility], which is recommended by Physical Therapy and he had GI bleed, colitis type picture, status post history of TBI, expressive aphasia, and he definitely improves. Arvind Armstrong DO MTDD
[2018-08-14] MEDS: Pantoprazole 40 mg EC Tab PO SCH ×2 (10:29→21:24)
--- NOTE | 2018-08-14 14:20 | CP.PCM.PN ---
Subjective - Date & Time of Evaluation Date of Evaluation: 08/14/18 Time of Evaluation: 14:20 - Subjective Subjective: Nephrology Consultation Note Assessment: Stable Acute Kidney Injury (N17.9) likely due to GI fluid loss, hypotension: improved acute colitis hx of traumatic brain injury s/p craniotomy hx of HTN and hyperlipidemia metabolic acidosis Plan No acute need for renal replacement therapy at this time. Hypertension control with meds as ordered. Maintain hemodynamics stable. Avoid hypotension. Patient not on ACEI/ARB due to recent TONO and low BP. can give if BP high Monitor Input/Output, daily weights and renal function with basic metabolic panel supplement lytes as needed Dose meds/antibiotics for improved GFR. Avoid nephrotoxins/NSAIDs/ iodinated contrast (unless needed emergently) Glycemic control Further work up for as per primary team Thanks for allowing me to participate in care of your patient. Will follow patient with you. Please call if any Qs. has d/w team Dr Raul Aguilar Office: [phone] Subjective: Noted events overnight. Patients feels okay. Denies chest pain, palpitation, shortness of breath, leg swelling. All other negative Physical Examination: General Appearance: Comfortable, in no acute respiratory distress, co-operative . Vitals reviewed and noted as below Head; wearing protective helmet ENT: no ulcers no thrush. Tongue is midline. Oropharynx: no rash or ulcers. EYES: Pupils are equal, round and reactive to light accommodation. Eye muscles and extraocular movement intact. Sclera is anicteric. Neck; supple no lymphadenopathy, no thyromegaly or bruit Lungs: Normal respiratory rate/effort. Breath sounds bilateral equal and clear Heart: Normal rate. s1s2 normal. No rub or gallop. Extremities: no edema. No varicose veins Neurological: Patient is alert, awake and oriented to person, place and time. has expressive aphasia Skin: Warm and dry. Normal turgor. No rash. Palpitation: Normal elasticity for age Abdomen: Abdomen is soft. Bowel sounds +. There is no abdominal tenderness, no guarding/rigidity no organomegaly Psych: normal insight and normal affect/mood MSK: no joint tenderness or swelling. Digits and nails normal, no deformity : kidney or bladder not palpable Labs/imaging reviewed. Past medical history, past surgical history, family history, social history, allergy reviewed and noted as below Family hx: no hx of CKD. Rest non-contributory Objective - Vital Signs/Intake and Output Vital Signs (last 24 hours): Temp Pulse Resp BP Pulse Ox 98 F 80 18 100/66 99 08/14/18 06:00 08/14/18 06:00 08/14/18 06:00 08/14/18 06:00 08/14/18 06:00 Intake and Output: 08/14/18 08/14/18 06:59 18:59 Intake Total 1200 Output Total 4 Balance 1196 - Medications Medications: Current Medications Atorvastatin Calcium (Lipitor) 20 mg PO DIN [facility] Last Admin: 08/13/18 17:22 Dose: 20 mg Levetiracetam (Keppra) 1,000 mg PO BID [facility] Last Admin: 08/14/18 10:29 Dose: 1,000 mg Lisinopril (Zestril) 10 mg PO DAILY [facility] Last Admin: 08/11/18 09:21 Dose: 10 mg Pantoprazole Sodium (Protonix Ec Tab) 40 mg PO Q12 [facility] Last Admin: 08/14/18 10:29 Dose: 40 mg - Labs Labs: 08/12/18 05:18 08/13/18 07:00 PT 12.7 SECONDS (9.4-12.5) H 08/11/18 04:40 INR 1.14 08/11/18 04:40 APTT 34.6 Seconds (26.9-38.3) 08/10/18 12:45
--- NOTE | 2018-08-14 18:44 | PN ---
DATE: 08/14/2018 SUBJECTIVE: The patient is in bed in no acute distress, nontoxic. PHYSICAL EXAMINATION: VITAL SIGNS: Temperature is 97, blood pressure is 106/70, respiratory rate of 20, heart rate of 73. HEENT: Unremarkable. NECK: Supple. LUNGS: Have decreased breath sounds. HEART: Normal S1, S2. ABDOMEN: Soft. LABORATORY EXAMINATION: Reviewed. Microbiology is reviewed. Review of orders reveals the patient to be off of antibiotics. ASSESSMENT AND PLAN: This is a 53-year-old male with sepsis, right-sided possible colitis, acute kidney injury, traumatic brain injury with residual right-sided right upper extremity weakness and aphasia, hypertension, diarrhea, currently off of antibiotics. The patient is stable and no evidence of infection. The patient's stool cultures shows no Salmonella, no Shigella or Campylobacter isolated and if diarrhea recurs or should have further workup with Gastroenterology. Haider Pimentel MD
--- NOTE | 2018-08-15 01:44 | DS ---
HISTORY OF PRESENT ILLNESS: I am hoping he can leave today and go to [facility]. He is presently improving. He is comfortable, more appropriate. PHYSICAL EXAMINATION: VITAL SIGNS: He has 98 temp, 80 pulse, 100/66 blood pressure, 18 respiratory rate, and 99% O2 sat on room air. HEENT: Head has trauma, nothing new. He had a craniotomy, he wears a helmet. Throat is moist. NECK: Supple. HEART: Regular rate. LUNGS: Decreased breath sounds. ABDOMEN: Soft. EXTREMITIES: No edema. MEDICATIONS: He is currently on Keppra, Lipitor, Protonix, and Zestril. He is off the IV fluids. LABORATORY DATA: A 4.3 white count, 11.7 hemoglobin, and 230 platelets that was on 08/12/2018. Sodium 142, potassium 4.3, BUN is 12, creatinine 1.2, GFR is greater than 60, and sugar is 92 that was also on 08/13/2018. ASSESSMENT AND PLAN: He is being seen by Infectious Disease, Renal, and Gastrointestinal. He had sepsis right-sided possible colitis, acute kidney injury and traumatic brain injury history. I am hoping that we can discharge him to a [facility] as per social worker and insurance. We will continue the treatment and care until he can be discharged. Arvind Armstrong DO
[2018-08-15] MEDS: Pantoprazole 40 mg EC Tab PO SCH ×2 (09:10→21:21)
--- NOTE | 2018-08-15 10:51 | CP.PCM.PN ---
Subjective - Date & Time of Evaluation Date of Evaluation: 08/15/18 Time of Evaluation: 10:51 - Subjective Subjective: Nephrology Consultation Note Assessment: Stable Acute Kidney Injury (N17.9) likely due to GI fluid loss, hypotension: improved acute colitis hx of traumatic brain injury s/p craniotomy hx of HTN and hyperlipidemia metabolic acidosis Plan No acute need for renal replacement therapy at this time. Hypertension control with meds as ordered. Maintain hemodynamics stable. Avoid hypotension. Patient not on ACEI/ARB due to recent TONO and low BP. can give if BP high Monitor Input/Output, daily weights and renal function with basic metabolic panel supplement lytes as needed Dose meds/antibiotics for improved GFR. Glycemic control Further work up for as per primary team d.c planning. stable from renal perspective Thanks for allowing me to participate in care of your patient. Will follow patient with you. Please call if any Qs. has d/w team Dr Raul Aguilar Office: [phone] Subjective: Noted events overnight. Patients feels okay. Denies chest pain, palpitation, shortness of breath, leg swelling. All other negative Physical Examination: General Appearance: Comfortable, in no acute respiratory distress, co-operative . Vitals reviewed and noted as below Head; wearing protective helmet ENT: no ulcers no thrush. Tongue is midline. Oropharynx: no rash or ulcers. EYES: Pupils are equal, round and reactive to light accommodation. Eye muscles and extraocular movement intact. Sclera is anicteric. Neck; supple no lymphadenopathy, no thyromegaly or bruit Lungs: Normal respiratory rate/effort. Breath sounds bilateral equal and clear Heart: Normal rate. s1s2 normal. No rub or gallop. Extremities: no edema. No varicose veins Neurological: Patient is alert, awake and oriented to person, place and time. has expressive aphasia Skin: Warm and dry. Normal turgor. No rash. Palpitation: Normal elasticity for age Abdomen: Abdomen is soft. Bowel sounds +. There is no abdominal tenderness, no guarding/rigidity no organomegaly Psych: normal insight and normal affect/mood MSK: no joint tenderness or swelling. Digits and nails normal, no deformity : kidney or bladder not palpable Labs/imaging reviewed. Past medical history, past surgical history, family history, social history, allergy reviewed and noted as below Family hx: no hx of CKD. Rest non-contributory Objective - Vital Signs/Intake and Output Vital Signs (last 24 hours): Temp Pulse Resp BP Pulse Ox 98.2 F 65 20 105/68 65 L 08/15/18 06:00 08/15/18 06:00 08/15/18 06:00 08/15/18 06:00 08/15/18 06:00 Intake and Output: 08/15/18 08/15/18 06:59 18:59 Intake Total 685 Balance 685 - Medications Medications: Current Medications Atorvastatin Calcium (Lipitor) 20 mg PO DIN [facility] Last Admin: 08/14/18 18:39 Dose: 20 mg Levetiracetam (Keppra) 1,000 mg PO BID [facility] Last Admin: 08/15/18 09:09 Dose: 1,000 mg Lisinopril (Zestril) 10 mg PO DAILY [facility] Last Admin: 08/11/18 09:21 Dose: 10 mg Pantoprazole Sodium (Protonix Ec Tab) 40 mg PO Q12 [facility] Last Admin: 08/15/18 09:10 Dose: 40 mg - Labs Labs: 08/12/18 05:18 08/13/18 07:00 PT 12.7 SECONDS (9.4-12.5) H 08/11/18 04:40 INR 1.14 08/11/18 04:40 APTT 34.6 Seconds (26.9-38.3) 08/10/18 12:45
[2018-08-15 12:43] VITALS: RESP 18
--- NOTE | 2018-08-15 20:33 | PN ---
DATE: 08/15/2018 SUBJECTIVE: The patient seen earlier today. He is comfortable. No fevers and chills. No nausea. PHYSICAL EXAMINATION: VITAL SIGNS: On exam, temperature is 98, blood pressure is 102/60, respiratory rate of 18, heart rate of 71. HEENT: Examination of HEENT is unremarkable. NECK: Supple. LUNGS: Have decreased breath sounds. HEART: Normal S1, S2. ABDOMEN: Soft. LABORATORY DATA: Laboratory examination reveals a white count of 4.3, hemoglobin of 11, BUN of 12, creatinine of 1.2. Urinalysis is noted. C. diff antigen was negative, antibodies negative. Stool cultures are negative. Review of orders reveals the patient to be off of antibiotics. ASSESSMENT AND PLAN: This is a 53-year-old with sepsis, right-sided possible colitis, acute kidney injury, traumatic brain injury, residual right-sided weakness and aphasia, hypertension, diarrhea, currently now off of antibiotics, afebrile. The patient is at risk for developing nosocomial infections. Haider Pimentel MD
--- NOTE | 2018-08-16 03:10 | DS ---
HISTORY OF PRESENT ILLNESS: This is my fourth day doing a discharge summary. I understand there is a lot of issues with his insurance and where he can be placed for retirement and possibly subacute rehab. I know case management and child protective services social worker are working diligently to help him, I appreciate that. PHYSICAL EXAMINATION: VITAL SIGNS: He has a 98.2 temp, 65 pulse, 105/68 blood pressure, 20 respiratory rate, and 95% O2 sat. HEENT: Head is traumatic. He had a bad traumatic brain injury with looks like his brain is missing. He is wearing a helmet. GENERAL: He is alert and comfortable. He has no acute distress. No chest pain. No shortness of breath. No abdominal pain. He is very comfortable and in good spirits. HEART: Regular rate. LUNGS: Decreased breath sounds, but clear. ABDOMEN: Soft. EXTREMITIES: No edema. LABORATORY DATA: He has not had labs because we being discharged and the last labs on the 08/13/2018 were fine. MEDICATIONS: He is currently on Keppra, Lipitor, Protonix, and Zestril. ASSESSMENT AND PLAN: He is being seen by Infectious Disease and Renal. He is doing quite well, just awaiting for a place we could put in and we will keep an eye on him. As per child protective services social worker and case management who were working quite harder getting into a facility. Arvind Armstrong DO MTDD
[2018-08-16 06:13] VITALS: O2SAT 96
[2018-08-16] MEDS: Pantoprazole 40 mg EC Tab PO SCH (09:39)
--- NOTE | 2018-08-16 12:56 | CP.PCM.PN ---
Subjective - Date & Time of Evaluation Date of Evaluation: 08/16/18 Time of Evaluation: 12:55 - Subjective Subjective: Nephrology Consultation Note Assessment: Stable Acute Kidney Injury (N17.9) likely due to GI fluid loss, hypotension: improved acute colitis hx of traumatic brain injury s/p craniotomy hx of HTN and hyperlipidemia metabolic acidosis Plan No acute need for renal replacement therapy at this time. Hypertension control with meds as ordered. Maintain hemodynamics stable. Avoid hypotension. Patient not on ACEI/ARB due to recent TONO and low BP. can give if BP high Monitor Input/Output, daily weights and renal function with basic metabolic panel supplement lytes as needed Dose meds/antibiotics for improved GFR. Glycemic control Further work up for as per primary team d.c planning. stable from renal perspective Thanks for allowing me to participate in care of your patient. Will follow patient with you. Please call if any Qs. has d/w team Dr Raul Aguilar Office: [phone] Subjective: Noted events overnight. Patients feels okay. Denies chest pain, palpitation, shortness of breath, leg swelling. denies diarrhoea All other negative Physical Examination: General Appearance: Comfortable, in no acute respiratory distress, co-operative . Vitals reviewed and noted as below Head; wearing protective helmet ENT: no ulcers no thrush. Tongue is midline. Oropharynx: no rash or ulcers. EYES: Pupils are equal, round and reactive to light accommodation. Eye muscles and extraocular movement intact. Sclera is anicteric. Neck; supple no lymphadenopathy, no thyromegaly or bruit Lungs: Normal respiratory rate/effort. Breath sounds bilateral equal and clear Heart: Normal rate. s1s2 normal. No rub or gallop. Extremities: no edema. No varicose veins Neurological: Patient is alert, awake and oriented to person, place and time. has expressive aphasia Skin: Warm and dry. Normal turgor. No rash. Palpitation: Normal elasticity for age Abdomen: Abdomen is soft. Bowel sounds +. There is no abdominal tenderness, no guarding/rigidity no organomegaly Psych: normal insight and normal affect/mood MSK: no joint tenderness or swelling. Digits and nails normal, no deformity : kidney or bladder not palpable Labs/imaging reviewed. Past medical history, past surgical history, family history, social history, allergy reviewed and noted as below Family hx: no hx of CKD. Rest non-contributory Objective - Vital Signs/Intake and Output Vital Signs (last 24 hours): Temp Pulse Resp BP Pulse Ox 98.1 F 70 18 102/68 96 08/16/18 12:00 08/16/18 12:00 08/16/18 12:00 08/16/18 12:00 08/16/18 06:00 Intake and Output: 08/16/18 08/16/18 06:59 18:59 Intake Total 2400 Balance 2400 - Medications Medications: Current Medications Atorvastatin Calcium (Lipitor) 20 mg PO DIN [facility] Last Admin: 08/15/18 17:15 Dose: 20 mg Levetiracetam (Keppra) 1,000 mg PO BID [facility] Last Admin: 08/16/18 09:39 Dose: 1,000 mg Lisinopril (Zestril) 10 mg PO DAILY [facility] Last Admin: 08/11/18 09:21 Dose: 10 mg Pantoprazole Sodium (Protonix Ec Tab) 40 mg PO Q12 [facility] Last Admin: 08/16/18 09:39 Dose: 40 mg - Labs Labs: 08/12/18 05:18 08/13/18 07:00 PT 12.7 SECONDS (9.4-12.5) H 08/11/18 04:40 INR 1.14 08/11/18 04:40 APTT 34.6 Seconds (26.9-38.3) 08/10/18 12:45
--- NOTE | 2018-08-16 13:35 | PN ---
DATE: 08/16/2018 SUBJECTIVE: I saw him resting comfortably in bed this morning. He is alert. He slept well. He is eating well. No other nausea, vomiting or any other complaints. No chest pain. No palpitation. No shortness of breath. PHYSICAL EXAMINATION: VITAL SIGNS: he has 98.2 temp, 75 pulse, 114/71 blood pressure, 18 respiratory rate, 96% O2 saturation on room air. HEENT: Head is traumatic with traumatic brain injury and surgery. Wears a helmet. HEART: Regular rate. LUNGS: Decreased breath sounds, but clear. ABDOMEN: Soft. EXTREMITIES: No edema. NEUROLOGIC: He is talking much better than when he came in. MEDICATIONS: He is on his Keppra, Lipitor, Protonix, and Zestril. LABORATORY DATA: Last labs on 08/12/2018, he is doing well. We have been trying to discharge him for a few days now. I understand that there is an insurance issue where he can go. He is being seen by Renal and Infectious Disease. He had a right-sided colitis at one time, acute kidney injury, traumatic brain injury, residual right-sided weakness, hypertension. He is off antibiotics, awaiting for his insurance in the hospital to arrange for a permanent placement. I understand now for [facility] to [facility]. Continue aggressive treatment and care. We will keep him as comfortable as possible until he can be discharged. Arvind Armstrong DO MTDD
--- NOTE | 2018-08-16 16:04 | PN ---
DATE: 08/16/2018 SUBJECTIVE: The patient is in bed, in no acute distress, nontoxic. PHYSICAL EXAMINATION: VITAL SIGNS: On exam, temperature is 98, blood pressure is 102/60, respiratory rate of 18. HEENT: Examination of HEENT is unremarkable. NECK: Supple. LUNGS: Have decreased breath sounds. HEART: Normal S1, S2. ABDOMEN: Soft. LABORATORY DATA: Laboratory examination is noted with a white count of 4.3, hemoglobin of 11, BUN of 12, creatinine of 1.2. ASSESSMENT AND PLAN: A 53-year-old male who was seen earlier this morning with sepsis, right-sided possible colitis, acute kidney injury, traumatic brain injury, residual right-sided weakness, aphasia, hypertension, currently now off of antibiotics, afebrile and the patient is at risk for developing nosocomial infections. Haider Pimentel MD
[2018-08-16 17:23] VITALS: BP 100/63; PULSE 73; TEMP 98.2
== END 2018-08-16 22:30 | disposition home health service (06) | DRG 871 ==
LOC: ED 11:51 → CCU 18:21 → UNDOADMIN 18:24 → ERH 18:24 → CCU 21:46 → 2RNO 08-12 18:50
PROVIDERS: ADMIT Family Medicine; ATTEND Family Medicine
DX: A41.9 Sepsis, unspecified organism (principal); R57.1 Hypovolemic shock; G92 Toxic encephalopathy; N17.9 Acute kidney failure, unspecified; E87.2 Acidosis; R47.01 Aphasia; K52.89 Other specified noninfective gastroenteritis and colitis; R62.7 Adult failure to thrive; I10 Essential (primary) hypertension; E78.5 Hyperlipidemia, unspecified; Z87.820 Personal history of traumatic brain injury; D64.9 Anemia, unspecified; Z79.899 Other long term (current) drug therapy